=== PATIENT | male | born 1935 | race Caucasian/White ===

== ENCOUNTER 2017-09-11 09:39 | Inpatient (IN) ==
--- NOTE | 2017-09-11 10:01 | Emergency Department Note ---
Disposition Clinical Impression: Hyperglycemia Diabetic foot ulcer Qualifiers: Diabetic foot ulcer location: unspecified part of foot Diabetes mellitus type: due to underlying condition Laterality: left Non-pressure ulcer stage: with other severity Qualified Code(s): E08.621 - Diabetes mellitus due to underlying condition with foot ulcer Disposition: Admitted As Inpatient Condition: Fair Time of Disposition: 10:03 Wound/Laceration HPI - General Chief Complaint: ED Wound/Laceration Stated Complaint: General Time Seen by Provider: 09/11/17 09:44 Source: patient, family Limitations: other (Alzheimer's dementia) Nursing Notes Reviewed: Yes Vital Signs Reviewed: Yes - History of Present Illness HPI Narrative: Patient sent to the emergency department for admission at the recommendation of the thermal surfacing machine operator. The patient has both peripheral arterial disease and diabetes causing a left plantar surface foot ulceration which is secondarily infected. Patient requires admission for debridement. He denies pain. Onset (ago): month(s) Extremity Location: Left: foot Treatments prior to arrival: bandage, other (Topical gentamicin) - Related Data Home Medications Medication Instructions Recorded Confirmed Aspirin [Adult Aspirin Regimen] 81 mg PO DAILY 05/08/17 09/11/17 Simvastatin [Zocor] 40 mg PO HS 05/08/17 09/11/17 Allergies Allergy/AdvReac Type Severity Reaction Status Date / Time No Known Allergies Allergy Verified 05/08/17 12:17 All systems ED: reviewed and negative except as stated. Constitutional: Reports: as per HPI Eyes: Reports: as per HPI ENT ED: Reports: as per HPI Cardiovascular: Reports: as per HPI Respiratory: Reports: as per HPI Gastrointestinal: Reports: as per HPI Genitourinary: Reports: as per HPI Musculoskeletal: Reports: as per HPI Integumentary: Reports: other (Left foot ulcer. Right third toe lesion) Neurological: Reports: as per HPI Psychiatric: Reports: as per HPI Endocrine: Reports: as per HPI Hematological/Lymphatic: Reports: as per HPI Allergic/Immunologic: Reports: as per HPI Past Medical History - Past Medical History Source: old records reviewed Medical history: Reports: coronary artery disease, dementia, diabetes, hyperlipidemia, hypertension, myocardial infarction Surgical history: Reports: coronary bypass (CABG) Psychiatric history: Reports: no psych history - Social History Smoking Status: Former smoker Alcohol use: Reports: none Drug use: Reports: none Physical Exam - General Limitations: no limitations General appearance: alert - Head Head exam: atraumatic - Eye Eye exam: Present: normal appearance - ENT ENT exam: normal exam - Neck Neck exam: Present: normal inspection, full ROM - Chest Chest inspection: Present: normal inspection, symmetric chest wall rise - Respiratory Respiratory exam: Present: normal lung sounds bilaterally - Cardiovascular Cardiovascular exam: Present: regular rate, normal rhythm, normal heart sounds - Rectal Exam Rectal exam: Present: deferred - Extremities Exam Extremities exam: Present: other (Bandage over her right lower extremity third digit) - Expanded Lower Extremity Exam Lower leg exam: Present: normal inspection Ankle exam: Present: normal inspection Foot/toe exam: Present: other (Quarter-sized ulcerative lesion to the plantar surface of the left foot with necrotic tissue present around the edges. Exposed soft tissue and suspected exposure of flexor tendons.) - Neurological Exam Neurological exam: Present: alert - Psychiatric Psychiatric exam: Present: normal mood, flat affect - Skin Skin exam: Present: warm, dry Course Course Narrative: Patient presents at the recommendation of the thermal surfacing machine operator due to a diabetic foot ulcer. I will obtain basic labs and contact the hospitalist for admission Vital Signs Temperature 97.7 F 09/11/17 09:40 Pulse Rate 68 09/11/17 09:40 Respiratory Rate 18 09/11/17 09:40 Blood Pressure 132/69 09/11/17 09:40 O2 Sat by Pulse Oximetry 98 09/11/17 09:40 Temperature 97.7 F 09/11/17 10:21 Pulse Rate 68 09/11/17 10:21 Respiratory Rate 18 09/11/17 10:21 Blood Pressure 132/69 09/11/17 10:21 O2 Sat by Pulse Oximetry 98 09/11/17 10:21 Oxygen Delivery Oxygen Delivery Room Air Wound/Laceration - Lab Data Lab results reviewed: Yes I reviewed the patient's lab results. Result diagrams: 09/11/17 10:14 09/11/17 10:14 Lab Results 09/11/17 09/11/17 09/11/17 Range/Units 10:14 10:14 10:14 WBC 10.5 (4.3-11.1) K/mcL RBC 4.42 (4.19-5.50) M/mcL Hgb 13.9 (12.9-16.9) g/dL Hct 42.4 (37.5-50.1) % MCV 95.9 (83.0-100.0) fL MCH 31.4 (28.0-33.3) pg MCHC 32.8 (31.6-35.5) g/dL RDW 14.2 (11.5-14.5) % Plt Count 260 (140-400) K/mcL MPV 10.8 (9.4-12.4) fL Immature Gran % 0.5 (0-4) % Seg Neutrophils % 76.2 % Lymphocytes % 13.6 % Monocytes % 8.8 % Eosinophils % 0.6 % Basophils % 0.3 % Neutrophils # 8.0 (1.6-8.9) K/mcL Lymphocytes # 1.4 (0.6-4.6) K/mcL Monocytes # 0.9 (0.0-1.3) K/mcL Eosinophils # 0.1 (0.0-0.6) K/mcL Basophils # 0.0 (0.0-0.2) K/mcL PT 14.4 H (9.4-12.1) Seconds INR 1.3 Sodium 134 L (136-145) mEq/L Potassium 4.3 (3.5-5.1) mEq/L Chloride 102 (98-107) mEq/L Carbon Dioxide 23 (23-29) mEq/L BUN 18 (8-23) mg/dL Creatinine 1.11 (0.70-1.30) mg/dL Est GFR ( Amer) > 60 (> 60) Est GFR (Non-Af Amer) > 60 (> 60) BUN/Creatinine Ratio 16 (6-26) Glucose 295 H (70-105) mg/dL Calculated Osmolality 291 (280-300) Calcium 9.0 (8.6-10.3) mg/dL Total Bilirubin 0.7 (0.3-1.0) mg/dL AST 54 H (13-39) Units/L ALT 83 H (7-52) Units/L Alkaline Phosphatase 77 (34-104) Units/L Serum Total Protein 7.2 (6.4-8.9) g/dL Albumin 3.8 (3.5-5.7) g/dL Globulin 3.4 (2.4-3.5) g/dL Albumin/Globulin Ratio 1.1 (1.1-2.2) - Radiology Data Radiology results reviewed: Yes I reviewed the patient's radiology results.
[2017-09-11 10:38] LABS: Basophils % 0.3 %; Eosinophils # 0.1 K/mcL (0.0-0.6); Eosinophils % 0.6 %; Hematocrit 42.4 % (37.5-50.1); Hemoglobin 13.9 g/dL (12.9-16.9); Immature Granulocytes % 0.5 % (0-4); Lymphocytes # 1.4 K/mcL (0.6-4.6); Lymphocytes % 13.6 %; Mean Corpuscular HGB Conc 32.8 g/dL (31.6-35.5); Mean Corpuscular Hemoglobin 31.4 pg (28.0-33.3); Mean Corpuscular Volume 95.9 fL (83.0-100.0); Mean Platelet Volume 10.8 fL (9.4-12.4); Monocytes # 0.9 K/mcL (0.0-1.3); Monocytes % 8.8 %; Platelet Count 260 K/mcL (140-400); Red Blood Count 4.42 M/mcL (4.19-5.50); Red Cell Distribution Width 14.2 % (11.5-14.5); Segmented Neutrophils % 76.2 %
[2017-09-11 10:47] LABS: INR 1.3; Prothrombin Time 14.4 Seconds (9.4-12.1)
[2017-09-11] MEDS: Gentamicin Oint 15 GM TUBE TP ONE (11:25)
[2017-09-11 11:57] LABS: Alanine Aminotransferase 83 Units/L (7-52); Albumin 3.8 g/dL (3.5-5.7); Albumin/Globulin Ratio 1.1 (1.1-2.2); Alkaline Phosphatase 77 Units/L (34-104); Aspartate Amino Transferase 54 Units/L (13-39); BUN/Creatinine Ratio 16 (6-26); Bilirubin,Total 0.7 mg/dL (0.3-1.0); Blood Urea Nitrogen 18 mg/dL (8-23); Carbon Dioxide 23 mEq/L (23-29); Chloride 102 mEq/L (98-107); Globulin 3.4 g/dL (2.4-3.5); Glucose 295 mg/dL (70-105); Osmolality,Calculated 291 (280-300); Potassium 4.3 mEq/L (3.5-5.1); Sodium 134 mEq/L (136-145); Total Protein 7.2 g/dL (6.4-8.9); eGFR For African Americans > 60 (> 60); eGFR For Non-African Americans > 60 (> 60)
--- NOTE | 2017-09-11 13:28 | Podiatry Consult Note ---
Date of Encounter: 09/11/17 Time of Encounter: 17:30 Assessment and Plan (1) Type 2 diabetes mellitus with foot ulcer Current visit: Yes Status: Acute Qualifiers: Diabetes mellitus correction insulin use: without watermelon inspector use Qualified Code(s): E11.621 - Type 2 diabetes mellitus with foot ulcer; L97.509 - Non- pressure chronic ulcer of other part of unspecified foot with unspecified severity (2) Osteomyelitis of ankle and foot Current visit: Yes Status: Acute Reviewed with patient and family his condition, my findings, and there are treatment options. going to partial 1st ray amputation, right 3rd digit amputation after having the risks vs benefits potential complications and consequences of surgery and condition discussed. no guarantees made as to the outcome. patient is high risk for limb loss. will require nursing facility after surgery. get ID consult to follow for abx recs. will be non-weight bearing the left foot following surgery and on bed rest. patient unable to remain non-weight bearing at home due to condition and memory loss. POA signed consent. NPO after breakfast. History of Present Illness HPI: Mr. Cano is a 81 year old male with a history of Alzheimer's and diabetes. His diabetes is under good control. He also has vascular disease. He has a chronic wound submetatarsal one on the left foot with exposed bone and a right third digit ulceration which also has exposed bone. Patient has failed all conservative treatment and admitted to the hospital for surgical intervention and senior living placement. Family reports the area became red and swollen with increased drainage on the left foot. Past Med Surg Social Fam HX - Past Medical History Medical history: coronary artery disease, dementia, diabetes, hyperlipidemia, hypertension, myocardial infarction Psychiatric history: no psych history - Past Surgical History Surgical History: coronary bypass (CABG) - Social History Smoking Status: Former smoker Alcohol use: none Drug use: none - Family History Father Living Status: Hx Family Cardiac Disorders: Yes Hx Family Respiratory Disorders: No Hx Family Cancer: No Hx Family GI Disorders: No Hx Family Endocrine Disorder: No Hx Family Neuromuscular Disorders: No Hx Family Neurologic Disorders: No Hx Family HEENT Disorders: No Hx Family Autoimmune Disorders: No Mother Living Status: Hx Family Cardiac Disorders: Yes Hx Family Respiratory Disorders: No Hx Family Cancer: No Hx Family GI Disorders: No Hx Family Endocrine Disorder: No Hx Family Neuromuscular Disorders: No Hx Family Neurologic Disorders: No Hx Family HEENT Disorders: No Hx Family Autoimmune Disorders: No Brother History Unknown: Yes Living Status: Age at : 80 Cause of : Unknown Medications and Allergies Aspirin [Adult Aspirin Regimen] 81 mg PO DAILY 05/08/17 [History] Simvastatin [Zocor] 40 mg PO HS 05/08/17 [History] 3 Allergy/AdvReac Type Severity Reaction Status Date / Time metoprolol AdvReac Rash Verified 09/11/17 13:24 All Systems Reviewed: The remainder of the systems were reviewed and are negative - Constitutional Constitutional: no fever(s) - Cardiovascular Cardiovascular: no chest pain, no dyspnea - Respiratory Respiratory: no cough, no dyspnea - Musculoskeletal Musculoskeletal: joint swelling, numbness Physical Exam - Constitutional Vitals: Temp Pulse Resp BP Pulse Ox 97.7 F 68 18 132/69 98 09/11/17 10:21 09/11/17 10:21 09/11/17 10:21 09/11/17 10:21 09/11/17 10:21 Exam: well developed and nourished male left plantar submet 1 bone exposed, tendon exposed, circular wound [id number]. periowound erythema. increased serous drainage. no fluctuance. pain with palpation of ulceration site. pain with palpation right 3rd toe. right 3rd toe erythema. diminished protective sensation. Results - Labs Result Diagrams: 09/11/17 10:14 09/11/17 10:14 Labs: Abnormal lab results PT 14.4 Seconds (9.4-12.1) H 09/11/17 10:14 Sodium 134 mEq/L (136-145) L 09/11/17 10:14 Glucose 295 mg/dL (70-105) H 09/11/17 10:14 AST 54 Units/L (13-39) H 09/11/17 10:14 ALT 83 Units/L (7-52) H 09/11/17 10:14 All other labs normal. Consult Discharge Plan - Plan Referrals: Brock Ridley DO [Primary Care Provider] -
[2017-09-11] MEDS ORDERED: *HR* Dextrose 50 % in Water (Syg) 50 ML SYRINGE IVP PRN (13:40)
[2017-09-11] MEDS ORDERED: D5% in Water 1,000 ML IVC PRN (13:40)
[2017-09-11] MEDS ORDERED: Dextrose Gel 15 GM/37.5 ML TUBE PO PRN ×2 (13:40)
[2017-09-11] MEDS ORDERED: Naloxone 0.4 MG/ML INJ IVP PRN (13:49)
--- NOTE | 2017-09-11 14:43 | Internal Med History&Physical ---
<AshcristinaangieRiaz castañeda - Last Filed: 09/11/17 15:22> Date of Encounter: 09/11/17 Time of Encounter: 13:00 Internal Medicine - H&P: HPI Chief complaint: Pain/Wound to left foot Admitted From: Emergency Dept Plans for Post Hospital Care: Transfer Longterm Facility History of present illness: Mr. Cano is a 81 year old male w/PMH of CAD, dementia, diabetes that was previously controlled with metformin and now is not well-controlled, HLD, HTN, and previous VA greater than 10 years ago requiring coronary bypass presents from the ED with chief complaint of pain, swelling, and discharge from a diabetic ulcer of the left foot on the plantar surface. Patient states family state they were unaware of foot ulcer until recently. Patient has history of underlying dementia. Patient's states patient had fever and sweats 2 nights ago and appeared altered in mentation more so than usual. Patient denies pain currently in foot. Pt. denies recent illness, nausea, vomiting, changes in vision, unusual bleeding, headache, cough, chest congestion, shortness of breath, chest pain, palpitations, abdominal pain, diarrhea, constipation, dizziness, lightheadedness, numbness, tingling, pre-syncope, or syncope. Past Med Surg Social Fam HX - Past Medical History Source: patient, old records reviewed, obtained from family Medical history: coronary artery disease, dementia, diabetes, hyperlipidemia, hypertension, myocardial infarction (>15 years ago resulting in CABG) Psychiatric history: no psych history - Past Surgical History Surgical History: coronary bypass (CABG) - Social History Smoking Status: Former smoker Packs per day: 1 PPD - Reports quittin in 1979 Alcohol use: none Drug use: none Current living situation: Home, With Family Activity Level: Independent ambulation Recent Out of Country Travel Within the Last 8 Weeks: No Exposure or Possible Exposure to Illness During Travel: No - Family History Father Race: Family Member Ethnicity: Non- Living Status: Age at : 85 Cause of : CHF Hx Family Cardiac Disorders: Yes (CHF, PAD) Mother Race: Family Member Ethnicity: Non- Living Status: Age at : 93 Cause of : CHF Hx Family Cardiac Disorders: Yes (CHF, CAD, CABG) Brother History Unknown: Yes Living Status: Age at : 80 Cause of : Unknown Internal Medicine - H&P: Meds Aspirin [Adult Aspirin Regimen] 81 mg PO DAILY 05/08/17 [History] Simvastatin [Zocor] 40 mg PO HS 05/08/17 [History] 3 Allergy/AdvReac Type Severity Reaction Status Date / Time metoprolol AdvReac Rash Verified 09/11/17 13:24 All Systems PM: A 10-system review of systems was performed and is negative for pertinent findings except as documented above in the HPI. - Constitutional Constitutional: as per HPI, chills, excessive sweating, fever(s), no night sweats - EENT Eyes: no change in vision, no discharge, no pain, no photophobia Ears: no ear discharge, no ear pain, no tinnitus Nose, mouth and throat: no dysphagia, no nasal discharge, no neck pain, no sore throat - Breasts Breasts: as per HPI - Cardiovascular Cardiovascular ROS IM: no chest pain, no diaphoresis, no dyspnea, no lightheadedness, no palpitations, no syncope - Respiratory Respiratory: no cough, no dyspnea, no wheezing, no excessive phlegm production - Gastrointestinal Gastrointestinal: no abdominal pain, no diarrhea, no hematemesis, no hematochezia, no melena, no nausea, no vomiting - Genitourinary Genitourinary ROS male: as per HPI - Musculoskeletal Musculoskeletal ROS IM: no numbness, no tingling - Integumentary Integumentary IM: as per HPI, erythema (Left foot plantar region), skin ulcer ( Left foot) - Neurological Neurological ROS: no confusion, no convulsions, no focal weakness, no numbness, no tingling, no tremor(s) - Psychiatric Psychiatric: as per HPI - Endocrine Endocrine IM: as per HPI - Hematologic/Lymphatic Hematologic/Lymphatic: no easy bruising - Allergic/Immunologic Allergic/Immunologic: as per HPI - Constitutional Vitals: Temp Pulse Resp BP Pulse Ox 97.7 F 68 18 132/69 98 09/11/17 10:21 09/11/17 10:21 09/11/17 10:21 09/11/17 10:21 09/11/17 10:21 General appearance: Present: cooperative, A&O X 2, pleasant, no acute distress, answers questions appropriately - Head Head exam: Present: atraumatic, normocephalic - Eye Eye exam: Present: PERRL, conjuntiva pink, sclera anicteric Pupils: Present: PERRL - ENT ENT exam: Present: normal exam - Neck Neck exam general surgery: Present: normal inspection, supple, trachea midline. Absent: lymphadenopathy - Respiratory Respiratory exam: Present: CTAB. Absent: accessory muscle use, rales, rhonchi, wheezes - Cardiovascular Cardiovascular exam: Present: RRR, +S1, +S2. Absent: diastolic murmur, gallop, rubs, systolic murmur - GI/Abdominal GI/Abdominal exam: Present: normal bowel sounds, soft, no peritoneal signs. Absent: distended, tenderness - Rectal Rectal exam: Present: deferred - Additional comments: exam deferred. - Extremities Exam Extremities exam: Present: warm, radial pulses palpable and symmetrical. Absent : calf tenderness, cyanotic, pedal edema - Back Exam Back exam: Present: normal inspection - Neurological Exam Neurological exam: Present: CN II-XII intact, oriented X3, no focal deficits. Absent: pronater drift, facial droop, speech deficit - Psychiatric Psychiatric exam: Present: normal affect, normal mood - Skin Skin exam: Present: dry, intact Internal Med - H&P Results - Labs CBC & Chem 7: 09/11/17 10:14 09/11/17 10:14 - Diagnostic Studies Other Images Additional comments: Impressions Foot X-Ray 09/11/17 09:55 IMPRESSION: 1. Ulceration in the plantar left forefoot at the level of the 1st metatarsophalangeal joint with no definite findings of underlying osteomyelitis. Consider further evaluation with MRI if this is a clinical concern. Minimal adjacent soft tissue gas is likely related to the open wound, and the appearance is not suggestive of necrotizing fasciitis. 2. Bony demineralization. D/ / Bong Astorga MD / Bong Astorga MD Interpreting Provider: Bong Astorga MD - Assessment and plan (1) Diabetic foot ulcer Current Visit: Yes Status: Acute Assessment and plan: Acute diabetic foot ulcer of the left foot on the plantar region. 3V XR shows ulceration in the plantar left forefoot at the level of the first metatarsophalangeal joint with no definite findings of underlying osteomyelitis. Consider further evaluation with MRI if this is a clinical concern. Minimal adjacent soft tissue gas is likely related to the open wound and the appearance is not suggestive necrotizing fasciitis. Bony demineralization. Pt. has hx of diabetes that is not well-controlled and dementia. Family states they were unaware of the pts. foot ulcer. MRI ordered. Podiatry consult ordered in ED and I appreciate the consult. Wound care and wound culture ordered. Blood cultures x2 ordered. IVPB vancomycin with pharmacy dosing and Zosyn 3.375 gm every 8 hour ordered for infection coverage. Stair- step pain medication for pain mgmt. Falls/safety precautions and up with assist only. Pt. discussed w/Dr. Edouard who agrees w/plan of care. Pt. is high risk for further morbidity and infection d/t advanced stage of wound requiring debridement and IV abx, uncontrolled diabetes, hx, and risk factors. Inpatient. Qualifiers: Diabetic foot ulcer location: unspecified part of foot Diabetes mellitus type: due to underlying condition Laterality: left Non-pressure ulcer stage : with other severity Qualified Code(s): E08.621 - Diabetes mellitus due to underlying condition with foot ulcer; L97.528 - Non-pressure chronic ulcer of other part of left foot with other specified severity (2) Hyperglycemia Current Visit: Yes Status: Acute Assessment and plan: Hx of diabetes that was previously controlled by metformin was discontinued due to patient becoming hypoglycemic. Patient's BG on admission 295. BG checks before meals at bedtime. A1c in a.m. labs. Add low-dose correction insulin sliding scale hypoglycemic protocol. Senior Medical Director consult and Nutrition consult focusing on diabetic diet ordered. (3) CAD (coronary artery disease) Current Visit: Yes Status: Chronic Assessment and plan: Hx of CAD w/previous hx of VA and CABG >10 years ago. Continuous cardiac telemetry. Continue pts. aspirin and Simvastatin. Qualifiers: Coronary Disease-Associated Artery/Lesion type: unspecified vessel or lesion type [place] vs. transplanted heart: [place] heart Associated angina: angina presence unspecified Qualified Code(s): I25.10 - Atherosclerotic heart disease of [place] coronary artery without angina pectoris (4) Dementia Current Visit: Yes Status: Chronic Assessment and plan: Hx of chronic dementia. Pts. family states that pt. was supposed to be started on 10 mg of Aricept HS but the prescription was lost. 10 mg Aricept ordered and should be added to pts. home medication list. Will add sitter if pt. becomes confused and/or agitated. Pts. reports fever/chills and AMS 2 days ago w/ mentation changes worse than baseline. U/A reflex micro and culture ordered to r /o UTI. Qualifiers: Dementia type: unspecified type Dementia behavioral disturbance: without behavioral disturbance Qualified Code(s): F03.90 - Unspecified dementia without behavioral disturbance (5) HLD (hyperlipidemia) Current Visit: Yes Status: Chronic Assessment and plan: Hx of chronic HLD. Lipid panel in a.m. labs. Continue pts. Simvastatin. Qualifiers: Hyperlipidemia type: pure hypercholesterolemia Qualified Code(s): E78.00 - Pure hypercholesterolemia, unspecified; E78.0 - Pure hypercholesterolemia (6) HTN (hypertension) Current Visit: Yes Status: Chronic Assessment and plan: Hx of chronic HTN. Monitor pt. and VS. Pts. family reports his PCP stopped his BP meds. Hydralazine 10 mg Q6HR PRN w/parameters ordered. Qualifiers: Hypertension type: essential hypertension Qualified Code(s): I10 - Essential (primary) hypertension (7) DVT prophylaxis Current Visit: Yes Status: Acute Assessment and plan: Heparin 5,000 units SQ Q12HR for DVT prophylaxis. Monitor pt. for signs of bleeding. - Time Spent With Patient Total time spent is greater than 50% in coordination of care (as documented) at patient's floor/unit and/or counseling patient: Greater than 35 minutes <Nancie Edouard - Last Filed: 09/12/17 10:07> Date of Encounter: 09/12/17 Internal Medicine - H&P: HPI History of present illness: Mr. Cano is a 81 year old male All Systems PM: A 10-system review of systems was performed and is negative for pertinent findings except as documented above in the HPI. - Constitutional Vitals: Temp Pulse Resp BP Pulse Ox 98.8 F 62 14 129/67 96 09/12/17 06:37 09/12/17 06:37 09/12/17 06:37 09/12/17 06:37 09/12/17 06:37 Internal Med - H&P Results - Labs CBC & Chem 7: 09/12/17 00:55 09/12/17 00:55 Labs: Short CBC 09/12/17 Range/Units 00:55 WBC 11.0 (4.3-11.1) K/mcL Hgb 11.9 L D (12.9-16.9) g/dL Hct 36.2 L (37.5-50.1) % Plt Count 247 (140-400) K/mcL Neutrophils # 7.4 (1.6-8.9) K/mcL BMP 09/12/17 00:55 Sodium 136 Potassium 4.0 Chloride 105 Carbon Dioxide 26 BUN 19 Creatinine 1.25 Glucose 215 H Calcium 8.5 L Liver Function 09/12/17 Range/Units 00:55 Total Bilirubin 0.4 (0.3-1.0) mg/dL AST 62 H (13-39) Units/L ALT 85 H (7-52) Units/L Alkaline Phosphatase 85 (34-104) Units/L Albumin 3.4 L (3.5-5.7) g/dL Urine 09/11/17 Range/Units 16:33 Urine Color Yellow (Yellow) Urine Clarity Clear (Clear) Urine pH 5.5 (5.0-8.0) pH Units Ur Specific [place] > 1.030 H (1.010-1.025) Urine Protein 30 H (Neg-Trace) mg/dL Urine Glucose (UA) 250 H (Normal) mg/dL - Attending Attestation Seen and assessed. Continue antibiotics for foot ulcer and follow up podiatry recs. Agree with plan per TIMBER SURVEYOR - Assessment and plan (1) Diabetic foot ulcer Current Visit: Yes Status: Acute Qualifiers: Diabetic foot ulcer location: unspecified part of foot Diabetes mellitus type: due to underlying condition Laterality: left Non-pressure ulcer stage : with other severity Qualified Code(s): E08.621 - Diabetes mellitus due to underlying condition with foot ulcer; L97.528 - Non-pressure chronic ulcer of other part of left foot with other specified severity (2) Hyperglycemia Current Visit: Yes Status: Acute (3) CAD (coronary artery disease) Current Visit: Yes Status: Chronic Qualifiers: Coronary Disease-Associated Artery/Lesion type: unspecified vessel or lesion type [place] vs. transplanted heart: [place] heart Associated angina: angina presence unspecified Qualified Code(s): I25.10 - Atherosclerotic heart disease of [place] coronary artery without angina pectoris (4) Dementia Current Visit: Yes Status: Chronic Qualifiers: Dementia type: unspecified type Dementia behavioral disturbance: without behavioral disturbance Qualified Code(s): F03.90 - Unspecified dementia without behavioral disturbance (5) HLD (hyperlipidemia) Current Visit: Yes Status: Chronic Qualifiers: Hyperlipidemia type: pure hypercholesterolemia Qualified Code(s): E78.00 - Pure hypercholesterolemia, unspecified; E78.0 - Pure hypercholesterolemia (6) HTN (hypertension) Current Visit: Yes Status: Chronic Qualifiers: Hypertension type: essential hypertension Qualified Code(s): I10 - Essential (primary) hypertension (7) DVT prophylaxis Current Visit: Yes Status: Acute - Time Spent With Patient Total time spent is greater than 50% in coordination of care (as documented) at patient's floor/unit and/or counseling patient:
[2017-09-11 16:58] LABS: Bilirubin,Urine Negative (Negative); Blood,Urine Negative (Negative); Clarity,Urine Clear (Clear); Color,Urine Yellow (Yellow); Glucose,Urine (UA) 250 mg/dL (Normal); Ketones,Urine Negative (Negative); Leukocyte Esterase,Urine Negative (Negative); Nitrite,Urine Negative (Negative); PH,Urine 5.5 pH Units (5.0-8.0); Protein,Urine 30 mg/dL (Neg-Trace); Specific Gravity,Urine > 1.030 (1.010-1.025); Urobilinogen,Urine Normal (Normal)
[2017-09-11 17:00] LABS: Bacteria,Urine None Seen per hpf (None-Few); Hyaline Casts,Urine None Seen per lpf (None-Few); RBC,Urine 0-3 per hpf (0-3); Squamous Epithelial Cell,Urine Many per lpf (None-Few); WBC,Urine 0-3 per hpf (0-3)
[2017-09-11] MEDS: *HR* Heparin 5,000 UNIT/ML VIAL SQ SCH (18:15)
[2017-09-11] MEDS: Piperacillin/Tazobactam 3.375 GM in 0.9 % Sodium Chloride Mini Bag 100 ML IVPB SCH ×2 (18:16→23:45)
[2017-09-11] MEDS: Insulin LISPRO 300 UNITS/3 ML VIAL SQ SCH (18:33)
[2017-09-11] MEDS: Acetaminophen 325 MG TABLET PO PRN (20:40)
--- NOTE | 2017-09-11 20:57 | Anesthesia Evaluation PreOp ---
Date of Encounter: 09/11/17 Time of Encounter: 21:00 - Past History Planned Operation: Partial L 1st Ray Amp w/Flap closure, R-3rd toe Amp Cardiac History: [place] (>10yrs ago s/p CABG), HTN, Hyperlipidemia, Cardiac Surgery (CABG approx 2001), Other (CAD) Pulmonary History: Former smoker, Smoker (1ppd x 30yrs, qut 1979) SECRETARY History: Other (Dementia) Other Medical History: Diabetes Type II Anesthesia History: No Prior Anesthetic Complications, Past Anesthesia (CABG) Alcohol Use: none Drug use: none Medications and Allergies Aspirin [Adult Aspirin Regimen] 81 mg PO DAILY 05/08/17 [History] Simvastatin [Zocor] 40 mg PO HS 05/08/17 [History] 3 Allergy/AdvReac Type Severity Reaction Status Date / Time metoprolol AdvReac Rash Verified 09/11/17 13:24 - Meds/Allergy Pre-op Review Medications Reviewed: Yes Allergies Reviewed: Yes Beta Blockers on Current Med List: No (Not on inpatient list) Anesthesia Results - Labs 09/11/17 10:14 09/11/17 10:14 Laboratory Results WBC 10.5 K/mcL (4.3-11.1) 09/11/17 10:14 RBC 4.42 M/mcL (4.19-5.50) 09/11/17 10:14 Hgb 13.9 g/dL (12.9-16.9) 09/11/17 10:14 Hct 42.4 % (37.5-50.1) 09/11/17 10:14 MCV 95.9 fL (83.0-100.0) 09/11/17 10:14 MCH 31.4 pg (28.0-33.3) 09/11/17 10:14 MCHC 32.8 g/dL (31.6-35.5) 09/11/17 10:14 RDW 14.2 % (11.5-14.5) 09/11/17 10:14 Plt Count 260 K/mcL (140-400) 09/11/17 10:14 MPV 10.8 fL (9.4-12.4) 09/11/17 10:14 Immature Gran % 0.5 % (0-4) 09/11/17 10:14 Seg Neutrophils % 76.2 % 09/11/17 10:14 Lymphocytes % 13.6 % 09/11/17 10:14 Monocytes % 8.8 % 09/11/17 10:14 Eosinophils % 0.6 % 09/11/17 10:14 Basophils % 0.3 % 09/11/17 10:14 Neutrophils # 8.0 K/mcL (1.6-8.9) 09/11/17 10:14 Lymphocytes # 1.4 K/mcL (0.6-4.6) 09/11/17 10:14 Monocytes # 0.9 K/mcL (0.0-1.3) 09/11/17 10:14 Eosinophils # 0.1 K/mcL (0.0-0.6) 09/11/17 10:14 Basophils # 0.0 K/mcL (0.0-0.2) 09/11/17 10:14 PT 14.4 Seconds (9.4-12.1) H 09/11/17 10:14 INR 1.3 09/11/17 10:14 Sodium 134 mEq/L (136-145) L 09/11/17 10:14 Potassium 4.3 mEq/L (3.5-5.1) 09/11/17 10:14 Chloride 102 mEq/L (98-107) 09/11/17 10:14 Carbon Dioxide 23 mEq/L (23-29) 09/11/17 10:14 BUN 18 mg/dL (8-23) 09/11/17 10:14 Creatinine 1.11 mg/dL (0.70-1.30) 09/11/17 10:14 Est GFR ( Amer) > 60 (> 60) 09/11/17 10:14 Est GFR (Non-Af Amer) > 60 (> 60) 09/11/17 10:14 BUN/Creatinine Ratio 16 (6-26) 09/11/17 10:14 Glucose 295 mg/dL (70-105) H 09/11/17 10:14 Calculated Osmolality 291 (280-300) 09/11/17 10:14 Calcium 9.0 mg/dL (8.6-10.3) 09/11/17 10:14 Total Bilirubin 0.7 mg/dL (0.3-1.0) 09/11/17 10:14 AST 54 Units/L (13-39) H 09/11/17 10:14 ALT 83 Units/L (7-52) H 09/11/17 10:14 Alkaline Phosphatase 77 Units/L (34-104) 09/11/17 10:14 Serum Total Protein 7.2 g/dL (6.4-8.9) 09/11/17 10:14 Albumin 3.8 g/dL (3.5-5.7) 09/11/17 10:14 Globulin 3.4 g/dL (2.4-3.5) 09/11/17 10:14 Albumin/Globulin Ratio 1.1 (1.1-2.2) 09/11/17 10:14 Urine Color Yellow (Yellow) 09/11/17 16:33 Urine Clarity Clear (Clear) 09/11/17 16:33 Urine pH 5.5 pH Units (5.0-8.0) 09/11/17 16:33 Ur Specific [place] > 1.030 (1.010-1.025) H 09/11/17 16:33 Urine Protein 30 mg/dL (Neg-Trace) H 09/11/17 16:33 Urine Glucose (UA) 250 mg/dL (Normal) H 09/11/17 16:33 Urine Ketones Negative mg/dL (Negative) 09/11/17 16:33 Urine Blood Negative (Negative) 09/11/17 16:33 Urine Nitrite Negative (Negative) 09/11/17 16:33 Urine Bilirubin Negative (Negative) 09/11/17 16:33 Urine Urobilinogen Normal mg/dL (Normal) 09/11/17 16:33 Ur Leukocyte Esterase Negative (Negative) 09/11/17 16:33 Urine Microscopic RBC 0-3 per hpf (0-3) 09/11/17 16:33 Urine Microscopic WBC 0-3 per hpf (0-3) 09/11/17 16:33 Ur Squamous Epith Cells Many per lpf (None-Few) H 09/11/17 16:33 Urine Bacteria None Seen per hpf (None-Few) 09/11/17 16:33 Hyaline Casts None Seen per lpf (None-Few) 09/11/17 16:33 Ur Culture Indicated? NO (NO) 09/11/17 16:33 Impressions Foot X-Ray 09/11/17 09:55 IMPRESSION: 1. Ulceration in the plantar left forefoot at the level of the 1st metatarsophalangeal joint with no definite findings of underlying osteomyelitis. Consider further evaluation with MRI if this is a clinical concern. Minimal adjacent soft tissue gas is likely related to the open wound, and the appearance is not suggestive of necrotizing fasciitis. 2. Bony demineralization. D/ / Bong Astorga MD / Bong Astorga MD Interpreting Provider: Bong Astorga MD Foot MRI 09/11/17 12:36 IMPRESSION: 1. MRI signal characteristics compatible with osteomyelitis in the 1st metatarsal head and shaft, the 1st proximal phalangeal base and shaft, and the hallux sesamoids. 2. Mild bone marrow edema with normal T1 signal in the 2nd metatarsal head compatible with noninfectious reactive osteitis versus early osteomyelitis. 3. Deep soft tissue ulceration plantar to the 1st metatarsal head with soft tissue gas between the 1st and 2nd metatarsal heads. No sinus tract or drainable fluid collection. 4. The ulceration likely communicates with the flexor hallucis longus tendon sheath with mild tenosynovitis and a suspected high-grade or complete tear of the tendon. D/ / Sandeep Alejo MD / Sandeep Alejo MD Interpreting Provider: Sandeep Alejo MD - Imaging EKG: image reviewed (64bpm SR) Anesthesia Exam Vital Signs Temp Pulse Resp BP Pulse Ox 09/11/17 20:30 101.1 F H 86 15 145/72 98 09/11/17 14:38 97.9 F 66 15 148/74 99 09/11/17 10:21 97.7 F 68 18 132/69 98 09/11/17 09:40 97.7 F 68 18 132/69 98 Intake and Output 09/11/17 09/11/17 09/11/17 07:59 15:59 23:59 Intake Total 120 / 120 490 / 490 Output Total 0 / 0 0 / 0 Balance 120 / 120 490 / 490 Intake: IV Fluids 250 / 250 Vancocin 1,250 MG In 0.9 % 250 / 250 Sodium Chloride 250 ML @ 166.67 mls/hr IVPB Q12H [facility] Rx#: [id number] Oral 120 / 120 240 / 240 Output: Urine 0 / 0 0 / 0 Other: Meal Lunch Dinner Percent of Meal Consumed 100% 95% Weight 75.189 kg Blood Glucose* 250 Patient Weight 09/11/17 23:59 Weight 75.189 kg Height: 5'7" Weight: 165# BMI = 26 NPO (# of Hours): MNoc Pain Scale Used: Numeric (1 - 10) - HEENT Pupil (Motor): Pupils equal, EOMI Mallampati: III Teeth: Normal (Fair dentition with irregular, cracked surfaces) Oral Opening: Greater than 3 - SECRETARY LOC: Oriented SECRETARY Motor: Normal RUE, Normal LUE, Normal RLE, Normal LLE, Normal Face SECRETARY Sensory: Normal: RUE, LUE, RLE, LLE, Face - Cardiac Rhythm: Regular Murmur: None - Pulmonary Breath Sounds: bilateral Clear Respiratory Effort: Symmetrical Anesthesia Assess/Plan ASA Score: 3 Modified [place] Scale for Level of Consciousness: Cooperative, oriented, and tranquil Anesthetic Plan: General, MAC Monitoring Plan: Standard Monitors Recovery Plan: PACU Anes Supervising Prov Stmt: Pt seen/evaluted, R&B Discussed,questions answered and consent obtained. Alonso Lanier MD
[2017-09-11] MEDS ORDERED: Insulin LISPRO 300 UNITS/3 ML VIAL SQ SCH (21:00)
[2017-09-12 01:45] LABS: Basophils % 0.4 %; Eosinophils # 0.1 K/mcL (0.0-0.6); Eosinophils % 0.8 %; Hematocrit 36.2 % (37.5-50.1); Immature Granulocytes % 0.4 % (0-4); Lymphocytes # 2.2 K/mcL (0.6-4.6); Lymphocytes % 20.1 %; Mean Corpuscular HGB Conc 32.9 g/dL (31.6-35.5); Mean Corpuscular Volume 94.3 fL (83.0-100.0); Mean Platelet Volume 10.9 fL (9.4-12.4); Monocytes # 1.2 K/mcL (0.0-1.3); Monocytes % 11.1 %; Neutrophils # 7.4 K/mcL (1.6-8.9); Platelet Count 247 K/mcL (140-400); Red Blood Count 3.84 M/mcL (4.19-5.50); Red Cell Distribution Width 14.4 % (11.5-14.5); Segmented Neutrophils % 67.2 %
[2017-09-12 01:48] LABS: Hemoglobin 11.9 g/dL (12.9-16.9)
[2017-09-12 02:05] LABS: Alanine Aminotransferase 85 Units/L (7-52); Albumin 3.4 g/dL (3.5-5.7); Albumin/Globulin Ratio 1.1 (1.1-2.2); Alkaline Phosphatase 85 Units/L (34-104); Aspartate Amino Transferase 62 Units/L (13-39); BUN/Creatinine Ratio 15 (6-26); Bilirubin,Total 0.4 mg/dL (0.3-1.0); Blood Urea Nitrogen 19 mg/dL (8-23); Calcium 8.5 mg/dL (8.6-10.3); Carbon Dioxide 26 mEq/L (23-29); Chloride 105 mEq/L (98-107); Chol/HDL Ratio 3.6 (0-4.9); Cholesterol 79 mg/dL (< 200); Globulin 3.2 g/dL (2.4-3.5); Glucose 215 mg/dL (70-105); HDL Cholesterol 22 mg/dL (40-59); LDL Cholesterol,Calculated 39 mg/dL (0-99); Magnesium 2.2 mg/dL (1.6-2.6); Osmolality,Calculated 291 (280-300); Sodium 136 mEq/L (136-145); Total Protein 6.6 g/dL (6.4-8.9); Triglycerides 88 mg/dL (< 150); eGFR For African Americans > 60 (> 60); eGFR For Non-African Americans 55 (> 60)
[2017-09-12] MEDS: Acetaminophen 325 MG TABLET PO PRN ×2 (05:06→14:23)
[2017-09-12] MEDS: *HR* Heparin 5,000 UNIT/ML VIAL SQ SCH (05:06)
[2017-09-12] MEDS: Piperacillin/Tazobactam 3.375 GM in 0.9 % Sodium Chloride Mini Bag 100 ML IVPB SCH ×2 (08:36→23:06)
[2017-09-12] MEDS ORDERED: Aspirin Enteric Coated 81 MG Tablet PO SCH (09:00)
[2017-09-12] MEDS: Insulin LISPRO 300 UNITS/3 ML VIAL SQ SCH ×2 (12:22→23:07)
[2017-09-12] MEDS: Gentamicin Oint 15 GM TUBE TP ONE (12:31)
[2017-09-12 14:15] LABS: Estimated Average Glucose 143 mg/dl; Hemoglobin A1C 6.6 %
[2017-09-12] MEDS ORDERED: *HR* FentaNYL (PF) 100 MCG/2 ML VIAL ONE (15:15)
[2017-09-12] MEDS ORDERED: Bupivacaine/EPI 1:200k 0.25%PF 30 ML VIAL ONE (15:15)
[2017-09-12] MEDS ORDERED: Lidocaine 1% 20 ML MDV ONE (15:15)
[2017-09-12] MEDS ORDERED: *HR* Propofol 200 MG/20 ML VIAL IVP ONE (15:15)
[2017-09-12] MEDS ORDERED: Propofol 500 MG/50 ML INFUS..BTL ONE (15:31)
[2017-09-12] MEDS ORDERED: Lidocaine -MPF 2% 2 ML VIAL ONE (16:57)
--- NOTE | 2017-09-12 18:10 | Operative Note ---
Date of procedure: 09/12/17 Pre-op diagnosis: left foot osteomyelitis, right 3rd toe osteomyelitis, chronic ulcer Post-op diagnosis: same Procedure: left partial 1st ray amputation left soft tissue rearrangement right 3rd digit amputation at the level of the interphalangeal joint Anesthesia: MAC Local Anesthetics: 1% Lidocaine HCL SubQ (cc) Surgeon: Navdeep Ríos Was there an clinic assistant present: No Estimated blood loss (cc): 50 Specimen: path-left foot bone, right 3rd toe micro-bone left foot, ulcer Condition: stable Disposition: PACU Procedure in Detail: Indications: A 81-year-old diabetic male with dementia and unable to follow instructions due to his mental status has a worsening left foot ulceration with underlying osteomyelitis and they will so infection of the right third toe distal phalanx. He was admitted to the hospital. Nature of the above procedures, risks versus benefits potential complications and consequences of surgery and his condition discussed at length with the patient and his power of environmental attorney. No guarantees were made as to the outcome of any procedure and they understood that the tissue condyle with his inadequate blood flow which is unable to be restored. He has been evaluated by vascular surgery. No intervention was able to be done. Patient was taken from preoperative holding area and operating room placed on the operating room table in the supine position 1% lidocaine plain was injected into both the right and left foot. The right and left foot were scrubbed prepped and draped in the usual sterile fashion and the following procedures began. No tourniquet was used during the entire procedure. Right third digit amputation. Attention was directed to the right third digit where a [place] type incision was made full-thickness down to the level of the bone over the right third digit. The distal aspect of the toe was grasped and purulent drainage was noted to be expressed from the soft tissue. The toe was disarticulated at the proximal interphalangeal joint. The tissue left behind was inspected and no devitalized tissue was present. There was no erythema of the remaining skin and it was deemed adequate for closure. The right third digit was sent to pathology. Tendons were cut back as far proximal as possible. The site was flushed with normal sterile saline mixed with vancomycin and 3-0 Prolene was used to close the site. Attention was then directed to the left foot. Soft tissue rearrangement left foot and partial first ray amputation left foot. Attention was directed to the plantar aspect of the patient's left foot where a 2.5 cm x 2.5 cm x 0.5cm ulceration was present with exposed bone and tendon. An incision was made on the plantar aspect of the foot full-thickness starting at the distal aspect of the hallux extending to the ulceration. The ulceration was excised. Culture swab of the ulcer site was taken. Significant devitalized tissue was present deep to the ulceration and surrounding adjacent tissue. The incision was extended proximally along the plantar aspect of the first metatarsal. The proximal and distal phalanx were freed from their soft tissue attachments as was the metatarsal plantarly. The sagittal saw was then used to cut the first metatarsal bone. The bone of the proximal phalanx distal phalanx and first metatarsal were then removed. The bone that was directly beneath the ulceration and the bone of the first metatarsophalangeal joint was noted to be dark in appearance and devitalized. Bone was sent to both microbiology and path collagen. The sesamoids were also excised. The site was flushed with 3 L of saline with 3 grams of vancomycin. Devitalized tissue present in the plantar aspect of the foot was excised using a #15 blade. The rasp was used to smooth the end of the first metatarsal remaining. Flexor and extensor tendons cut back as far proximal as possible. With the partial first ray amputation performed and nonviable tissue adequately excised and no purulence able to be expressed from any site, the decision was made to perform a soft tissue rearrangement flap an effort to close the plantar left foot wound. Adequate hemostasis was felt to be present and no active bleeding. There was evidence of blood at the amputation site in the soft tissue. The distal toe soft tissue was then used as a flap and rotated to the plantar aspect of the foot and 2-0 nylon was used to close over the soft tissue defect. The flap of skin was also cut with a #15 blade and rotated medially and utilized to cover the remaining soft tissue wound/defect. The skin flap was sutured into place using 2-0 nylon. Closure of the wound had been achieved. The flap site on the left site was warm to touch as was the amputation site of the right third digit. Postoperative bandaging included Adaptic, 4 x 4 gauze, ABD pad, Kerlix and Darrius and a loosely applied Corey wrap. The patient tolerated the anesthesia and the procedure well and was escorted the recovery room with vital signs stable. He will return to the floor where he will remain on bedrest at this time.
[2017-09-12] MEDS ORDERED: *HR* OxyCODONE/APAP 5/325 TABLET PO PRN (18:13)
[2017-09-12] MEDS ORDERED: Acetaminophen 325 MG TABLET PO PRN (18:25)
[2017-09-12] MEDS ORDERED: Naloxone 0.4 MG/ML INJ IVP PRN (18:25)
[2017-09-12] MEDS ORDERED: D5% in Water 1,000 ML IVC PRN (18:25)
[2017-09-12] MEDS ORDERED: *HR* Dextrose 50 % in Water (Syg) 50 ML SYRINGE IVP PRN (18:25)
[2017-09-12] MEDS ORDERED: Dextrose Gel 15 GM/37.5 ML TUBE PO PRN ×2 (18:25)
[2017-09-12] MEDS: *HR* OxyCODONE/APAP 5/325 TABLET PO PRN (18:40)
[2017-09-13 04:12] LABS: Basophils % 0.3 %; Eosinophils % 0.2 %; Hematocrit 35.5 % (37.5-50.1); Hemoglobin 11.9 g/dL (12.9-16.9); Immature Granulocytes % 0.4 % (0-4); Lymphocytes # 1.3 K/mcL (0.6-4.6); Lymphocytes % 10.9 %; Mean Corpuscular HGB Conc 33.5 g/dL (31.6-35.5); Mean Corpuscular Hemoglobin 30.7 pg (28.0-33.3); Mean Corpuscular Volume 91.7 fL (83.0-100.0); Mean Platelet Volume 10.7 fL (9.4-12.4); Monocytes # 1.1 K/mcL (0.0-1.3); Monocytes % 8.7 %; Neutrophils # 9.7 K/mcL (1.6-8.9); Platelet Count 246 K/mcL (140-400); Red Blood Count 3.87 M/mcL (4.19-5.50); Red Cell Distribution Width 14.2 % (11.5-14.5); Segmented Neutrophils % 79.5 %
[2017-09-13 04:37] LABS: Alanine Aminotransferase 74 Units/L (7-52); Albumin 3.2 g/dL (3.5-5.7); Alkaline Phosphatase 73 Units/L (34-104); Aspartate Amino Transferase 53 Units/L (13-39); BUN/Creatinine Ratio 16 (6-26); Bilirubin,Total 0.7 mg/dL (0.3-1.0); Blood Urea Nitrogen 16 mg/dL (8-23); Calcium 8.4 mg/dL (8.6-10.3); Carbon Dioxide 22 mEq/L (23-29); Chloride 104 mEq/L (98-107); Globulin 3.2 g/dL (2.4-3.5); Glucose 182 mg/dL (70-105); Osmolality,Calculated 288 (280-300); Potassium 3.8 mEq/L (3.5-5.1); Sodium 136 mEq/L (136-145); Total Protein 6.4 g/dL (6.4-8.9); eGFR For African Americans > 60 (> 60); eGFR For Non-African Americans > 60 (> 60)
[2017-09-13] MEDS: *HR* Heparin 5,000 UNIT/ML VIAL SQ SCH ×2 (06:06→17:44)
[2017-09-13] MEDS: Insulin LISPRO 300 UNITS/3 ML VIAL SQ SCH ×4 (10:03→21:11)
[2017-09-13] MEDS: Aspirin Enteric Coated 81 MG Tablet PO SCH (10:04)
[2017-09-13] MEDS: Piperacillin/Tazobactam 3.375 GM in 0.9 % Sodium Chloride Mini Bag 100 ML IVPB SCH ×2 (10:11→16:32)
[2017-09-13] MEDS: *HR* OxyCODONE/APAP 5/325 TABLET PO PRN (14:53)
[2017-09-14] MEDS: Piperacillin/Tazobactam 3.375 GM in 0.9 % Sodium Chloride Mini Bag 100 ML IVPB SCH ×3 (00:15→16:51)
--- NOTE | 2017-09-14 00:29 | Internal Med Progress Note ---
Date of Encounter: 09/12/17 Time of Encounter: 19:00 - Assessment and plan (1) Type 2 diabetes mellitus with foot ulcer Current Visit: Yes Status: Acute Qualifiers: Diabetes mellitus middle or intermediate school principal insulin use: without middle or intermediate school principal use Qualified Code(s): E11.621 - Type 2 diabetes mellitus with foot ulcer; L97.509 - Non- pressure chronic ulcer of other part of unspecified foot with unspecified severity (2) Osteomyelitis of ankle and foot Current Visit: Yes Status: Acute (3) CAD (coronary artery disease) Current Visit: Yes Status: Chronic Qualifiers: Coronary Disease-Associated Artery/Lesion type: unspecified vessel or lesion type [place] vs. transplanted heart: [place] heart Associated angina: angina presence unspecified Qualified Code(s): I25.10 - Atherosclerotic heart disease of [place] coronary artery without angina pectoris (4) HTN (hypertension) Current Visit: Yes Status: Chronic Qualifiers: Hypertension type: essential hypertension Qualified Code(s): I10 - Essential (primary) hypertension (5) Dementia Current Visit: Yes Status: Chronic Qualifiers: Dementia type: unspecified type Dementia behavioral disturbance: without behavioral disturbance Qualified Code(s): F03.90 - Unspecified dementia without behavioral disturbance - Time Spent With Patient Total time spent is greater than 50% in coordination of care (as documented) at patient's floor/unit and/or counseling patient: 25 - 35 minutes - Subjective Interval history: .. The patient is very demented. He knows his first name. Otherwise, he is disoriented. He cannot tell me what has happened to him recently. No distress is seen. OBJECTIVE: .. Skin: Free of rash and discoloration. There is a dressing applied to his left foot. ENMT: Oral/pharyngeal mucosa is normal in appearance. Eyes: Sclera is white. There is no discharge from eyes. Respiratory: Normal breath sounds; no crackles or wheezes. CV: Heart is regular; no gallop or murmur. GI: Abdomen is soft and not tender. There is no palpable mass or visceromegaly. Neuro: There is no focal deficits. ASSESSMENT AND PLAN: .. Type 2 diabetes mellitus with diabetic foot ulcer, left foot. Has developed osteomyelitis. He is on IV vancomycin and IV Zosyn. We will continue with when necessary Humalog. He is scheduled for surgery on his left foot today evening. Coronary artery disease. Stable. Will provide him supportive treatment after the surgery. Hypertension. Under control. We will continue when necessary IV hydralazine. Dementia. We will continue supportive treatment. - Constitutional Vitals: Temp Pulse Resp BP Pulse Ox 99.3 F 75 17 132/60 97 09/13/17 23:14 09/13/17 23:14 09/13/17 23:14 09/13/17 23:14 09/13/17 23:14 General appearance: Present: cooperative, A&O X 2, pleasant, no acute distress, answers questions appropriately Internal Medicine: Result - Labs CBC & Chem 7: 09/14/17 08:30 09/14/17 08:30 Labs: Short CBC 09/13/17 Range/Units 03:42 WBC 12.2 H (4.3-11.1) K/mcL Hgb 11.9 L (12.9-16.9) g/dL Hct 35.5 L (37.5-50.1) % Plt Count 246 (140-400) K/mcL Neutrophils # 9.7 H (1.6-8.9) K/mcL BMP 09/13/17 03:42 Sodium 136 Potassium 3.8 Chloride 104 Carbon Dioxide 22 L BUN 16 Creatinine 1.02 Glucose 182 H Calcium 8.4 L Liver Function 09/13/17 Range/Units 03:42 Total Bilirubin 0.7 (0.3-1.0) mg/dL AST 53 H (13-39) Units/L ALT 74 H (7-52) Units/L Alkaline Phosphatase 73 (34-104) Units/L Albumin 3.2 L (3.5-5.7) g/dL - ABG Interpretation ABG results: PT/INR, D-dimer PT 14.4 Seconds (9.4-12.1) H 09/11/17 10:14 Consult Discharge Plan - Plan Referrals: Brock Ridley DO [Primary Care Provider] -
--- NOTE | 2017-09-14 00:31 | Internal Med Progress Note ---
Date of Encounter: 09/13/17 Time of Encounter: 19:00 - Assessment and plan (1) Type 2 diabetes mellitus with foot ulcer Current Visit: Yes Status: Acute Qualifiers: Diabetes mellitus catering convention services manager insulin use: without catering convention services manager use Qualified Code(s): E11.621 - Type 2 diabetes mellitus with foot ulcer; L97.509 - Non- pressure chronic ulcer of other part of unspecified foot with unspecified severity (2) Osteomyelitis of ankle and foot Current Visit: Yes Status: Acute (3) CAD (coronary artery disease) Current Visit: Yes Status: Chronic Qualifiers: Coronary Disease-Associated Artery/Lesion type: unspecified vessel or lesion type [place] vs. transplanted heart: [place] heart Associated angina: angina presence unspecified Qualified Code(s): I25.10 - Atherosclerotic heart disease of [place] coronary artery without angina pectoris (4) HTN (hypertension) Current Visit: Yes Status: Chronic Qualifiers: Hypertension type: essential hypertension Qualified Code(s): I10 - Essential (primary) hypertension - Time Spent With Patient Total time spent is greater than 50% in coordination of care (as documented) at patient's floor/unit and/or counseling patient: 25 - 35 minutes - Subjective Interval history: .. The patient is very demented. He knows his first name. Otherwise, he is disoriented. He had surgery on his left foot and right third digit amputation yesterday. No distress is seen. OBJECTIVE: .. Skin: Free of rash and discoloration. There is a surgical dressing applied to his left foot. ENMT: Oral/pharyngeal mucosa is normal in appearance. Eyes: Sclera is white. There is no discharge from eyes. Respiratory: Normal breath sounds; no crackles or wheezes. CV: Heart is regular; no gallop or murmur. GI: Abdomen is soft and not tender. There is no palpable mass or visceromegaly. Neuro: There is no focal deficits. ASSESSMENT AND PLAN: .. Type 2 diabetes mellitus with diabetic foot ulcer, left foot. Has developed osteomyelitis. He is on IV vancomycin and IV Zosyn. We will continue with when necessary Humalog. He underwent a left partial first ray amputation, left soft tissue rearrangement and right third digit amputation at the level of the interphalangeal joint. See notes from podiatry. Coronary artery disease. Stable. Will provide him supportive treatment after the surgery. Hypertension. Under control. We will continue when necessary IV hydralazine. Dementia. We will continue supportive treatment. - Constitutional Vitals: Temp Pulse Resp BP Pulse Ox 99.3 F 75 17 132/60 97 09/13/17 23:14 09/13/17 23:14 09/13/17 23:14 09/13/17 23:14 09/13/17 23:14 General appearance: Present: cooperative, A&O X 2, pleasant, no acute distress, answers questions appropriately Internal Medicine: Result - Labs CBC & Chem 7: 09/14/17 08:30 09/14/17 08:30 Labs: Short CBC 09/13/17 Range/Units 03:42 WBC 12.2 H (4.3-11.1) K/mcL Hgb 11.9 L (12.9-16.9) g/dL Hct 35.5 L (37.5-50.1) % Plt Count 246 (140-400) K/mcL Neutrophils # 9.7 H (1.6-8.9) K/mcL BMP 09/13/17 03:42 Sodium 136 Potassium 3.8 Chloride 104 Carbon Dioxide 22 L BUN 16 Creatinine 1.02 Glucose 182 H Calcium 8.4 L Liver Function 09/13/17 Range/Units 03:42 Total Bilirubin 0.7 (0.3-1.0) mg/dL AST 53 H (13-39) Units/L ALT 74 H (7-52) Units/L Alkaline Phosphatase 73 (34-104) Units/L Albumin 3.2 L (3.5-5.7) g/dL - ABG Interpretation ABG results: PT/INR, D-dimer PT 14.4 Seconds (9.4-12.1) H 09/11/17 10:14 Consult Discharge Plan - Plan Referrals: Brock Ridley DO [Primary Care Provider] -
[2017-09-14] MEDS: *HR* Heparin 5,000 UNIT/ML VIAL SQ SCH ×2 (05:00→16:52)
[2017-09-14 08:51] LABS: Basophils # 0.1 K/mcL (0.0-0.2); Basophils % 0.4 %; Eosinophils # 0.1 K/mcL (0.0-0.6); Eosinophils % 0.5 %; Hematocrit 36.3 % (37.5-50.1); Hemoglobin 11.6 g/dL (12.9-16.9); Immature Granulocytes % 0.5 % (0-4); Lymphocytes # 1.6 K/mcL (0.6-4.6); Lymphocytes % 11.9 %; Mean Corpuscular Hemoglobin 30.1 pg (28.0-33.3); Mean Corpuscular Volume 94.3 fL (83.0-100.0); Mean Platelet Volume 10.3 fL (9.4-12.4); Monocytes # 1.4 K/mcL (0.0-1.3); Monocytes % 10.5 %; Platelet Count 234 K/mcL (140-400); Red Blood Count 3.85 M/mcL (4.19-5.50); Segmented Neutrophils % 76.2 %
[2017-09-14] MEDS: Insulin LISPRO 300 UNITS/3 ML VIAL SQ SCH ×4 (08:59→20:47)
[2017-09-14] MEDS: Aspirin Enteric Coated 81 MG Tablet PO SCH (08:59)
[2017-09-14 09:01] LABS: Alanine Aminotransferase 66 Units/L (7-52); Albumin 3.2 g/dL (3.5-5.7); Alkaline Phosphatase 67 Units/L (34-104); Aspartate Amino Transferase 50 Units/L (13-39); BUN/Creatinine Ratio 15 (6-26); Bilirubin,Total 0.8 mg/dL (0.3-1.0); Blood Urea Nitrogen 16 mg/dL (8-23); Calcium 8.3 mg/dL (8.6-10.3); Carbon Dioxide 27 mEq/L (23-29); Chloride 105 mEq/L (98-107); Globulin 3.3 g/dL (2.4-3.5); Glucose 150 mg/dL (70-105); Osmolality,Calculated 284 (280-300); Potassium 4.1 mEq/L (3.5-5.1); Sodium 135 mEq/L (136-145); Total Protein 6.5 g/dL (6.4-8.9); eGFR For African Americans > 60 (> 60); eGFR For Non-African Americans > 60 (> 60)
[2017-09-14] MEDS: *HR* OxyCODONE/APAP 5/325 TABLET PO PRN (16:53)
--- NOTE | 2017-09-14 23:10 | Internal Med Progress Note ---
Date of Encounter: 09/14/17 Time of Encounter: 19:00 - Assessment and plan (1) Type 2 diabetes mellitus with foot ulcer Current Visit: Yes Status: Acute Qualifiers: Diabetes mellitus longterm insulin use: without keno terminal operator use Qualified Code(s): E11.621 - Type 2 diabetes mellitus with foot ulcer; L97.509 - Non- pressure chronic ulcer of other part of unspecified foot with unspecified severity (2) Osteomyelitis of ankle and foot Current Visit: Yes Status: Acute (3) CAD (coronary artery disease) Current Visit: Yes Status: Chronic Qualifiers: Coronary Disease-Associated Artery/Lesion type: unspecified vessel or lesion type [place] vs. transplanted heart: [place] heart Associated angina: angina presence unspecified Qualified Code(s): I25.10 - Atherosclerotic heart disease of [place] coronary artery without angina pectoris (4) HTN (hypertension) Current Visit: Yes Status: Chronic Qualifiers: Hypertension type: essential hypertension Qualified Code(s): I10 - Essential (primary) hypertension - Time Spent With Patient Total time spent is greater than 50% in coordination of care (as documented) at patient's floor/unit and/or counseling patient: 25 - 35 minutes - Subjective Interval history: .. The patient is very demented. He knows his first name. Otherwise, he is disoriented. He had surgery on his left foot and right third digit amputation the day before yesterday. No distress is seen. OBJECTIVE: .. Skin: Free of rash and discoloration. There is a surgical dressing applied to his left foot. He has amputated right third digit. ENMT: Oral/pharyngeal mucosa is normal in appearance. Eyes: Sclera is white. There is no discharge from eyes. Respiratory: Normal breath sounds; no crackles or wheezes. CV: Heart is regular; no gallop or murmur. GI: Abdomen is soft and not tender. There is no palpable mass or visceromegaly. Neuro: There is no focal deficits. ASSESSMENT AND PLAN: .. Type 2 diabetes mellitus with diabetic foot ulcer, left foot. Amputated right third digit. Has developed osteomyelitis. He is on IV vancomycin and IV Zosyn. We will continue with when necessary Humalog. He underwent a left partial first ray amputation, left soft tissue rearrangement and right third digit amputation at the level of the interphalangeal joint. See notes from podiatry. Coronary artery disease. Stable. Will provide him supportive treatment after the surgery. Hypertension. Under control. We will continue when necessary IV hydralazine. Dementia. We will continue supportive treatment. Disposition. The patient needs ECF to continue antibiotics and wound care. - Constitutional Vitals: Temp Pulse Resp BP Pulse Ox 100.5 F H 72 16 128/60 96 09/14/17 20:51 09/14/17 20:51 09/14/17 20:51 09/14/17 20:51 09/14/17 20:51 General appearance: Present: cooperative, A&O X 2, pleasant, no acute distress, answers questions appropriately Internal Medicine: Result - Labs CBC & Chem 7: 09/14/17 08:30 09/14/17 08:30 Labs: Short CBC 09/14/17 Range/Units 08:30 WBC 13.2 H (4.3-11.1) K/mcL Hgb 11.6 L (12.9-16.9) g/dL Hct 36.3 L (37.5-50.1) % Plt Count 234 (140-400) K/mcL Neutrophils # 10.0 H (1.6-8.9) K/mcL BMP 09/14/17 08:30 Sodium 135 L Potassium 4.1 Chloride 105 Carbon Dioxide 27 BUN 16 Creatinine 1.08 Glucose 150 H Calcium 8.3 L Liver Function 09/14/17 Range/Units 08:30 Total Bilirubin 0.8 (0.3-1.0) mg/dL AST 50 H (13-39) Units/L ALT 66 H (7-52) Units/L Alkaline Phosphatase 67 (34-104) Units/L Albumin 3.2 L (3.5-5.7) g/dL - ABG Interpretation ABG results: PT/INR, D-dimer PT 14.4 Seconds (9.4-12.1) H 09/11/17 10:14 - Impressions Impressions Foot X-Ray 09/13/17 15:42 IMPRESSION: Status post amputation of the phalanges and most of the metatarsal of the great toe. D/ / Victorino Butts MD / Victorino Butts MD Interpreting Provider: Victorino Butts MD Foot X-Ray 09/13/17 15:42 IMPRESSION: Unremarkable right foot following 3rd toe amputation. D/ / Matt Snowden MD / Matt Snowden MD Interpreting Provider: Matt Snowden MD Consult Discharge Plan - Plan Referrals: Brock Ridley DO [Primary Care Provider] -
[2017-09-15] MEDS: Piperacillin/Tazobactam 3.375 GM in 0.9 % Sodium Chloride Mini Bag 100 ML IVPB SCH ×3 (02:40→16:09)
[2017-09-15 05:07] LABS: Basophils % 0.3 %; Eosinophils # 0.2 K/mcL (0.0-0.6); Eosinophils % 1.5 %; Hematocrit 33.5 % (37.5-50.1); Hemoglobin 10.9 g/dL (12.9-16.9); Immature Granulocytes % 0.6 % (0-4); Lymphocytes # 1.8 K/mcL (0.6-4.6); Lymphocytes % 15.6 %; Mean Corpuscular HGB Conc 32.5 g/dL (31.6-35.5); Mean Corpuscular Hemoglobin 30.5 pg (28.0-33.3); Mean Corpuscular Volume 93.8 fL (83.0-100.0); Mean Platelet Volume 10.2 fL (9.4-12.4); Monocytes % 8.4 %; Neutrophils # 8.5 K/mcL (1.6-8.9); Platelet Count 225 K/mcL (140-400); Red Blood Count 3.57 M/mcL (4.19-5.50); Red Cell Distribution Width 13.9 % (11.5-14.5); Segmented Neutrophils % 73.6 %
[2017-09-15 05:34] LABS: Alanine Aminotransferase 148 Units/L (7-52); Alkaline Phosphatase 69 Units/L (34-104); Aspartate Amino Transferase 153 Units/L (13-39); BUN/Creatinine Ratio 15 (6-26); Bilirubin,Total 0.8 mg/dL (0.3-1.0); Blood Urea Nitrogen 16 mg/dL (8-23); Calcium 8.2 mg/dL (8.6-10.3); Carbon Dioxide 25 mEq/L (23-29); Chloride 105 mEq/L (98-107); Globulin 3.1 g/dL (2.4-3.5); Glucose 126 mg/dL (70-105); Osmolality,Calculated 285 (280-300); Potassium 3.8 mEq/L (3.5-5.1); Sodium 136 mEq/L (136-145); Total Protein 6.1 g/dL (6.4-8.9); eGFR For African Americans > 60 (> 60); eGFR For Non-African Americans > 60 (> 60)
[2017-09-15] MEDS: *HR* Heparin 5,000 UNIT/ML VIAL SQ SCH ×2 (05:44→17:16)
[2017-09-15] MEDS: Insulin LISPRO 300 UNITS/3 ML VIAL SQ SCH ×4 (07:30→21:28)
[2017-09-15] MEDS: Aspirin Enteric Coated 81 MG Tablet PO SCH (07:32)
--- NOTE | 2017-09-15 14:16 | Podiatry Progress Note ---
Date of Encounter: 09/15/17 Time of Encounter: 12:40 - Assessment and Plan (1) Chronic ulcer of left foot with fat layer exposed Current Visit: No Status: Acute (2) Diabetic foot ulcer Current Visit: Yes Status: Acute Qualifiers: Diabetic foot ulcer location: unspecified part of foot Diabetes mellitus type: due to underlying condition Laterality: left Non-pressure ulcer stage : with other severity Qualified Code(s): E08.621 - Diabetes mellitus due to underlying condition with foot ulcer; L97.528 - Non-pressure chronic ulcer of other part of left foot with other specified severity (3) Osteomyelitis of ankle and foot Current Visit: Yes Status: Acute S/p left partial 1st ray amputation, left soft tissue rearrangement, right 3rd digit amputation at the level of the interphalangeal joint for left foot osteomyelitis, right 3rd toe osteomyelitis, chronic ulcer Dressing changed at bedside, incision line healing uneventfully to the right foot 3rd digit. Incision line to the left foot is black, skin flap is purple. WBC: 11.5 Microbiology 09/12/17 17:45 Left Foot Wound Culture - Final Citrobacter youngae 09/11/17 15:27 Left Foot Wound Culture - Final Citrobacter freundii Intraop culture: prelim- GNR Plan: Right foot is healing uneventfully. Left foot flap is dusky with black wound edges to the incision lines. Dr. Ríos made aware and at this time we will continue to watch the area on the left foot. Keep dressings intact. Remain non weight bearing to the left foot, protective weight bearing to the right foot. Recommend Infectious Disease consult for antibiotic therapy. Subjective Interval history: Patient is s/p left partial 1st ray amputation, left soft tissue rearrangement, right 3rd digit amputation at the level of the interphalangeal joint for left foot osteomyelitis, right 3rd toe osteomyelitis, chronic ulcer on 09/12/[address] Ríos. Patient is lying in bed with family at bedside. Patient denies pain to the right foot, stats left foot has a little bit of pain. No c/o fever, chills , cp, sob or flu like symptoms. Objective - Vital Signs Vital Signs: Vital Signs Temp Pulse Resp BP Pulse Ox 09/15/17 14:10 99.2 F 75 16 132/72 99 09/15/17 08:34 98.8 F 71 16 147/72 97 09/15/17 00:51 98.9 F 60 16 129/72 96 09/14/17 20:51 100.5 F H 72 16 128/60 96 09/14/17 15:29 99.8 F H 80 16 118/57 98 Intake and Output 09/14/17 09/15/17 09/15/17 23:59 07:59 15:59 Intake Total 450 / 450 580 / 580 Balance 450 / 450 580 / 580 Intake: IV Fluids 450 / 450 100 / 100 Zosyn 3.375 GM In 0.9 % Sodium 200 / 200 100 / 100 Chloride (Mini-Bag +) 100 ML @ 25 mls/hr IVPB Q8HR [facility] Rx#: [id number] Vancocin 1,250 MG In 0.9 % 250 / 250 Sodium Chloride 250 ML @ 166.67 mls/hr IVPB Q24H [facility] Rx#: [id number] Oral 480 / 480 Other: Meal Lunch Percent of Meal Consumed 100% # Voids 1 1 Weight 71.9 kg 71.6 kg Blood Glucose* 128 201 Patient Weight 09/15/17 23:59 Weight 71.6 kg - Exam Exam: Podiatry General Exam: General appearance: alert awake oriented X 3. Calm and pleasant, no acute distress.. Vascular: Edema graded at 1+/4, Skin Temperature warm, No calf pain with manual compression. capillary refill time is immediate to digits of toes of right foot. Neurologic: Sensation intact with light touch to foot. . Postop Exam: S/P Right foot: Sutures intact to incision line, no signs of dehiscence, light periwound erythema. No streaking, no open area, no drainage, no odor. Minimal edema. Left foot: Sutures intact to incision line, skin flap is is purple wound edges are black, with periwound erythema, no pus, no odor, no active drainage. no streaking, no lymphangitis. - Lab Result Diagrams: 09/15/17 04:53 09/15/17 04:53 Labs: Abnormal lab results WBC 11.5 K/mcL (4.3-11.1) H 09/15/17 04:53 RBC 3.57 M/mcL (4.19-5.50) L 09/15/17 04:53 Hgb 10.9 g/dL (12.9-16.9) L 09/15/17 04:53 Hct 33.5 % (37.5-50.1) L 09/15/17 04:53 PT 14.4 Seconds (9.4-12.1) H 09/11/17 10:14 Glucose 126 mg/dL (70-105) H 09/15/17 04:53 POC Glucose 130 mg/dL (70-99) H 09/15/17 08:01 Hemoglobin A1c 6.6 % (-5.6) H 09/12/17 00:55 Calcium 8.2 mg/dL (8.6-10.3) L 09/15/17 04:53 AST 153 Units/L (13-39) H 09/15/17 04:53 ALT 148 Units/L (7-52) H 09/15/17 04:53 Serum Total Protein 6.1 g/dL (6.4-8.9) L 09/15/17 04:53 Albumin 3.0 g/dL (3.5-5.7) L 09/15/17 04:53 Albumin/Globulin Ratio 1.0 (1.1-2.2) L 09/15/17 04:53 HDL Cholesterol 22 mg/dL (40-59) L 09/12/17 00:55 Ur Specific [place] > 1.030 (1.010-1.025) H 09/11/17 16:33 Urine Protein 30 mg/dL (Neg-Trace) H 09/11/17 16:33 Urine Glucose (UA) 250 mg/dL (Normal) H 09/11/17 16:33 Ur Squamous Epith Cells Many per lpf (None-Few) H 09/11/17 16:33 Microbiology, Last 48 Hours 09/12/17 17:45 Anaerobic Culture - Preliminary Left Foot At this time, no anaerobic growth is present. The culture will be finalized after 5 days of incubation. 09/12/17 17:45 Surgical Biopsy Culture - Preliminary Left Foot Gram Negative Terrance 09/12/17 17:45 Wound Culture - Final Left Foot Citrobacter youngae Consult Discharge Plan - Plan Referrals: Brock Ridley DO [Primary Care Provider] -
[2017-09-15] MEDS: *HR* OxyCODONE/APAP 5/325 TABLET PO PRN (14:43)
--- NOTE | 2017-09-15 14:54 | Electrocardiograph Report ---
[address] [address] Test Date: 2017-09-13 Pat Name: Saad Cano Department: 115 Room: 3A Gender: M Student Support Counselor: : 1935 Requested By: Robny Manning Order Number: [id number] Reading MD: Fran Gutierrez Measurements Intervals [place] Rate: 94 P: 103 TN: 271 QRS: 41 QRSD: 94 T: -11 QT: 353 QTc: 404 Interpretive Statements SINUS RHYTHM WITH FIRST DEGREE AV BLOCK Electronically Signed On 09-15-2017 14:52:09 EDT by Fran Gutierrez
[2017-09-16] MEDS: Piperacillin/Tazobactam 3.375 GM in 0.9 % Sodium Chloride Mini Bag 100 ML IVPB SCH ×2 (01:46→07:44)
--- NOTE | 2017-09-16 04:30 | Internal Med Progress Note ---
Date of Encounter: 09/15/17 Time of Encounter: 19:00 - Assessment and plan (1) Type 2 diabetes mellitus with foot ulcer Current Visit: Yes Status: Acute Qualifiers: Diabetes mellitus record label internship insulin use: without record label internship use Qualified Code(s): E11.621 - Type 2 diabetes mellitus with foot ulcer; L97.509 - Non- pressure chronic ulcer of other part of unspecified foot with unspecified severity (2) Osteomyelitis of ankle and foot Current Visit: Yes Status: Acute (3) CAD (coronary artery disease) Current Visit: Yes Status: Chronic Qualifiers: Coronary Disease-Associated Artery/Lesion type: unspecified vessel or lesion type [place] vs. transplanted heart: [place] heart Associated angina: angina presence unspecified Qualified Code(s): I25.10 - Atherosclerotic heart disease of [place] coronary artery without angina pectoris (4) HTN (hypertension) Current Visit: Yes Status: Chronic Qualifiers: Hypertension type: essential hypertension Qualified Code(s): I10 - Essential (primary) hypertension - Time Spent With Patient Total time spent is greater than 50% in coordination of care (as documented) at patient's floor/unit and/or counseling patient: 25 - 35 minutes - Subjective Interval history: .. The patient is very demented. He knows his first name. Otherwise, he is disoriented. He had surgery on his left foot and right third digit amputation on September 12. No distress is seen. OBJECTIVE: .. Skin: Free of rash and discoloration. There is a surgical dressing applied to his left foot and the distal portion of her right foot. ENMT: Oral/pharyngeal mucosa is normal in appearance. Eyes: Sclera is white. There is no discharge from eyes. Respiratory: Normal breath sounds; no crackles or wheezes. CV: Heart is regular; no gallop or murmur. GI: Abdomen is soft and not tender. There is no palpable mass or visceromegaly. Neuro: There is no focal deficits. ASSESSMENT AND PLAN: .. Type 2 diabetes mellitus with diabetic foot ulcer, left foot. Amputated right third digit. Has developed osteomyelitis. He is on IV vancomycin and IV Zosyn. We will continue with when necessary Humalog. He underwent a left partial first ray amputation, left soft tissue rearrangement and right third digit amputation at the level of the interphalangeal joint. See notes from podiatry. Coronary artery disease. Stable. Will provide him supportive treatment after the surgery. Hypertension. Under control. We will continue when necessary IV hydralazine. Dementia. We will continue supportive treatment. Disposition. The patient needs ECF to continue antibiotics and wound care. - Constitutional Vitals: Temp Pulse Resp BP Pulse Ox 99.6 F 61 18 109/50 97 09/16/17 02:00 09/16/17 02:00 09/16/17 02:00 09/16/17 02:00 09/16/17 02:00 General appearance: Present: cooperative, A&O X 2, pleasant, no acute distress, answers questions appropriately Internal Medicine: Result - Labs CBC & Chem 7: 09/15/17 04:53 09/15/17 04:53 Labs: Short CBC 09/15/17 Range/Units 04:53 WBC 11.5 H (4.3-11.1) K/mcL Hgb 10.9 L (12.9-16.9) g/dL Hct 33.5 L (37.5-50.1) % Plt Count 225 (140-400) K/mcL Neutrophils # 8.5 (1.6-8.9) K/mcL BMP 09/15/17 04:53 Sodium 136 Potassium 3.8 Chloride 105 Carbon Dioxide 25 BUN 16 Creatinine 1.05 Glucose 126 H Calcium 8.2 L Liver Function 09/15/17 Range/Units 04:53 Total Bilirubin 0.8 (0.3-1.0) mg/dL AST 153 H (13-39) Units/L ALT 148 H (7-52) Units/L Alkaline Phosphatase 69 (34-104) Units/L Albumin 3.0 L (3.5-5.7) g/dL - ABG Interpretation ABG results: PT/INR, D-dimer PT 14.4 Seconds (9.4-12.1) H 09/11/17 10:14 Consult Discharge Plan - Plan Referrals: Brock Ridley DO [Primary Care Provider] -
[2017-09-16] MEDS: *HR* Heparin 5,000 UNIT/ML VIAL SQ SCH ×2 (05:35→17:45)
[2017-09-16 07:18] LABS: Basophils # 0.1 K/mcL (0.0-0.2); Basophils % 0.5 %; Eosinophils # 0.3 K/mcL (0.0-0.6); Eosinophils % 3.3 %; Hematocrit 34.2 % (37.5-50.1); Immature Granulocytes % 0.5 % (0-4); Lymphocytes # 1.7 K/mcL (0.6-4.6); Mean Corpuscular HGB Conc 32.2 g/dL (31.6-35.5); Mean Corpuscular Hemoglobin 30.8 pg (28.0-33.3); Mean Corpuscular Volume 95.8 fL (83.0-100.0); Mean Platelet Volume 10.5 fL (9.4-12.4); Monocytes # 0.7 K/mcL (0.0-1.3); Monocytes % 7.7 %; Neutrophils # 6.3 K/mcL (1.6-8.9); Platelet Count 247 K/mcL (140-400); Red Blood Count 3.57 M/mcL (4.19-5.50); Red Cell Distribution Width 13.9 % (11.5-14.5)
--- NOTE | 2017-09-16 07:28 | Electrocardiograph Report ---
[place] [address] Test Date: 2017-09-13 Pat Name: Saad Cano Department: 115 Room: 3A63 Gender: M Transportation Planning Engineer: : 1935 Requested By: Jose M Nava Order Number: [id number] Reading MD: Fran Gutierrez Measurements Intervals [place] Rate: 94 P: 93 [place]: 270 QRS: 39 QRSD: 94 T: 11 QT: 351 QTc: 403 Interpretive Statements SINUS RHYTHM WITH FIRST DEGREE AV BLOCK Electronically Signed On 09-16-2017 7:26:16 EDT by Fran Gutierrez
[2017-09-16 07:43] LABS: Alanine Aminotransferase 309 Units/L (7-52); Albumin 2.9 g/dL (3.5-5.7); Alkaline Phosphatase 82 Units/L (34-104); Aspartate Amino Transferase 285 Units/L (13-39); BUN/Creatinine Ratio 15 (6-26); Bilirubin,Total 0.7 mg/dL (0.3-1.0); Blood Urea Nitrogen 16 mg/dL (8-23); Calcium 8.1 mg/dL (8.6-10.3); Carbon Dioxide 26 mEq/L (23-29); Chloride 105 mEq/L (98-107); Glucose 139 mg/dL (70-105); Osmolality,Calculated 285 (280-300); Potassium 3.9 mEq/L (3.5-5.1); Sodium 136 mEq/L (136-145); Total Protein 5.9 g/dL (6.4-8.9); eGFR For African Americans > 60 (> 60); eGFR For Non-African Americans > 60 (> 60)
[2017-09-16] MEDS: Aspirin Enteric Coated 81 MG Tablet PO SCH (07:45)
[2017-09-16] MEDS: Insulin LISPRO 300 UNITS/3 ML VIAL SQ SCH ×5 (07:49→22:12)
--- NOTE | 2017-09-16 12:35 | Podiatry Progress Note ---
Date of Encounter: 09/16/17 Time of Encounter: 12:10 - Assessment and Plan (1) Type 2 diabetes mellitus with foot ulcer Current Visit: Yes Status: Acute Qualifiers: Diabetes mellitus terminal make up operator insulin use: without terminal make up operator use Qualified Code(s): E11.621 - Type 2 diabetes mellitus with foot ulcer; L97.509 - Non- pressure chronic ulcer of other part of unspecified foot with unspecified severity (2) Osteomyelitis of ankle and foot Current Visit: Yes Status: Acute discussed patient with Dr. Schumacher, condition not amenable to vascular intervention. would ultimately require a leg amputation on the left. discussed with family bedside when I returned later in the afternoon to check on the patient. discussed condition of left and right foot. right foot toe amputation site is viable. all questions answered. antibiotics per infectious disease. dressing change and nursing facility will be with adaptic, 4x4 gauze, abd pad, kerlix daily. patient to remain non-wb to the left LE and basically bed bound. will need ECF placement due to his mental condition. Subjective Interval history: went to see patient bedside. family had told SPLITTER OPERATOR they would be there between 12- 1pm today. no family members are bedside at the time of the encounter. patient is s/p right 3rd digit amputation and left partial 1st ray amputation with skin flap. Objective - Vital Signs Vital Signs: Vital Signs Temp Pulse Resp BP Pulse Ox 09/16/17 11:50 98.7 F 68 15 110/60 96 09/16/17 09:35 98.7 F 70 19 117/67 97 09/16/17 05:25 98.0 F 60 18 124/66 97 09/16/17 02:00 99.6 F 61 18 109/50 97 09/15/17 22:00 99.0 F 67 18 133/66 96 09/15/17 18:48 98.2 F 68 18 135/65 99 09/15/17 14:10 99.2 F 75 16 132/72 99 Intake and Output 09/15/17 09/16/17 09/16/17 23:59 07:59 15:59 Intake Total 590 / 590 100 / 100 100 / 100 Output Total 700 / 700 275 / 275 0 / 0 Balance -110 / -110 -175 / -175 100 / 100 Intake: IV Fluids 350 / 350 100 / 100 100 / 100 Zosyn 3.375 GM In 0.9 % Sodium 100 / 100 100 / 100 100 / 100 Chloride (Mini-Bag +) 100 ML @ 25 mls/hr IVPB Q8HR [facility] Rx#: [id number] Vancocin 1,250 MG In 0.9 % 250 / 250 Sodium Chloride 250 ML @ 166.67 mls/hr IVPB Q24H [facility] Rx#: [id number] Oral 240 / 240 0 / 0 Output: Urine 700 / 700 275 / 275 0 / 0 Other: Meal Dinner Breakfast Percent of Meal Consumed 60% 50% Stool Size Moderate Stool Consistency loose Stool Color Brown # Voids 1 Blood Glucose* 218 145 156 - Exam Exam: well developed and nourished male in no acute distress right 3rd digit amputation site has no necrosis. warm to touch. skin edges coapting. sutures intact. left foot shows necrosis of skin flap. no ascending erythema. skin adjacent to skin flap is warm to touch, skin flap area is cooler to touch. - Lab Result Diagrams: 09/16/17 06:26 09/16/17 06:26 Labs: Abnormal lab results RBC 3.57 M/mcL (4.19-5.50) L 09/16/17 06:26 Hgb 11.0 g/dL (12.9-16.9) L 09/16/17 06:26 Hct 34.2 % (37.5-50.1) L 09/16/17 06:26 PT 14.4 Seconds (9.4-12.1) H 09/11/17 10:14 Glucose 139 mg/dL (70-105) H 09/16/17 06:26 POC Glucose 218 mg/dL (70-99) H 09/15/17 17:20 Hemoglobin A1c 6.6 % (-5.6) H 09/12/17 00:55 Calcium 8.1 mg/dL (8.6-10.3) L 09/16/17 06:26 AST 285 Units/L (13-39) H 09/16/17 06:26 ALT 309 Units/L (7-52) H 09/16/17 06:26 Serum Total Protein 5.9 g/dL (6.4-8.9) L 09/16/17 06:26 Albumin 2.9 g/dL (3.5-5.7) L 09/16/17 06:26 Albumin/Globulin Ratio 1.0 (1.1-2.2) L 09/16/17 06:26 HDL Cholesterol 22 mg/dL (40-59) L 09/12/17 00:55 Ur Specific [place] > 1.030 (1.010-1.025) H 09/11/17 16:33 Urine Protein 30 mg/dL (Neg-Trace) H 09/11/17 16:33 Urine Glucose (UA) 250 mg/dL (Normal) H 09/11/17 16:33 Ur Squamous Epith Cells Many per lpf (None-Few) H 09/11/17 16:33 Microbiology, Last 48 Hours 09/12/17 17:45 Surgical Biopsy Culture - Final Left Foot Citrobacter freundii 09/12/17 17:45 Anaerobic Culture - Preliminary Left Foot At this time, no anaerobic growth is present. The culture will be finalized after 5 days of incubation. 09/12/17 17:45 Wound Culture - Final Left Foot Citrobacter youngae Consult Discharge Plan - Plan Referrals: Brock Ridley DO [Primary Care Provider] -
[2017-09-16] MEDS ORDERED: *HR* OxyCODONE Immed Rel 5 MG TABLET PO PRN (14:11)
--- NOTE | 2017-09-16 14:37 | Infectious Disease Consult ---
Date of Encounter: 09/16/17 Time of Encounter: 14:26 Assessment and Plan (1) Sepsis Status: Acute Assessment and plan: The patient had two SIRS criteria. Likely secondary to osteomyelitis. Improved. WBC has normalized. He has been afebrile. Blood cultures drawn 09/11/17 are negative x 2 sets. Qualifiers: Sepsis type: sepsis due to unspecified organism Qualified Code(s): A41.9 - Sepsis, unspecified organism (2) Foot osteomyelitis, left Status: Acute Assessment and plan: Location: Left foot, 1st phalange and metatarsal #1. Causative organism: Citrobacter freundii and Citrobacter youngae. Likely secondary to infected DFU. Left foot Xray showed no definite osteomyelitis and minimal soft tissue gas. MRI of the left foot showed osteomyelitis of the 1st metatarsal head and shaft, 1st proximal phalange base and shaft, and hallux sesamoids as well as 2nd metatarsal head early osteomyelitis vs. reactive osteitis. It also showed soft tissue gas overlying the 1st and 2nd metatarsal head. Podiatry consulted and following. Status post left partial 1st ray amputation and soft tissue rearrangement and right foot 3rd toe amputation at the interphalangeal joint. Operative note reviewed. Pus noted in the right foot third toe and bone sent for pathology. Left foot sesamoid bones were sent for culture and are positive for Citrobacter. The bone that was directly beneath the ulceration and the bone of the first MTP joint was noted to be dark in appearance and devitalized. Wound culture was positive for Citrobacter as well. Wound care and activity restrictions per the podiatry team. Check ESR and CRP. Discontinue Vancomycin and Zosyn. Start Cefepime 2 grams IV Q12H. Duration of treatment depends on the clinical picture. We will tentatively plan on 2 weeks of IV antibiotics and follow the patient's labs and how he does clinically. The patient has known PVD and is diabetic, which puts him at risk for delayed wound healing and re-infection. I had a long discussion with the patient and his family regarding the risks, benefits, and alternatives to IV antibiotics and they agree to proceed. Monitor renal function and dose-adjust antibiotics. Consult VAT for IV line placement. Will need weekly CBC, BUN/Cr, ESR, CRP. Will need weekly IV care. Follow up with ID 2 weeks post-discharge. Qualifiers: Osteomyelitis type: acute hematogenous Qualified Code(s): M86.072 - Acute hematogenous osteomyelitis, left ankle and foot (3) Diabetic foot ulcer Status: Acute Assessment and plan: Location: Right foot third toe. Likely secondary to poor-fitting shoes. Podiatry consulted. Status post amputation of the right foot third toe at the IP joint. Pus noted intra-op. No cultures obtained. Pathology pending. Wound care and activity restrictions per the podiatry team. Continue antibiotics as above. Qualifiers: Diabetic foot ulcer location: unspecified part of foot Diabetes mellitus type: due to underlying condition Laterality: left Non-pressure ulcer stage : with other severity Qualified Code(s): E08.621 - Diabetes mellitus due to underlying condition with foot ulcer; L97.528 - Non-pressure chronic ulcer of other part of left foot with other specified severity (4) Elevated transaminase level Status: Acute Assessment and plan: AST and ALT trending up. Etiology unclear, but possibly medication-related. The family states he has been taking a lot of Tylenol recently. He also takes Zocor daily. Abdominal exam benign. Further workup and management per the primary team. (5) Type 2 diabetes mellitus with foot ulcer Status: Chronic Assessment and plan: Controlled. HgbA1C 6.6%. Recommend aggressive glucose monitoring and control to promote wound healing and prevent re-infection. Qualifiers: Diabetes mellitus nursing home insulin use: without buttermaker helper use Qualified Code(s): E11.621 - Type 2 diabetes mellitus with foot ulcer; L97.509 - Non- pressure chronic ulcer of other part of unspecified foot with unspecified severity (6) CAD (coronary artery disease) Status: Chronic Qualifiers: Coronary Disease-Associated Artery/Lesion type: unspecified vessel or lesion type [place] vs. transplanted heart: [place] heart Associated angina: angina presence unspecified Qualified Code(s): I25.10 - Atherosclerotic heart disease of [place] coronary artery without angina pectoris (7) Dementia Status: Chronic Qualifiers: Dementia type: unspecified type Dementia behavioral disturbance: without behavioral disturbance Qualified Code(s): F03.90 - Unspecified dementia without behavioral disturbance (8) HLD (hyperlipidemia) Status: Chronic Qualifiers: Hyperlipidemia type: pure hypercholesterolemia Qualified Code(s): E78.00 - Pure hypercholesterolemia, unspecified; E78.0 - Pure hypercholesterolemia (9) HTN (hypertension) Status: Chronic Qualifiers: Hypertension type: essential hypertension Qualified Code(s): I10 - Essential (primary) hypertension (10) Peripheral vascular disease Status: Acute Assessment and plan: Status post aortography with runoff bilaterally that showed right common femoral severe flow-limiting calcific and preocclusive disease as well as occlusion of the left posterior tibial, left anterior tibial, and left dorsalis pedis. Per Dr. Schumacher's note, no surgical option for revascularization of the LLE and open revascularization recommended on an elective basis for preocclusive right common femoral artery stenosis. Infectious Disease HPI - Data of Consult Patient: new to practice Consult date: 09/16/17 Requesting Physician: TONY TORRES MD Primary Care Provider: Brock Ridley, Family Provider: Brock Ridley, - Consult Narrative Reason for consult: Osteomyelitis History of present illness: Mr. Cano is a 81 year old male with a past medical history of CAD status post CABG, Alzheimer's dementia, diabetes mellitus, hyperlipidemia, hypertension, and NV. The patient was admitted to the hospital September 11 for osteomyelitis. We are consulted September 16 for antibiotic recommendations for osteomyelitis. Briefly, the patient's A1-year-old male with past mental history as stated above. The patient's dementia somewhat precludes his ability to provide me with much information leading up to the events of his hospitalization, therefore , most of the information is obtained from medical record and his family who are at the bedside. Apparently, the patient has had a chronic nonhealing ulcer to the left side metatarsal #1 and right third toe since May. Family states they think poor fitting shoes are the cause. He had been seen in the wound care clinic multiple times and had recently had hard cast placed on both of his feet. He was seen on September 11 and had regression of the left foot wound and was advised to go to the ER for evaluation. Upon arrival, the patient was afebrile and hemodynamically stable. White blood cell count was normal. LFTs were mildly elevated with an AST of 54 nail T of 83. Urinalysis was negative. Superficial swab culture of the left foot wound was positive for Citrobacter freundii. Blood cultures are negative 2 sets. He had a left foot x-ray that was negative for definitive osteomyelitis and minimal soft tissue gas thought to likely be secondary to the left foot ulceration. He had a left foot MRI that showed osteomyelitis of the first metatarsal head and shaft, first proximal phalangeal base and shaft, and hallux sesamoid bones as well as second metatarsal head early osteal myelitis versus reactive osteitis and soft tissue gas between the first and second metatarsal heads. Patient was started on empiric IV antibiotics and admitted to the hospital for further evaluation. After admission, the patient spike a fever with Tmax 102.3. He had some mild leukocytosis which has resolved. He was evaluated by podiatry. He was noted to have a chronic nonhealing ulcer to the right foot third toe as well as the left foot submetatarsal #1 ulceration. He was taken to the OR on September 12 and underwent left partial first ray amputation, left soft tissue rearrangement, and right third digit amputation at the interphalangeal joint. Intraoperatively , pus was noted. Left sesamoind bone culture is positive for C. freundii and culture of the left foot ulcer is positive for C. youngae. His AST and ALT continue to trend up, but bilirubin and alk phos are normal. WBC has normalized today. He has been afebrile since 09/14/17. We've been asked to evaluate and make further recommendations. During my exam today, the patient and his family endorse the history as stated above. Per the patient, he was in his usual state of health when he was seen in wound care on the day of admission. Denies fevers, chills, or rigors. Denies headache, neck pain, weakness, or dizziness. Denies chest pain, shortness of breath, or cough. Denies nausea, vomiting, or diarrhea. Denies abdominal pain, urinary complaints or appetite changes. Reports minimal pain at the surgical site prior to surgery, none since surgery. Per family, no surrounding erythema, but the skin was "" when they took the dressing off in wound care. Denies any oral thrush or additional skin lesions. The patient lives at home with his . He is retired. Denies tobacco, alcohol , or illicit drug use. He denies recent travel. Denies animal exposure. CC: TONY TORRES MD Past Med Surg Social Fam HX - Past Medical History Attestation: Yes The following information was validated with the patient. Source: patient, old records reviewed, nursing notes reviewed Medical history: coronary artery disease, dementia, diabetes, hyperlipidemia, hypertension, myocardial infarction Psychiatric history: no psych history - Past Surgical History Surgical History: coronary bypass (CABG) - Social History Smoking Status: Former smoker Packs per day: 1 PPD - Reports quittin in 1979 Alcohol use: none Drug use: none - Family History Father Race: Family Member Ethnicity: Non- Living Status: Age at : 85 Cause of : CHF Hx Family Cardiac Disorders: Yes Hx Family Respiratory Disorders: No Hx Family Cancer: No Hx Family GI Disorders: No Hx Family Endocrine Disorder: No Hx Family Neuromuscular Disorders: No Hx Family Neurologic Disorders: No Hx Family HEENT Disorders: No Hx Family Autoimmune Disorders: No Mother Race: Family Member Ethnicity: Non- Living Status: Age at : 93 Cause of : CHF Hx Family Cardiac Disorders: Yes Hx Family Respiratory Disorders: No Hx Family Cancer: No Hx Family GI Disorders: No Hx Family Endocrine Disorder: No Hx Family Neuromuscular Disorders: No Hx Family Neurologic Disorders: No Hx Family HEENT Disorders: No Hx Family Autoimmune Disorders: No Brother History Unknown: Yes Living Status: Age at : 80 Cause of : Unknown Infectious Disease-CN:Meds Aspirin [Adult Aspirin Regimen] 81 mg PO DAILY 05/08/17 [History] Simvastatin [Zocor] 40 mg PO HS 05/08/17 [History] 3 Allergy/AdvReac Type Severity Reaction Status Date / Time metoprolol AdvReac Rash Verified 09/11/17 13:24 All systems: reviewed and no additional remarkable complaints except as stated Exam - Constitutional Vitals: Temp Pulse Resp BP Pulse Ox 98.7 F 68 15 110/60 96 09/16/17 11:50 09/16/17 11:50 09/16/17 11:50 09/16/17 11:50 09/16/17 11:50 General appearance: average body habitus, cooperative, no acute distress - Head Head exam: Present: atraumatic, normal inspection, normocephalic - Eye Eye exam: Present: EOMI, normal appearance, PERRL Pupils: Present: normal accommodation - ENT ENT exam: Present: mucous membranes moist - Neck Neck exam: Present: normal inspection - Respiratory Respiratory exam: Present: CTAB. Absent: rales, respiratory distress, rhonchi, wheezes - Cardiovascular Cardiovascular exam: Present: RRR, +S1, +S2 - GI/Abdominal GI/Abdominal exam: Present: normal bowel sounds, soft. Absent: distended, tenderness - Extremities Exam Extremities exam: Absent: joint swelling, pedal edema, tenderness - Expanded Lower Extremity Exam 1 - Amputation site without erythema, warmth, tenderness, or drainage. Sutures intact with wound edges well-approximated. 2 - Left foot post-op site necrotic and dusky with small amount of sanguinous drainage. Sutures intact. Wound edges well-approximated. - Neurological Exam Neurological exam: Present: alert, oriented X3, no focal deficits - Psychiatric Psychiatric exam: Present: normal affect, normal mood - Skin Skin exam: Present: dry, intact, normal color, warm Infectious Disease CN: Results - Labs CBC & Chem 7: 09/17/17 06:50 09/17/17 06:50 Cultures: Cultures 09/12/17 17:45 Surgical Biopsy Culture - Final Left Foot Citrobacter freundii 09/12/17 17:45 Anaerobic Culture - Preliminary Left Foot At this time, no anaerobic growth is present. The culture will be finalized after 5 days of incubation. 09/12/17 17:45 Wound Culture - Final Left Foot Citrobacter youngae 09/11/17 15:27 Wound Culture - Final Left Foot Citrobacter freundii 09/11/17 16:41 Blood Culture - Preliminary Peripheral Venipuncture Culture is incubating and being continuously monitored for growth. Final report to follow. 09/11/17 16:41 Blood Culture - Preliminary Peripheral Venipuncture Culture is incubating and being continuously monitored for growth. Final report to follow. Serology: Serology 09/11/17 Range/Units 16:33 Urine Color Yellow (Yellow) Urine Clarity Clear (Clear) Urine pH 5.5 (5.0-8.0) pH Units Ur Specific [place] > 1.030 H (1.010-1.025) Urine Protein 30 H (Neg-Trace) mg/dL Urine Glucose (UA) 250 H (Normal) mg/dL Urine Ketones Negative (Negative) mg/dL Urine Blood Negative (Negative) Urine Nitrite Negative (Negative) Urine Bilirubin Negative (Negative) Urine Urobilinogen Normal (Normal) mg/dL Ur Leukocyte Esterase Negative (Negative) Urine Microscopic RBC 0-3 (0-3) per hpf Urine Microscopic WBC 0-3 (0-3) per hpf Ur Squamous Epith Cells Many H (None-Few) per lpf Urine Bacteria None Seen (None-Few) per hpf Hyaline Casts None Seen (None-Few) per lpf Ur Culture Indicated? NO (NO) Consult Discharge Plan - Plan Referrals: Brock Ridley, DO [Primary Care Provider] - - Attending Attestation I examined this patient and my medical decision-making was reviewed with the Resident Physician. I agree with the documented findings, disposition and treatment plan as described except to the extent set forth below. This is an addendum to original report dictated by Jen Casey CNP. Please refer to Jen's note for full detail. Patient is a 81-year-old gentleman with past medical history mentioned below who also has severe peripheral artery disease per family. And has been seen by Dr. Schumacher. Apparently patient is not a candidate for any Surgical intervention. Patient is also diabetic and poorly controlled. And has coronary artery disease with history of CABG who is has a nonhealing ulcer on bilateral feet for 4 months. Patient has been followed by wound care. Patient was not doing any better clinically. Patient underwent MRI of the feet which showed osteomyelitis of the first metatarsal head and shaft first proximal phalangeal base and shaft anthelix sesamoid bones as well as second metatarsal head early osteomyelitis versus reactive osteitis. Patient was also febrile at sepsis. Patient was taken to surgery by Dr. Ríos where he underwent partial first ray amputation and right third digit amputation and the inter-phalangeal joint. Intra-Op cultures were sent and they grew Citrobacter freundii and Citrobacter youngae both with the same susceptibility pattern that are pansensitive with exception of Augmentin and cefazolin. Patient was started on vancomycin and Zosyn as evaluated the patient and make further recommendation. Assessment and plan: Sepsis Left foot osteomyelitis: First phalangeal and metatarsal causative organism Citrobacter status post left partial first ray amputation and soft tissue rearrangement and right foot third toe amputation and interphalangeal joint Patient's feet still have a lot of black discoloration. Any to speak with Dr. Ríos to see if there is necrotic tissue or doing feel that his can be enough blood supply for the wound even heel. Check baseline labs including ESR and CRP DC vancomycin and Zosyn *Cefepime with goal to treat with IV antibiotics for at least 2 weeks if not longer based on clinical improvement and inflammatory markers levels. Discussed at length with family was at bedside Monitor labs and for drug toxicity
--- NOTE | 2017-09-16 16:10 | Internal Med Progress Note ---
Date of Encounter: 09/16/17 Time of Encounter: 14:50 - Assessment and plan (1) Diabetic foot ulcer Current Visit: Yes Status: Acute Assessment and plan: s/p R 3rd toe ampputation, L 1st toe partial ray amputation c/s growing citrobacter species, resistant to augmentin and cefazolin on IV vanc/zosyn, can probably switch to another cephalosporin but will consult ID to determine which is the best agent with optimal bone penetration follow with podiatry follow up on path report LDSS for glycemic control for now Qualifiers: Diabetic foot ulcer location: unspecified part of foot Diabetes mellitus type: due to underlying condition Laterality: left Non-pressure ulcer stage : with other severity Qualified Code(s): E08.621 - Diabetes mellitus due to underlying condition with foot ulcer; L97.528 - Non-pressure chronic ulcer of other part of left foot with other specified severity (2) Elevated transaminase level Current Visit: Yes Status: Acute Assessment and plan: trending up, ?med related (zocor, tylenol, zosyn) d/c the above meds, switch percocet to oxycodone monitor (3) CAD (coronary artery disease) Current Visit: Yes Status: Chronic Assessment and plan: stable, continue home meds Qualifiers: Coronary Disease-Associated Artery/Lesion type: unspecified vessel or lesion type [place] vs. transplanted heart: [place] heart Associated angina: angina presence unspecified Qualified Code(s): I25.10 - Atherosclerotic heart disease of [place] coronary artery without angina pectoris (4) HLD (hyperlipidemia) Current Visit: Yes Status: Chronic Assessment and plan: zocor discontinued in view of transaminitis Qualifiers: Hyperlipidemia type: pure hypercholesterolemia Qualified Code(s): E78.00 - Pure hypercholesterolemia, unspecified; E78.0 - Pure hypercholesterolemia (5) HTN (hypertension) Current Visit: Yes Status: Chronic Assessment and plan: monitor off meds Qualifiers: Hypertension type: essential hypertension Qualified Code(s): I10 - Essential (primary) hypertension (6) Dementia Current Visit: Yes Status: Chronic Assessment and plan: stable Qualifiers: Dementia type: unspecified type Dementia behavioral disturbance: without behavioral disturbance Qualified Code(s): F03.90 - Unspecified dementia without behavioral disturbance (7) DVT prophylaxis Current Visit: Yes Status: Acute Assessment and plan: sq heparin - Time Spent With Patient Total time spent is greater than 50% in coordination of care (as documented) at patient's floor/unit and/or counseling patient: - Subjective Interval history: Denies any significant pain or discharges from the op site. No abdominal pain, jaundice, fever/chills. - Constitutional Vitals: Temp Pulse Resp BP Pulse Ox 98.5 F 67 18 138/71 95 09/16/17 15:55 09/16/17 15:55 09/16/17 15:55 09/16/17 15:55 09/16/17 15:55 General appearance: Present: cooperative, A&O X 2, pleasant, no acute distress, answers questions appropriately Exam: General: Alert and oriented HEENT:EOM, pupils equal, round, and reactive. No jaundice Cardiovascular:Normal S1 & S2, no murmurs or gallops. No JVD. Pulse regular. Lungs:Normal breath sounds, no wheezes or crackles. Abdomen:Soft, non-tender, no rigidity. Extremities: Toe dressing dry and clean bilaterally Neurological:Normal cognition and motor skills. Skin:Normal color, no rash, no lesions. Pulses:Carotid and radial pulses normal +2. Rest of the physical exam is non-contributory Internal Medicine: Result - Labs CBC & Chem 7: 09/16/17 06:26 09/16/17 06:26 Labs: Short CBC 09/16/17 Range/Units 06:26 WBC 9.1 (4.3-11.1) K/mcL Hgb 11.0 L (12.9-16.9) g/dL Hct 34.2 L (37.5-50.1) % Plt Count 247 (140-400) K/mcL Neutrophils # 6.3 (1.6-8.9) K/mcL BMP 09/16/17 06:26 Sodium 136 Potassium 3.9 Chloride 105 Carbon Dioxide 26 BUN 16 Creatinine 1.08 Glucose 139 H Calcium 8.1 L Liver Function 09/16/17 Range/Units 06:26 Total Bilirubin 0.7 (0.3-1.0) mg/dL AST 285 H (13-39) Units/L ALT 309 H (7-52) Units/L Alkaline Phosphatase 82 (34-104) Units/L Albumin 2.9 L (3.5-5.7) g/dL - ABG Interpretation ABG results: PT/INR, D-dimer PT 14.4 Seconds (9.4-12.1) H 09/11/17 10:14 Consult Discharge Plan - Plan Referrals: Brock Ridley DO [Primary Care Provider] -
[2017-09-16] MEDS: Cefepime HCl 2,000 MG in 0.9 % Sodium Chloride Mini Bag 100 ML IVPB SCH (16:29)
[2017-09-16] MEDS ORDERED: Aminoglycoside Consult 1 EACH MC ONE (16:33)
[2017-09-17] MEDS: *HR* Heparin 5,000 UNIT/ML VIAL SQ SCH ×2 (06:41→17:27)
[2017-09-17] MEDS: Cefepime HCl 2,000 MG in 0.9 % Sodium Chloride Mini Bag 100 ML IVPB SCH ×2 (06:42→17:27)
[2017-09-17 07:11] LABS: Basophils # 0.1 K/mcL (0.0-0.2); Basophils % 0.9 %; Eosinophils # 0.3 K/mcL (0.0-0.6); Eosinophils % 3.2 %; Hematocrit 36.6 % (37.5-50.1); Hemoglobin 11.9 g/dL (12.9-16.9); Immature Granulocytes % 1.2 % (0-4); Lymphocytes # 1.9 K/mcL (0.6-4.6); Mean Corpuscular HGB Conc 32.5 g/dL (31.6-35.5); Mean Corpuscular Hemoglobin 31.2 pg (28.0-33.3); Mean Corpuscular Volume 95.8 fL (83.0-100.0); Mean Platelet Volume 10.2 fL (9.4-12.4); Monocytes # 0.7 K/mcL (0.0-1.3); Monocytes % 8.1 %; Neutrophils # 5.6 K/mcL (1.6-8.9); Platelet Count 255 K/mcL (140-400); Red Blood Count 3.82 M/mcL (4.19-5.50); Red Cell Distribution Width 13.9 % (11.5-14.5); Segmented Neutrophils % 64.6 %
[2017-09-17 07:22] LABS: Alanine Aminotransferase 253 Units/L (7-52); Albumin 2.9 g/dL (3.5-5.7); Albumin/Globulin Ratio 0.8 (1.1-2.2); Alkaline Phosphatase 81 Units/L (34-104); Aspartate Amino Transferase 159 Units/L (13-39); BUN/Creatinine Ratio 13 (6-26); Bilirubin,Total 0.5 mg/dL (0.3-1.0); Blood Urea Nitrogen 13 mg/dL (8-23); Calcium 8.1 mg/dL (8.6-10.3); Carbon Dioxide 25 mEq/L (23-29); Chloride 106 mEq/L (98-107); Globulin 3.5 g/dL (2.4-3.5); Glucose 136 mg/dL (70-105); Osmolality,Calculated 284 (280-300); Potassium 3.7 mEq/L (3.5-5.1); Sodium 136 mEq/L (136-145); Total Protein 6.4 g/dL (6.4-8.9); eGFR For African Americans > 60 (> 60); eGFR For Non-African Americans > 60 (> 60)
[2017-09-17] MEDS: Insulin LISPRO 300 UNITS/3 ML VIAL SQ SCH ×3 (08:43→17:33)
[2017-09-17] MEDS: Aspirin Enteric Coated 81 MG Tablet PO SCH (08:43)
--- NOTE | 2017-09-17 14:30 | Infectious Disease Progress No ---
Date of Encounter: 09/17/17 Time of Encounter: 10:45 - Subjective Interval history: Patient seen and examined. No acute events noted overnight. Patient resting quietly in bed. States overall feels well. Denies fevers, chills, or rigors. Denies chest pain, shortness of breath, or cough. Denies nausea, vomiting, or diarrhea. Denies abdominal pain, urinary complaints, or appetite changes. Denies pain at the surgical sites. Denies oral thrush or skin lesions. Infect Dis PN-Objective Data - Labs CBC & Chem 7: 09/18/17 05:16 09/18/17 05:16 Labs: Laboratory Results - last 24 hr 09/15/17 09/16/17 09/16/17 22:21 07:47 11:30 WBC RBC Hgb Hct MCV MCH MCHC RDW Plt Count MPV Immature Gran % Seg Neutrophils % Lymphocytes % Monocytes % Eosinophils % Basophils % Neutrophils # Lymphocytes # Monocytes # Eosinophils # Basophils # ESR Sodium Potassium Chloride Carbon Dioxide BUN Creatinine Est GFR ( Amer) Est GFR (Non-Af Amer) BUN/Creatinine Ratio Glucose POC Glucose 149 H 145 H 156 H Calculated Osmolality Calcium Total Bilirubin AST ALT Alkaline Phosphatase C-Reactive Protein Serum Total Protein Albumin Globulin Albumin/Globulin Ratio 09/16/17 09/16/17 09/17/17 16:26 20:12 06:50 WBC RBC Hgb Hct MCV MCH MCHC RDW Plt Count MPV Immature Gran % Seg Neutrophils % Lymphocytes % Monocytes % Eosinophils % Basophils % Neutrophils # Lymphocytes # Monocytes # Eosinophils # Basophils # ESR 104 H Sodium Potassium Chloride Carbon Dioxide BUN Creatinine Est GFR ( Amer) Est GFR (Non-Af Amer) BUN/Creatinine Ratio Glucose POC Glucose 198 H 165 H Calculated Osmolality Calcium Total Bilirubin AST ALT Alkaline Phosphatase C-Reactive Protein Serum Total Protein Albumin Globulin Albumin/Globulin Ratio 09/17/17 09/17/17 09/17/17 06:50 06:50 06:50 WBC 8.7 RBC 3.82 L Hgb 11.9 L Hct 36.6 L MCV 95.8 MCH 31.2 MCHC 32.5 RDW 13.9 Plt Count 255 MPV 10.2 Immature Gran % 1.2 Seg Neutrophils % 64.6 Lymphocytes % 22.0 Monocytes % 8.1 Eosinophils % 3.2 Basophils % 0.9 Neutrophils # 5.6 Lymphocytes # 1.9 Monocytes # 0.7 Eosinophils # 0.3 Basophils # 0.1 ESR Sodium 136 Potassium 3.7 Chloride 106 Carbon Dioxide 25 BUN 13 Creatinine 1.02 Est GFR ( Amer) > 60 Est GFR (Non-Af Amer) > 60 BUN/Creatinine Ratio 13 Glucose 136 H POC Glucose Calculated Osmolality 284 Calcium 8.1 L Total Bilirubin 0.5 AST 159 H ALT 253 H Alkaline Phosphatase 81 C-Reactive Protein 88 H Serum Total Protein 6.4 Albumin 2.9 L Globulin 3.5 Albumin/Globulin Ratio 0.8 L 09/17/17 09/17/17 08:37 11:20 WBC RBC Hgb Hct MCV MCH MCHC RDW Plt Count MPV Immature Gran % Seg Neutrophils % Lymphocytes % Monocytes % Eosinophils % Basophils % Neutrophils # Lymphocytes # Monocytes # Eosinophils # Basophils # ESR Sodium Potassium Chloride Carbon Dioxide BUN Creatinine Est GFR ( Amer) Est GFR (Non-Af Amer) BUN/Creatinine Ratio Glucose POC Glucose 156 H 171 H Calculated Osmolality Calcium Total Bilirubin AST ALT Alkaline Phosphatase C-Reactive Protein Serum Total Protein Albumin Globulin Albumin/Globulin Ratio Cultures: Cultures 09/11/17 16:41 Blood Culture - Final Peripheral Venipuncture No growth. Final report. 09/11/17 16:41 Blood Culture - Final Peripheral Venipuncture No growth. Final report. 09/12/17 17:45 Surgical Biopsy Culture - Final Left Foot Citrobacter freundii 09/12/17 17:45 Anaerobic Culture - Preliminary Left Foot At this time, no anaerobic growth is present. The culture will be finalized after 5 days of incubation. 09/12/17 17:45 Wound Culture - Final Left Foot Citrobacter youngae 09/11/17 15:27 Wound Culture - Final Left Foot Citrobacter freundii Serology 09/11/17 Range/Units 16:33 Urine Color Yellow (Yellow) Urine Clarity Clear (Clear) Urine pH 5.5 (5.0-8.0) pH Units Ur Specific [place] > 1.030 H (1.010-1.025) Urine Protein 30 H (Neg-Trace) mg/dL Urine Glucose (UA) 250 H (Normal) mg/dL Urine Ketones Negative (Negative) mg/dL Urine Blood Negative (Negative) Urine Nitrite Negative (Negative) Urine Bilirubin Negative (Negative) Urine Urobilinogen Normal (Normal) mg/dL Ur Leukocyte Esterase Negative (Negative) Urine Microscopic RBC 0-3 (0-3) per hpf Urine Microscopic WBC 0-3 (0-3) per hpf Ur Squamous Epith Cells Many H (None-Few) per lpf Urine Bacteria None Seen (None-Few) per hpf Hyaline Casts None Seen (None-Few) per lpf Ur Culture Indicated? NO (NO) Exam - Constitutional Vitals: Temp Pulse Resp BP Pulse Ox 98.5 F 61 16 124/61 98 09/17/17 11:31 09/17/17 11:31 09/17/17 11:31 09/17/17 11:31 09/17/17 11:31 General appearance: average body habitus, cooperative, no acute distress - Head Head exam: Present: atraumatic, normal inspection, normocephalic - Eye Eye exam: Present: EOMI, normal appearance, PERRL Pupils: Present: normal accommodation - ENT ENT exam: Present: mucous membranes moist - Neck Neck exam: Present: normal inspection - Respiratory Respiratory exam: Present: CTAB. Absent: rales, respiratory distress, rhonchi, wheezes - Cardiovascular Cardiovascular exam: Present: RRR, +S1, +S2 - GI/Abdominal GI/Abdominal exam: Present: normal bowel sounds, soft. Absent: distended, tenderness - Extremities Exam Additional comments: Bilateral foot dressings C/D/I. - Neurological Exam Neurological exam: Present: alert, oriented X3, no focal deficits - Psychiatric Psychiatric exam: Present: normal affect, normal mood - Skin Skin exam: Present: dry, intact, normal color, warm Consult Discharge Plan - Plan Instructions: Diabetic Foot Care (DC) Referrals: Brock Ridley DO [Primary Care Provider] - Prescriptions: Cefepime HCl/Dextrose, Iso-Osm [Cefepime 2 gm Injection] 2 gm IV Q12HR 12 Days # 24 unit - Attending Attestation I examined this patient and my medical decision-making was reviewed with the Resident Physician. I agree with the documented findings, disposition and treatment plan as described except to the extent set forth below.
--- NOTE | 2017-09-17 15:04 | Internal Med Progress Note ---
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 Follow with ID with weekly CBC, BUNCr, ESR, CRP. follow with podiatry LDSS for glycemic control for now Qualifiers: Diabetic foot ulcer location: unspecified part of foot Diabetes mellitus type: due to underlying condition Laterality: left Non-pressure ulcer stage : with other severity Qualified Code(s): E08.621 - Diabetes mellitus due to underlying condition with foot ulcer; L97.528 - Non-pressure chronic ulcer of other part of left foot with other specified severity (2) Elevated transaminase level Current Visit: Yes Status: Acute Assessment and plan: ?med related (zocor, tylenol, zosyn) d/c the above meds, switch percocet to oxycodone improving, continue to monitor (3) CAD (coronary artery disease) Current Visit: Yes Status: Chronic Assessment and plan: stable, continue home meds Qualifiers: Coronary Disease-Associated Artery/Lesion type: unspecified vessel or lesion type [place] vs. transplanted heart: [place] heart Associated angina: angina presence unspecified Qualified Code(s): I25.10 - Atherosclerotic heart disease of [place] coronary artery without angina pectoris (4) HLD (hyperlipidemia) Current Visit: Yes Status: Chronic Assessment and plan: zocor discontinued in view of transaminitis Qualifiers: Hyperlipidemia type: pure hypercholesterolemia Qualified Code(s): E78.00 - Pure hypercholesterolemia, unspecified; E78.0 - Pure hypercholesterolemia (5) HTN (hypertension) Current Visit: Yes Status: Chronic Assessment and plan: monitor off meds Qualifiers: Hypertension type: essential hypertension Qualified Code(s): I10 - Essential (primary) hypertension (6) Dementia Current Visit: Yes Status: Chronic Assessment and plan: stable Qualifiers: Dementia type: unspecified type Dementia behavioral disturbance: without behavioral disturbance Qualified Code(s): F03.90 - Unspecified dementia without behavioral disturbance (7) DVT prophylaxis Current Visit: Yes Status: Acute Assessment and plan: sq heparin - Time Spent With Patient Total time spent is greater than 50% in coordination of care (as documented) at patient's floor/unit and/or counseling patient: - Subjective Interval history: No new complaints, denies significant pain, N/V, diarrhea. Good appetite. His family members at bedside states that his A1c normalized on diet control, last A1c on chart is 6.6 on 09/12/17 - Constitutional Vitals: Temp Pulse Resp BP Pulse Ox 98.5 F 61 16 124/61 98 09/17/17 11:31 09/17/17 11:31 09/17/17 11:31 09/17/17 11:31 09/17/17 11:31 General appearance: Present: cooperative, A&O X 2, pleasant, no acute distress, answers questions appropriately Exam: General: Alert and oriented HEENT:EOM, pupils equal, round, and reactive. No jaundice Cardiovascular:Normal S1 & S2, no murmurs or gallops. No JVD. Pulse regular. Lungs:Normal breath sounds, no wheezes or crackles. Abdomen:Soft, non-tender, no rigidity. Extremities: Toe dressing dry and clean bilaterally Neurological:Normal cognition and motor skills. Skin:Normal color, no rash, no lesions. Pulses:Carotid and radial pulses normal +2. Rest of the physical exam is non-contributory Internal Medicine: Result - Labs CBC & Chem 7: 09/17/17 06:50 09/17/17 06:50 Labs: Short CBC 09/17/17 Range/Units 06:50 WBC 8.7 (4.3-11.1) K/mcL Hgb 11.9 L (12.9-16.9) g/dL Hct 36.6 L (37.5-50.1) % Plt Count 255 (140-400) K/mcL Neutrophils # 5.6 (1.6-8.9) K/mcL BMP 09/17/17 06:50 Sodium 136 Potassium 3.7 Chloride 106 Carbon Dioxide 25 BUN 13 Creatinine 1.02 Glucose 136 H Calcium 8.1 L Liver Function 09/17/17 Range/Units 06:50 Total Bilirubin 0.5 (0.3-1.0) mg/dL AST 159 H (13-39) Units/L ALT 253 H (7-52) Units/L Alkaline Phosphatase 81 (34-104) Units/L Albumin 2.9 L (3.5-5.7) g/dL - ABG Interpretation ABG results: PT/INR, D-dimer PT 14.4 Seconds (9.4-12.1) H 09/11/17 10:14 Consult Discharge Plan - Plan Referrals: Brock Ridley DO [Primary Care Provider] -
[2017-09-18 05:34] LABS: Basophils # 0.1 K/mcL (0.0-0.2); Basophils % 0.6 %; Eosinophils # 0.3 K/mcL (0.0-0.6); Eosinophils % 3.4 %; Hematocrit 35.1 % (37.5-50.1); Hemoglobin 11.7 g/dL (12.9-16.9); Immature Granulocytes % 1.1 % (0-4); Lymphocytes % 21.3 %; Mean Corpuscular HGB Conc 33.3 g/dL (31.6-35.5); Mean Corpuscular Hemoglobin 31.5 pg (28.0-33.3); Mean Corpuscular Volume 94.4 fL (83.0-100.0); Mean Platelet Volume 10.3 fL (9.4-12.4); Monocytes # 0.8 K/mcL (0.0-1.3); Monocytes % 8.6 %; Neutrophils # 6.2 K/mcL (1.6-8.9); Platelet Count 269 K/mcL (140-400); Red Blood Count 3.72 M/mcL (4.19-5.50); Red Cell Distribution Width 13.7 % (11.5-14.5)
[2017-09-18 05:55] LABS: Alanine Aminotransferase 223 Units/L (7-52); Albumin/Globulin Ratio 0.9 (1.1-2.2); Alkaline Phosphatase 80 Units/L (34-104); Aspartate Amino Transferase 128 Units/L (13-39); BUN/Creatinine Ratio 14 (6-26); Bilirubin,Total 0.6 mg/dL (0.3-1.0); Blood Urea Nitrogen 13 mg/dL (8-23); Calcium 8.3 mg/dL (8.6-10.3); Carbon Dioxide 24 mEq/L (23-29); Chloride 105 mEq/L (98-107); Globulin 3.4 g/dL (2.4-3.5); Glucose 137 mg/dL (70-105); Osmolality,Calculated 286 (280-300); Potassium 3.8 mEq/L (3.5-5.1); Sodium 137 mEq/L (136-145); Total Protein 6.4 g/dL (6.4-8.9); eGFR For African Americans > 60 (> 60); eGFR For Non-African Americans > 60 (> 60)
[2017-09-18] MEDS: Cefepime HCl 2,000 MG in 0.9 % Sodium Chloride Mini Bag 100 ML IVPB SCH (06:29)
[2017-09-18] MEDS: *HR* Heparin 5,000 UNIT/ML VIAL SQ SCH (06:29)
[2017-09-18 07:59] VITALS: BP 157/74
[2017-09-18] MEDS: Insulin LISPRO 300 UNITS/3 ML VIAL SQ SCH ×2 (08:07→12:13)
[2017-09-18] MEDS: Aspirin Enteric Coated 81 MG Tablet PO SCH (08:51)
--- NOTE | 2017-09-18 09:24 | Discharge Summary ---
- NOTES TO OUTPATIENT PROVIDER Notes to Outpatient Provider: Admitted for bilateral feet ulcer, s/p R 3rd toe and L 1st toe amputation. Path +ve for OM. Transferred to SNF for IV abx and have briefly placed him on sliding scale for tight glycemic control. Further need for DM medications to be determined as outpatient. Zocor held due to deranged LFT Orders not resulted at time of discharge: Pending orders 09/12/17 16:50 XR toes LT [XR] Routine 09/12/17 17:45 Culture,Anaerobic [RM] Routine Date of Encounter: 09/18/17 Time of Encounter: 09:10 - Discharge Diagnosis (1) Diabetic foot ulcer Priority: Primary Status: Acute Qualifiers: Diabetic foot ulcer location: unspecified part of foot Diabetes mellitus type: due to underlying condition Laterality: left Non-pressure ulcer stage : with other severity Qualified Code(s): E08.621 - Diabetes mellitus due to underlying condition with foot ulcer; L97.528 - Non-pressure chronic ulcer of other part of left foot with other specified severity (2) Elevated transaminase level Priority: Secondary Status: Acute (3) CAD (coronary artery disease) Priority: Secondary Status: Chronic Qualifiers: Coronary Disease-Associated Artery/Lesion type: unspecified vessel or lesion type [place] vs. transplanted heart: [place] heart Associated angina: angina presence unspecified Qualified Code(s): I25.10 - Atherosclerotic heart disease of [place] coronary artery without angina pectoris (4) HLD (hyperlipidemia) Priority: Secondary Status: Chronic Qualifiers: Hyperlipidemia type: pure hypercholesterolemia Qualified Code(s): E78.00 - Pure hypercholesterolemia, unspecified; E78.0 - Pure hypercholesterolemia (5) HTN (hypertension) Priority: Secondary Status: Chronic Qualifiers: Hypertension type: essential hypertension Qualified Code(s): I10 - Essential (primary) hypertension (6) Dementia Priority: Secondary Status: Chronic Qualifiers: Dementia type: unspecified type Dementia behavioral disturbance: without behavioral disturbance Qualified Code(s): F03.90 - Unspecified dementia without behavioral disturbance (7) DVT prophylaxis Priority: Secondary Status: Acute Hospital course: Mr. Cano is a 81 year old male with PMHx of DM, HTN presented to the ED with feet ulcers. He was evaluated by podiatry and underwent partial L 1st toe Ray and R 3rd toe amputation. Culture grew Citrobacter species and path +ve for OM on L sesamoid bone. He was initially on vanc/zosyn which was eventually switched to IV cefepime. Of note, he had deranged LFT during the admission which may have been due to medication effect (zocor, zosyn, tylenol use). Therefore, zocor was stopped inpatient. Patient is discharged to [facility] for further abx care and PT. Weekly CBC, BUN/Cr, ESR, CRP to be done at [facility] and faxed to ID. Follow up with ID on 10/01 at 820am. Discharge discussed with: patient, case management - Time Spent with Patient Total time spent providing and/or coordinating discharge services: Greater than 30 minutes - Discharge Medications Prescriptions: Cefepime HCl/Dextrose, Iso-Osm [Cefepime 2 gm Injection] 2 gm IV Q12HR 12 Days # 24 unit Home Medications: Aspirin [Adult Aspirin Regimen] 81 mg PO DAILY 05/08/17 [History] Cefepime HCl/Dextrose, Iso-Osm [Cefepime 2 gm Injection] 2 gm IV Q12HR 12 Days # 24 unit 09/18/17 [Rx] Insulin LISPRO [HumaLOG] 0 units SQ HS vial 09/18/17 [Rx] Insulin LISPRO [HumaLOG] 0 units SQ TIDAC vial 09/18/17 [Rx] Allergies/Adverse Reactions: 3 Allergy/AdvReac Type Severity Reaction Status Date / Time metoprolol AdvReac Rash Verified 09/11/17 13:24 Date of admission: 09/11/17 13:49 Primary care physician: Brock Ridley DO Consults: 09/11/17 13:50 Consult to Diabetes Education [CONS] Routine Comment: Reason for Consult: Patient has diabetes that is currently not well- controlled. Pt. also has dementia which makes compliance more difficult. Pts. family needs education in order to promote compliance. 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 Currently on vanc/zosyn ?which abx has the best bone penetration Time Notified: 13:00 Call Completed: Yes - Constitutional Vitals: Temp Pulse Resp BP Pulse Ox 99.0 F 53 14 157/74 97 09/18/17 07:58 09/18/17 07:58 09/18/17 07:58 09/18/17 07:58 09/18/17 07:58 General appearance: Present: cooperative, A&O X 2, pleasant, no acute distress, answers questions appropriately Exam: General: Alert and oriented HEENT:EOM, pupils equal, round, and reactive. No jaundice Cardiovascular:Normal S1 & S2, no murmurs or gallops. No JVD. Pulse regular. Lungs:Normal breath sounds, no wheezes or crackles. Abdomen:Soft, non-tender, no rigidity. Extremities: Toe dressing dry and clean bilaterally Neurological:Normal cognition and motor skills. Skin:Normal color, no rash, no lesions. Pulses:Carotid and radial pulses normal +2. Rest of the physical exam is non-contributory - Patient Status Disposition: Transfer SNF Condition: Good Overall status at discharge: patient is progressing back to baseline - Discharge Instructions Instructions: Diabetic Foot Care (DC) Follow Up With: Brock Ridley DO [Primary Care Provider] - - Diet and Activity Activity: as per physical therapy Diet: diabetic diet
--- NOTE | 2017-09-18 09:41 | Physician Discharge Referral ---
ExtendedCare Referral Info Transfer To: [facility] - Diagnosis (1) Diabetic foot ulcer Priority: Primary Status: Acute (2) Elevated transaminase level Priority: Secondary Status: Acute (3) CAD (coronary artery disease) Priority: Secondary Status: Chronic (4) HLD (hyperlipidemia) Priority: Secondary Status: Chronic (5) HTN (hypertension) Priority: Secondary Status: Chronic (6) Dementia Priority: Secondary Status: Chronic (7) DVT prophylaxis Priority: Secondary Status: Acute - Transfer Medications Prescriptions: Cefepime HCl/Dextrose, Iso-Osm [Cefepime 2 gm Injection] 2 gm IV Q12HR 12 Days # 24 unit Home Medications: Aspirin [Adult Aspirin Regimen] 81 mg PO DAILY 05/08/17 [History] Cefepime HCl/Dextrose, Iso-Osm [Cefepime 2 gm Injection] 2 gm IV Q12HR 12 Days # 24 unit 09/18/17 [Rx] Insulin LISPRO [HumaLOG] 0 units SQ HS vial 09/18/17 [Rx] Insulin LISPRO [HumaLOG] 0 units SQ TIDAC vial 09/18/17 [Rx] Allergies/Adverse Reactions: 3 Allergy/AdvReac Type Severity Reaction Status Date / Time metoprolol AdvReac Rash Verified 09/11/17 13:24 - Respiratory Orders Smoking Cessation: Smoking cessation has been advised. For more information, call the [place] Tobacco Quit Line at 6-598-YCPONOW. - Lab Orders Lab Orders: Other (include drug levels w/frequency) (CBC, BUN/Cr, ESR, CRP weekly and forward the results to infectious disease) - Rehabiliation Orders Rehab Orders: Evaluation for Physical Therapy - Treatments List/Other: IV cefepime Q12 for 2 weeks CERTIFICATION: I certify that the transfer of the above named patient to an Extended Care Facility is necessary for the continuing treatment of the diagnosis listed. The above information is true and accurate reflection of patient's current condition. Confidential - Redisclosure prohibited without a patient's written consent.
[2017-09-18] MEDS ORDERED: Lidocaine -MPF 1% 5 ML AMPUL INFILT ONE (10:41)
--- NOTE | 2017-09-18 11:16 | Infectious Disease Progress No ---
Date of Encounter: 09/18/17 Time of Encounter: 11:14 - Assessment and Plan (1) Sepsis Status: Acute The patient had two SIRS criteria. Likely secondary to osteomyelitis. Improved. WBC has normalized. He has been afebrile. Blood cultures drawn 09/11/17 are negative x 2 sets. Qualifiers: Sepsis type: sepsis due to unspecified organism Qualified Code(s): A41.9 - Sepsis, unspecified organism (2) Foot osteomyelitis, left Status: Acute Location: Left foot, 1st phalange and metatarsal #1. Causative organism: Citrobacter freundii and Citrobacter youngae. Likely secondary to infected DFU. Left foot Xray showed no definite osteomyelitis and minimal soft tissue gas. MRI of the left foot showed osteomyelitis of the 1st metatarsal head and shaft, 1st proximal phalange base and shaft, and hallux sesamoids as well as 2nd metatarsal head early osteomyelitis vs. reactive osteitis. It also showed soft tissue gas overlying the 1st and 2nd metatarsal head. Podiatry consulted and following. Status post left partial 1st ray amputation and soft tissue rearrangement and right foot 3rd toe amputation at the interphalangeal joint. Operative note reviewed. Pus noted in the right foot third toe and bone sent for pathology. Left foot sesamoid bones were sent for culture and are positive for Citrobacter. The bone that was directly beneath the ulceration and the bone of the first MTP joint was noted to be dark in appearance and devitalized. Wound culture was positive for Citrobacter as well. Pathology of the left sesamoid bone positive for OM. Right third toe negative for OM. Wound care and activity restrictions per the podiatry team. ESR 104 and CRP 88. Continue Cefepime 2 grams IV Q12H. Duration of treatment depends on the clinical picture. We will tentatively plan on 2 weeks of IV antibiotics and follow the patient's labs and how he does clinically. The patient has known PVD and is diabetic, which puts him at risk for delayed wound healing and re-infection. I had a long discussion with the patient and his family regarding the risks, benefits, and alternatives to IV antibiotics and they agree to proceed. Monitor renal function and dose-adjust antibiotics. Will need weekly CBC, BUN/Cr, ESR, CRP. Will need weekly IV care. Follow up with ID 10/01/17 at 0820. Qualifiers: Osteomyelitis type: acute hematogenous Qualified Code(s): M86.072 - Acute hematogenous osteomyelitis, left ankle and foot (3) Diabetic foot ulcer Status: Acute Location: Right foot third toe. Likely secondary to poor-fitting shoes. Podiatry consulted. Status post amputation of the right foot third toe at the IP joint. Pus noted intra-op. No cultures obtained. Pathology of the left sesamoid bone positive for OM. Right third toe negative for OM. Wound care and activity restrictions per the podiatry team. Continue antibiotics as above. Qualifiers: Diabetic foot ulcer location: unspecified part of foot Diabetes mellitus type: due to underlying condition Laterality: left Non-pressure ulcer stage : with other severity Qualified Code(s): E08.621 - Diabetes mellitus due to underlying condition with foot ulcer; L97.528 - Non-pressure chronic ulcer of other part of left foot with other specified severity (4) Elevated transaminase level Status: Acute AST and ALT improved. Etiology unclear, but possibly medication-related. The family states he has been taking a lot of Tylenol recently. He also takes Zocor daily. Medications were adjusted by the primary team. Abdominal exam benign. Further workup and management per the primary team. (5) Type 2 diabetes mellitus with foot ulcer Status: Chronic Controlled. HgbA1C 6.6%. Recommend aggressive glucose monitoring and control to promote wound healing and prevent re-infection. Qualifiers: Diabetes mellitus bed bug exterminator insulin use: without half-way use Qualified Code(s): E11.621 - Type 2 diabetes mellitus with foot ulcer; L97.509 - Non- pressure chronic ulcer of other part of unspecified foot with unspecified severity (6) CAD (coronary artery disease) Status: Chronic Qualifiers: Coronary Disease-Associated Artery/Lesion type: unspecified vessel or lesion type [place] vs. transplanted heart: [place] heart Associated angina: angina presence unspecified Qualified Code(s): I25.10 - Atherosclerotic heart disease of [place] coronary artery without angina pectoris (7) Dementia Status: Chronic Qualifiers: Dementia type: unspecified type Dementia behavioral disturbance: without behavioral disturbance Qualified Code(s): F03.90 - Unspecified dementia without behavioral disturbance (8) HLD (hyperlipidemia) Status: Chronic Qualifiers: Hyperlipidemia type: pure hypercholesterolemia Qualified Code(s): E78.00 - Pure hypercholesterolemia, unspecified; E78.0 - Pure hypercholesterolemia (9) HTN (hypertension) Status: Chronic Qualifiers: Hypertension type: essential hypertension Qualified Code(s): I10 - Essential (primary) hypertension (10) Peripheral vascular disease Status: Acute Status post aortography with runoff bilaterally that showed right common femoral severe flow-limiting calcific and preocclusive disease as well as occlusion of the left posterior tibial, left anterior tibial, and left dorsalis pedis. Per Dr. Schumacher's note, no surgical option for revascularization of the LLE and open revascularization recommended on an elective basis for preocclusive right common femoral artery stenosis. - Subjective Interval history: Patient seen and examined. No acute events noted overnight. Patient resting quietly in bed. States overall feels well. Denies fevers, chills, or rigors. Denies chest pain, shortness of breath, or cough. Denies nausea, vomiting, or diarrhea. Denies abdominal pain, urinary complaints, or appetite changes. Denies pain at the surgical sites. Denies oral thrush or skin lesions. Pending transfer to [facility] later today. Infect Dis PN-Objective Data - Labs CBC & Chem 7: 09/18/17 05:16 09/18/17 05:16 Labs: Laboratory Results - last 24 hr 09/17/17 09/17/17 09/18/17 11:20 16:57 05:16 WBC 9.5 RBC 3.72 L Hgb 11.7 L Hct 35.1 L MCV 94.4 MCH 31.5 MCHC 33.3 RDW 13.7 Plt Count 269 MPV 10.3 Immature Gran % 1.1 Seg Neutrophils % 65.0 Lymphocytes % 21.3 Monocytes % 8.6 Eosinophils % 3.4 Basophils % 0.6 Neutrophils # 6.2 Lymphocytes # 2.0 Monocytes # 0.8 Eosinophils # 0.3 Basophils # 0.1 Sodium Potassium Chloride Carbon Dioxide BUN Creatinine Est GFR ( Amer) Est GFR (Non-Af Amer) BUN/Creatinine Ratio Glucose POC Glucose 171 H 176 H Calculated Osmolality Calcium Total Bilirubin AST ALT Alkaline Phosphatase Serum Total Protein Albumin Globulin Albumin/Globulin Ratio 09/18/17 05:16 WBC RBC Hgb Hct MCV MCH MCHC RDW Plt Count MPV Immature Gran % Seg Neutrophils % Lymphocytes % Monocytes % Eosinophils % Basophils % Neutrophils # Lymphocytes # Monocytes # Eosinophils # Basophils # Sodium 137 Potassium 3.8 Chloride 105 Carbon Dioxide 24 BUN 13 Creatinine 0.93 Est GFR ( Amer) > 60 Est GFR (Non-Af Amer) > 60 BUN/Creatinine Ratio 14 Glucose 137 H POC Glucose Calculated Osmolality 286 Calcium 8.3 L Total Bilirubin 0.6 AST 128 H ALT 223 H Alkaline Phosphatase 80 Serum Total Protein 6.4 Albumin 3.0 L Globulin 3.4 Albumin/Globulin Ratio 0.9 L Cultures: Cultures 09/11/17 16:41 Blood Culture - Final Peripheral Venipuncture No growth. Final report. 09/11/17 16:41 Blood Culture - Final Peripheral Venipuncture No growth. Final report. 09/12/17 17:45 Surgical Biopsy Culture - Final Left Foot Citrobacter freundii 09/12/17 17:45 Anaerobic Culture - Preliminary Left Foot At this time, no anaerobic growth is present. The culture will be finalized after 5 days of incubation. 09/12/17 17:45 Wound Culture - Final Left Foot Citrobacter youngae 09/11/17 15:27 Wound Culture - Final Left Foot Citrobacter freundii Serology 09/11/17 Range/Units 16:33 Urine Color Yellow (Yellow) Urine Clarity Clear (Clear) Urine pH 5.5 (5.0-8.0) pH Units Ur Specific [place] > 1.030 H (1.010-1.025) Urine Protein 30 H (Neg-Trace) mg/dL Urine Glucose (UA) 250 H (Normal) mg/dL Urine Ketones Negative (Negative) mg/dL Urine Blood Negative (Negative) Urine Nitrite Negative (Negative) Urine Bilirubin Negative (Negative) Urine Urobilinogen Normal (Normal) mg/dL Ur Leukocyte Esterase Negative (Negative) Urine Microscopic RBC 0-3 (0-3) per hpf Urine Microscopic WBC 0-3 (0-3) per hpf Ur Squamous Epith Cells Many H (None-Few) per lpf Urine Bacteria None Seen (None-Few) per hpf Hyaline Casts None Seen (None-Few) per lpf Ur Culture Indicated? NO (NO) Exam - Constitutional Vitals: Temp Pulse Resp BP Pulse Ox 99.0 F 53 14 157/74 97 09/18/17 07:58 09/18/17 07:58 09/18/17 07:58 09/18/17 07:58 09/18/17 07:58 General appearance: average body habitus, cooperative, no acute distress - Head Head exam: Present: atraumatic, normal inspection, normocephalic - Eye Eye exam: Present: EOMI, normal appearance, PERRL Pupils: Present: normal accommodation - ENT ENT exam: Present: mucous membranes moist - Neck Neck exam: Present: normal inspection - Respiratory Respiratory exam: Present: CTAB. Absent: rales, respiratory distress, rhonchi, wheezes - Cardiovascular Cardiovascular exam: Present: RRR, +S1, +S2 - GI/Abdominal GI/Abdominal exam: Present: normal bowel sounds, soft. Absent: distended, tenderness - Extremities Exam Additional comments: Bilateral foot dressings clean, dry, and intact. - Neurological Exam Neurological exam: Present: alert, oriented X3, no focal deficits - Psychiatric Psychiatric exam: Present: normal affect, normal mood - Skin Skin exam: Present: dry, intact, normal color, warm Consult Discharge Plan - Plan Instructions: Diabetic Foot Care (DC) Referrals: Navdeep Ríos DPM [Other] - 09/25/17 9:00 am (Office is located at the [facility]tr[facility] Between doors. ) Brock Ridley DO [Primary Care Provider] - Prescriptions: Cefepime HCl/Dextrose, Iso-Osm [Cefepime 2 gm Injection] 2 gm IV Q12HR 12 Days # 24 unit - Attending Attestation I examined this patient and my medical decision-making was reviewed with the Resident Physician. I agree with the documented findings, disposition and treatment plan as described except to the extent set forth below.
== END 2017-09-18 16:34 | DRG 503 ==
LOC: EMEROO 09:39 → 3ANU 09:39 → SUATTDRO 13:49
PROVIDERS: ADMIT Student in an Organized Health Care Education/Training Program; ATTEND Internal Medicine

== ENCOUNTER 2018-10-08 13:34 | Inpatient (IN) ==
--- NOTE | 2018-10-08 13:57 | Emergency Department Note ---
Disposition Clinical Impression: Foot infection Disposition: Admitted As Inpatient Condition: Fair Forms: ED Satisfaction Letter Time of Disposition: 18:17 General Adult HPI - General Chief complaint: ED Extremity Problem,Nontraumatic Stated complaint: foot wound Time Seen by Provider: 10/08/18 13:48 Source: family Mode of arrival: ambulatory Limitations: no limitations Nursing Notes Reviewed: Yes Vital Signs Reviewed: Yes - History of Present Illness HPI Narrative: Patient is a 82-year-old male with past medical history of peripheral arterial disease, diabetes as well as ulcerations of the feet with the left foot requiring first toe amputation presents to ED for admission for antibiotics for foot wound. Patient was sent in by his caddie supervisor after being seen at the wound clinic with concern for increasing erythema of the right foot as well as an ul cer to the bottom right base of the foot. Patient denying any other associated symptoms such as fever. States he does not have sensation in his lower 70s due to neuropathy. He also reports that when they have evaluated his vasculature in the past 8 does not receive hardly any flow to his feet up to his knees. Pain Scale: 0 - Related Data Home Medications Medication Instructions Recorded Confirmed Ascorbate Calcium [Vitamin C] 500 mg PO DAILY 10/08/18 10/08/18 Aspirin [Lo-Dose Aspirin EC] 81 mg PO DAILY 10/08/18 10/08/18 Cetyl Alc/Stearyl Alc/Pg/Sls 454 gm TP DAILY 10/08/18 10/08/18 [Cetaphil Cream] Glucagon,Human Recombinant 1 mg IJ PRN PRN 10/08/18 10/08/18 [Glucagon Emergency Kit] Insulin ASPART [NovoLOG] 0 unit SQ 10/08/18 Insulin DETEMIR [Levemir] 10 unit SQ HS 10/08/18 10/08/18 Memantine [Namenda] 10 mg PO BID 10/08/18 10/08/18 Methotrexate 25 mg IJ DAILY 10/08/18 10/08/18 Multivit-Min/Iron/Folic Acid/K 1 tab PO DAILY 10/08/18 10/08/18 [Adults Multivitamin Tablet] Polyethylene Glycol 3350 [MiraLAX] 17 gm PO DAILY 10/08/18 10/08/18 Trazodone HCl 25 mg PO HS 10/08/18 10/08/18 Allergies Allergy/AdvReac Type Severity Reaction Status Date / Time metoprolol AdvReac Rash Verified 09/11/17 13:24 All systems ED: reviewed and negative except as stated. Review of Systems: As Per HPI Constitutional: Denies: fever, chills Integumentary: Reports: rash Past Medical History - Past Medical History Attestation: Yes The following information was validated with the patient. Medical history: Reports: coronary artery disease, dementia, diabetes, hyperlipidemia, hypertension, myocardial infarction Surgical history: Reports: coronary bypass (CABG) Psychiatric history: Reports: no psych history - Social History Smoking Status: Former smoker Alcohol use: Reports: none Drug use: Reports: none Physical Exam - General Limitations: no limitations General appearance: alert - Head Head exam: atraumatic, normocephalic, normal inspection - Eye Eye exam: Present: normal appearance, PERRL, EOMI - ENT ENT exam: normal exam, normal oropharynx, mucous membranes moist - Neck Neck exam: Present: normal inspection, full ROM, trachea midline - Chest Chest inspection: Present: normal inspection, symmetric chest wall rise - Respiratory Respiratory exam: Present: normal lung sounds bilaterally - Cardiovascular Cardiovascular exam: Present: regular rate, normal rhythm, normal heart sounds, +S1, +S2 - Abdominal Exam Abdominal exam: Present: soft, Non-Tender, normal bowel sounds. Absent: tenderness, distention, guarding, rebound, rigidity - Expanded Lower Extremity Exam Foot/toe exam: Present: erythema, other (ulcer at the base of the 1st toe on the right with surrounding erythema. No induration or drainage. ) - Back Exam Back exam: Present: normal inspection, full ROM. Absent: tenderness - Neurological Exam Neurological exam: Present: alert, oriented X3 - Psychiatric Psychiatric exam: Present: normal affect, normal mood - Skin Skin exam: Present: warm, dry, normal color, erythema (right lower foot. ) Course Course Narrative: Patient went plain films she started on IV antibiotics and appropriate ABIs were ordered and he is noted to the hospitalist for further evaluation with a consult placed to podiatry. Vital Signs Temperature 98.1 F 10/08/18 13:36 Pulse Rate 68 10/08/18 13:36 Respiratory Rate 18 10/08/18 13:36 Blood Pressure 152/70 10/08/18 13:36 O2 Sat by Pulse Oximetry 99 10/08/18 13:36 Temperature 98.1 F 10/08/18 13:36 Pulse Rate 68 10/08/18 15:52 Respiratory Rate 18 10/08/18 15:52 Blood Pressure 155/67 10/08/18 15:52 O2 Sat by Pulse Oximetry 100 10/08/18 15:52 Oxygen Delivery Oxygen Delivery Room Air Medical Decision Making - Medical Records Medical records reviewed: Yes I reviewed the patient's medical records. - Lab Data Lab results reviewed: Yes I reviewed the patient's lab results. Result diagrams: 10/08/18 14:17 10/08/18 14:17 Lab Results 10/08/18 10/08/18 Range/Units 14:17 14:17 WBC 10.0 (4.3-11.1) K/mcL RBC 4.34 (4.19-5.50) M/mcL Hgb 13.8 (12.9-16.9) g/dL Hct 41.9 (37.5-50.1) % MCV 96.5 (83.0-100.0) fL MCH 31.8 (28.0-33.3) pg MCHC 32.9 (31.6-35.5) g/dL RDW 13.9 (11.5-14.5) % Plt Count 147 (140-400) K/mcL MPV 11.2 (9.4-12.4) fL Immature Gran % 0.3 (0-4) % Seg Neutrophils % 71.4 % Lymphocytes % 14.7 % Monocytes % 12.1 % Eosinophils % 1.3 % Basophils % 0.2 % Neutrophils # 7.1 (1.6-8.9) K/mcL Lymphocytes # 1.5 (0.6-4.6) K/mcL Monocytes # 1.2 (0.0-1.3) K/mcL Eosinophils # 0.1 (0.0-0.6) K/mcL Basophils # 0.0 (0.0-0.2) K/mcL Sodium 135 L (136-145) mEq/L Potassium 3.7 (3.5-5.1) mEq/L Chloride 101 (98-107) mEq/L Carbon Dioxide 28 (23-29) mEq/L BUN 20 (8-23) mg/dL Creatinine 1.28 (0.70-1.30) mg/dL Est GFR ( Amer) > 60 (> 60) Est GFR (Non-Af Amer) 54 L (> 60) BUN/Creatinine Ratio 16 (6-26) Glucose 240 H (70-105) mg/dL Calculated Osmolality 290 (280-300) Calcium 9.1 (8.6-10.3) mg/dL - Radiology Data Radiology results reviewed: Yes I reviewed the patient's radiology results. Foot X-Ray 10/08/18 14:17 IMPRESSION: 1. Soft tissue ulceration along the plantar surface underlying the great toe 2. No acute bony abnormality D/ / Bong Adhikari MD / Bong Adhikari MD Interpreting Provider: Bong Adhikari MD
[2018-10-08 14:43] LABS: Basophils % 0.2 %; Eosinophils # 0.1 K/mcL (0.0-0.6); Eosinophils % 1.3 %; Hematocrit 41.9 % (37.5-50.1); Hemoglobin 13.8 g/dL (12.9-16.9); Immature Granulocytes % 0.3 % (0-4); Lymphocytes # 1.5 K/mcL (0.6-4.6); Lymphocytes % 14.7 %; Mean Corpuscular HGB Conc 32.9 g/dL (31.6-35.5); Mean Corpuscular Hemoglobin 31.8 pg (28.0-33.3); Mean Corpuscular Volume 96.5 fL (83.0-100.0); Mean Platelet Volume 11.2 fL (9.4-12.4); Monocytes # 1.2 K/mcL (0.0-1.3); Monocytes % 12.1 %; Neutrophils # 7.1 K/mcL (1.6-8.9); Platelet Count 147 K/mcL (140-400); Red Blood Count 4.34 M/mcL (4.19-5.50); Red Cell Distribution Width 13.9 % (11.5-14.5); Segmented Neutrophils % 71.4 %
[2018-10-08 15:09] LABS: BUN/Creatinine Ratio 16 (6-26); Blood Urea Nitrogen 20 mg/dL (8-23); Calcium 9.1 mg/dL (8.6-10.3); Carbon Dioxide 28 mEq/L (23-29); Chloride 101 mEq/L (98-107); Glucose 240 mg/dL (70-105); Osmolality,Calculated 290 (280-300); Potassium 3.7 mEq/L (3.5-5.1); Sodium 135 mEq/L (136-145); eGFR For African Americans > 60 (> 60); eGFR For Non-African Americans 54 (> 60)
[2018-10-08] MEDS ORDERED: Cefepime HCl 2,000 MG in Water for inj. (sterile) 20 ML IVP STA (16:05)
[2018-10-08] MEDS ORDERED: Piperacillin/Tazobactam 3.375 GM in 0.9 % Sodium Chloride Mini Bag 100 ML IVPB ONE (16:08)
[2018-10-08] MEDS ORDERED: Vancomycin 1,000 MG in D5% in Water 250 ML IVPB ONE (16:08)
[2018-10-08] MEDS ORDERED: Ondansetron 4 MG/2 ML VIAL IVP PRN (16:19)
[2018-10-08] MEDS ORDERED: Naloxone 0.4 MG/ML INJ IVP PRN (16:19)
[2018-10-08] MEDS ORDERED: D5% in Water 1,000 ML IVC PRN (16:24)
[2018-10-08] MEDS ORDERED: Dextrose Gel 15 GM/37.5 ML TUBE PO PRN ×2 (16:24)
[2018-10-08] MEDS ORDERED: *HR* Dextrose 50 % in Water (Syg) 50 ML SYRINGE IVP PRN (16:24)
[2018-10-08] MEDS ORDERED: Ringers Solution, Lactated 1,000 ML IVC SCH (16:30)
[2018-10-08 16:46] LABS: C-Reactive Protein 89 mg/L (Less than 10)
--- NOTE | 2018-10-08 16:48 | Internal Med History&Physical ---
Date of Encounter: 10/08/18 Time of Encounter: 16:30 Internal Medicine - H&P: HPI Chief complaint: R 1st toe ulcer Admitted From: Home History of present illness: Mr. Cano is a 82 year old male with history of diabetes complicated by bilateral feet ulcers/osteomyelitis, s/p partial L 1st Ray and R 3rd toe amputation in 09/2017, CAD, dementia, [facility] resident, who presented from wound clinic due to the concern for R 1st toe wound infection. Pt is pleasantly confused due to his underlying dementia hence further information was obtained from pt's son at bedside. According to him, pt developed a small wound along the plantar aspect of R 1st toe about 3 weeks ago. Pt was then seen by Podiatry about a week ago when debridement was performed. He was placed on a short course of PO Abx which he completed a few days ago. Despite completing the antibiotics, his wound became progressively larger and developed redness/tenderness on his R 1st toe. There is no reported fever/chills at the [facility]. Otherwise, pt denies any chest pain, palpitation, nausea/vomiting, abdominal pain, change in bowel habits, dysuria, or new rash. In the ED, he was afebrile and hemodynamically stable. Labwork was unremarkable except for mildly elevated creatinine of 1.28 (Baseline 1). X-ray of the right foot show soft tissue ulceration along the plantar aspect of the right great toe without any acute bony abnormality. Patient was started on IV vancomycin/Zosyn and admitted for further management with podiatry consultation. Past Med Surg Social Fam HX - Past Medical History Medical history: coronary artery disease, dementia, diabetes, hyperlipidemia, hypertension, myocardial infarction Psychiatric history: no psych history - Past Surgical History Surgical History: coronary bypass (CABG) Additional surgical history: toe amputations - Social History Smoking Status: Former smoker Alcohol use: none Drug use: none - Family History Father Family Member Ethnicity: Non- Living Status: Hx Family Cardiac Disorders: Yes Hx Family Respiratory Disorders: No Hx Family Cancer: No Hx Family GI Disorders: No Hx Family Endocrine Disorder: No Hx Family Neuromuscular Disorders: No Hx Family Neurologic Disorders: No Hx Family HEENT Disorders: No Hx Family Autoimmune Disorders: No Mother Family Member Ethnicity: Non- Living Status: Hx Family Cardiac Disorders: Yes Hx Family Respiratory Disorders: No Hx Family Cancer: No Hx Family GI Disorders: No Hx Family Endocrine Disorder: No Hx Family Neuromuscular Disorders: No Hx Family Neurologic Disorders: No Hx Family HEENT Disorders: No Hx Family Autoimmune Disorders: No Brother Living Status: Internal Medicine - H&P: Meds Ascorbate Calcium [Vitamin C] 500 mg PO DAILY 10/08/18 [History] Aspirin [Lo-Dose Aspirin EC] 81 mg PO DAILY 10/08/18 [History] Cetyl Alc/Stearyl Alc/Pg/Sls [Cetaphil Cream] 454 gm TP DAILY 10/08/18 [History] Glucagon,Human Recombinant [Glucagon Emergency Kit] 1 mg IJ PRN PRN 10/08/18 [History] Insulin ASPART [NovoLOG] 0 unit SQ 10/08/18 [History] Insulin DETEMIR [Levemir] 10 unit SQ HS 10/08/18 [History] Memantine [Namenda] 10 mg PO BID 10/08/18 [History] Methotrexate 25 mg IJ DAILY 10/08/18 [History] Multivit-Min/Iron/Folic Acid/K [Adults Multivitamin Tablet] 1 tab PO DAILY 10/08/18 [History] Polyethylene Glycol 3350 [MiraLAX] 17 gm PO DAILY 10/08/18 [History] Trazodone HCl 25 mg PO HS 10/08/18 [History] Allergy/AdvReac Type Severity Reaction Status Date / Time metoprolol AdvReac Rash Verified 09/11/17 13:24 ROS unobtainable: due to mental status All Systems PM: A 10-system review of systems was performed and is negative for pertinent findings except as documented above in the HPI. - Constitutional Vitals: Temp Pulse Resp BP Pulse Ox 98.1 F 68 18 155/67 100 10/08/18 13:36 10/08/18 15:52 10/08/18 15:52 10/08/18 15:52 10/08/18 15:52 Exam: General: Alert but not oriented, not in acute distress. HEENT:EOMI, pupils equal, round and reactive. Cardiovascular:Normal S1 & S2, No JVD. Pulse regular. Lungs: clear to auscultation, no wheezes/rales Abdomen:Soft, non-tender, no rigidity. 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 1 x 1 cm wound along the plantar aspect of R 1st toe near MTPJ, tender on palpation but no drainage expressed. No fluctuance. Also has blanchable erythema involving the entire 1st toe on both dorsal and plantar region. Neurological: grossly non-focal Skin: Warm and dry Pulses: DP palpable on R foot Rest of the physical exam is non contributory Internal Med - H&P Results - Labs CBC & Chem 7: 10/08/18 14:17 10/08/18 14:17 Labs: Short CBC 10/08/18 Range/Units 14:17 WBC 10.0 (4.3-11.1) K/mcL Hgb 13.8 (12.9-16.9) g/dL Hct 41.9 (37.5-50.1) % Plt Count 147 (140-400) K/mcL Neutrophils # 7.1 (1.6-8.9) K/mcL BMP 10/08/18 14:17 Sodium 135 L Potassium 3.7 Chloride 101 Carbon Dioxide 28 BUN 20 Creatinine 1.28 Glucose 240 H Calcium 9.1 - Impressions ITS Impressions Foot X-Ray 10/08/18 14:17 IMPRESSION: 1. Soft tissue ulceration along the plantar surface underlying the great toe 2. No acute bony abnormality D/ / Bong Adhikari MD / Bong Adhikari MD Interpreting Provider: Bong Adhikari MD - Assessment and Plan (1) Diabetic foot ulcer Current Visit: Yes Status: Acute Assessment and plan: developed R 1st toe ulcer at the plantar aspect initially, now concerning for soft tissue infection progressed despite taking PO abx for the last week started on IV VAnc/zosyn, continue will obtain MRI R foot to rule out OM check ESR/CRP blood and wound cultures ordered in the ED, follow up discussed with podiatry Qualifiers: Diabetic foot ulcer location: toe Diabetes mellitus type: type 2 Laterality: right Non-pressure ulcer stage: limited to breakdown of skin Qualified Code(s): E11.621 - Type 2 diabetes mellitus with foot ulcer; L97.511 - Non-pressure chronic ulcer of other part of right foot limited to breakdown of skin (2) OLEG (acute kidney injury) Current Visit: Yes Status: Acute Assessment and plan: IVF and monitor Cr avoid nephrotoxins (3) Type 2 diabetes mellitus with foot ulcer Current Visit: No Status: Chronic Assessment and plan: low dose sliding scale coverage Qualifiers: Diabetes mellitus correction insulin use: without terminal press operator use Qualified Code(s): E11.621 - Type 2 diabetes mellitus with foot ulcer; L97.509 - Non- pressure chronic ulcer of other part of unspecified foot with unspecified severity (4) CAD (coronary artery disease) Current Visit: No Status: Chronic Assessment and plan: resume ASA, not on statin due to transaminitis Qualifiers: Coronary Disease-Associated Artery/Lesion type: unspecified vessel or lesion type [place] vs. transplanted heart: [place] heart Associated angina: angina presence unspecified Qualified Code(s): I25.10 - Atherosclerotic heart disease of [place] coronary artery without angina pectoris (5) Dementia Current Visit: No Status: Chronic Assessment and plan: continue Namenda Qualifiers: Dementia type: unspecified type Dementia behavioral disturbance: without behavioral disturbance Qualified Code(s): F03.90 - Unspecified dementia without behavioral disturbance (6) DVT prophylaxis Current Visit: Yes Status: Acute Assessment and plan: SQ heparin - Time Spent With Patient Total time spent is greater than 50% in coordination of care (as documented) at patient's floor/unit and/or counseling patient: 25 - 35 minutes
--- NOTE | 2018-10-08 17:37 | Emergency Department Note ---
Disposition Clinical Impression: Foot infection Disposition: Admitted As Inpatient Condition: Fair Time of Disposition: 14:13 Extremity Problem HPI - General Chief complaint: ED Extremity Problem,Nontraumatic Stated complaint: foot wound Time Seen by Provider: 10/08/18 13:48 Source: family Mode of arrival: ambulatory Limitations: no limitations Nursing Notes Reviewed: Yes Vital Signs Reviewed: Yes - History of Present Illness Pain Scale: 0 - Related Data Home Medications Medication Instructions Recorded Confirmed Ascorbate Calcium [Vitamin C] 500 mg PO DAILY 10/08/18 10/09/18 Aspirin [Lo-Dose Aspirin EC] 81 mg PO DAILY 10/08/18 10/09/18 Glucagon,Human Recombinant 1 mg IJ PRN PRN 10/08/18 10/09/18 [Glucagon Emergency Kit] Methotrexate 25 mg IM TH 10/08/18 10/09/18 Multivit-Min/Iron/Folic Acid/K 1 tab PO DAILY 10/08/18 10/09/18 [Adults Multivitamin Tablet] Polyethylene Glycol 3350 [MiraLAX] 17 gm PO DAILY 10/08/18 10/09/18 Trazodone HCl 25 mg PO HS 10/08/18 10/09/18 Emollient Combination No.40 1 appl TP AD 10/09/18 10/09/18 [Cetaphil] Insulin ASPART [Novolog Flexpen] 2 - 14 units SQ ACHS 10/09/18 10/09/18 Insulin DETEMIR [Levemir Flextouch] 10 units SQ HS 10/09/18 10/09/18 Ketoconazole Shampoo [Nizoral 1 appl TP Q48H 10/09/18 10/09/18 Shampoo] Memantine HCl 20 mg PO DAILY 10/09/18 10/09/18 Previous Rx's Medication Instructions Recorded Amoxicillin/Clavulanate [Augmentin] 875 mg PO BIDWM 8 Days #16 tablet 10/15/18 Doxycycline 100 mg PO BID 8 Days #16 capsule 10/15/18 Allergies Allergy/AdvReac Type Severity Reaction Status Date / Time metoprolol AdvReac Rash Verified 10/09/18 14:18 Past Medical History - Past Medical History Medical history: Reports: coronary artery disease, dementia, diabetes, hyperlipidemia, hypertension, myocardial infarction Surgical history: Reports: coronary bypass (CABG) Psychiatric history: Reports: no psych history - Social History Smoking Status: Former smoker Alcohol use: Reports: none Drug use: Reports: none Physical Exam - General Limitations: no limitations General appearance: alert Course Vital Signs Temperature 98.1 F 10/08/18 13:36 Pulse Rate 68 10/08/18 13:36 Respiratory Rate 18 10/08/18 13:36 Blood Pressure 152/70 10/08/18 13:36 O2 Sat by Pulse Oximetry 99 10/08/18 13:36 Temperature 98.7 F 10/15/18 16:00 Pulse Rate 61 10/15/18 16:00 Respiratory Rate 16 10/15/18 16:00 Blood Pressure 141/62 10/15/18 16:00 O2 Sat by Pulse Oximetry 98 10/15/18 16:00 Oxygen Delivery Oxygen Delivery Room Air Extremity Problem, Nontraumati - Lab Data Result diagrams: 10/14/18 07:48 10/15/18 11:56 Lab Results 10/08/18 10/08/18 10/08/18 Range/Units 14:17 14:17 14:17 WBC 10.0 (4.3-11.1) K/mcL RBC 4.34 (4.19-5.50) M/mcL Hgb 13.8 (12.9-16.9) g/dL Hct 41.9 (37.5-50.1) % MCV 96.5 (83.0-100.0) fL MCH 31.8 (28.0-33.3) pg MCHC 32.9 (31.6-35.5) g/dL RDW 13.9 (11.5-14.5) % Plt Count 147 (140-400) K/mcL MPV 11.2 (9.4-12.4) fL Immature Gran % 0.3 (0-4) % Seg Neutrophils % 71.4 % Lymphocytes % 14.7 % Monocytes % 12.1 % Eosinophils % 1.3 % Basophils % 0.2 % Neutrophils # 7.1 (1.6-8.9) K/mcL Lymphocytes # 1.5 (0.6-4.6) K/mcL Monocytes # 1.2 (0.0-1.3) K/mcL Eosinophils # 0.1 (0.0-0.6) K/mcL Basophils # 0.0 (0.0-0.2) K/mcL ESR 69 H (0-10) mm/hr PT (9.4-12.1) Seconds INR Sodium 135 L (136-145) mEq/L Potassium 3.7 (3.5-5.1) mEq/L Chloride 101 (98-107) mEq/L Carbon Dioxide 28 (23-29) mEq/L BUN 20 (8-23) mg/dL Creatinine 1.28 (0.70-1.30) mg/dL Est GFR ( Amer) > 60 (> 60) Est GFR (Non-Af Amer) 54 L (> 60) BUN/Creatinine Ratio 16 (6-26) Glucose 240 H (70-105) mg/dL POC Glucose (70-99) mg/dL Calculated Osmolality 290 (280-300) Calcium 9.1 (8.6-10.3) mg/dL C-Reactive Protein 89 H (Less than 10) mg/L Urine Creatinine mg/dL Urine Sodium mEq/L 10/08/18 10/08/18 10/09/18 Range/Units 17:30 20:29 05:26 WBC 11.2 H (4.3-11.1) K/mcL RBC 3.78 L (4.19-5.50) M/mcL Hgb 12.0 L D (12.9-16.9) g/dL Hct 36.2 L (37.5-50.1) % MCV 95.8 (83.0-100.0) fL MCH 31.7 (28.0-33.3) pg MCHC 33.1 (31.6-35.5) g/dL RDW 13.9 (11.5-14.5) % Plt Count 132 L (140-400) K/mcL MPV 11.2 (9.4-12.4) fL Immature Gran % 0.4 (0-4) % Seg Neutrophils % 73.4 % Lymphocytes % 11.7 % Monocytes % 11.2 % Eosinophils % 2.9 % Basophils % 0.4 % Neutrophils # 8.2 (1.6-8.9) K/mcL Lymphocytes # 1.3 (0.6-4.6) K/mcL Monocytes # 1.3 (0.0-1.3) K/mcL Eosinophils # 0.3 (0.0-0.6) K/mcL Basophils # 0.1 (0.0-0.2) K/mcL ESR (0-10) mm/hr PT (9.4-12.1) Seconds INR Sodium (136-145) mEq/L Potassium (3.5-5.1) mEq/L Chloride (98-107) mEq/L Carbon Dioxide (23-29) mEq/L BUN (8-23) mg/dL Creatinine (0.70-1.30) mg/dL Est GFR ( Amer) (> 60) Est GFR (Non-Af Amer) (> 60) BUN/Creatinine Ratio (6-26) Glucose (70-105) mg/dL POC Glucose 225 H 247 H (70-99) mg/dL Calculated Osmolality (280-300) Calcium (8.6-10.3) mg/dL C-Reactive Protein (Less than 10) mg/L Urine Creatinine mg/dL Urine Sodium mEq/L 10/09/18 10/09/18 10/09/18 Range/Units 05:26 05:26 08:25 WBC (4.3-11.1) K/mcL RBC (4.19-5.50) M/mcL Hgb (12.9-16.9) g/dL Hct (37.5-50.1) % MCV (83.0-100.0) fL MCH (28.0-33.3) pg MCHC (31.6-35.5) g/dL RDW (11.5-14.5) % Plt Count (140-400) K/mcL MPV (9.4-12.4) fL Immature Gran % (0-4) % Seg Neutrophils % % Lymphocytes % % Monocytes % % Eosinophils % % Basophils % % Neutrophils # (1.6-8.9) K/mcL Lymphocytes # (0.6-4.6) K/mcL Monocytes # (0.0-1.3) K/mcL Eosinophils # (0.0-0.6) K/mcL Basophils # (0.0-0.2) K/mcL ESR (0-10) mm/hr PT 13.6 H (9.4-12.1) Seconds INR 1.2 Sodium 133 L (136-145) mEq/L Potassium 3.9 (3.5-5.1) mEq/L Chloride 101 (98-107) mEq/L Carbon Dioxide 23 (23-29) mEq/L BUN 19 (8-23) mg/dL Creatinine 1.31 H (0.70-1.30) mg/dL Est GFR ( Amer) > 60 (> 60) Est GFR (Non-Af Amer) 52 L (> 60) BUN/Creatinine Ratio 15 (6-26) Glucose 167 H (70-105) mg/dL POC Glucose 174 H (70-99) mg/dL Calculated Osmolality 282 (280-300) Calcium 8.4 L (8.6-10.3) mg/dL C-Reactive Protein (Less than 10) mg/L Urine Creatinine mg/dL Urine Sodium mEq/L 10/09/18 10/09/18 Range/Units 11:00 11:40 WBC (4.3-11.1) K/mcL RBC (4.19-5.50) M/mcL Hgb (12.9-16.9) g/dL Hct (37.5-50.1) % MCV (83.0-100.0) fL MCH (28.0-33.3) pg MCHC (31.6-35.5) g/dL RDW (11.5-14.5) % Plt Count (140-400) K/mcL MPV (9.4-12.4) fL Immature Gran % (0-4) % Seg Neutrophils % % Lymphocytes % % Monocytes % % Eosinophils % % Basophils % % Neutrophils # (1.6-8.9) K/mcL Lymphocytes # (0.6-4.6) K/mcL Monocytes # (0.0-1.3) K/mcL Eosinophils # (0.0-0.6) K/mcL Basophils # (0.0-0.2) K/mcL ESR (0-10) mm/hr PT (9.4-12.1) Seconds INR Sodium (136-145) mEq/L Potassium (3.5-5.1) mEq/L Chloride (98-107) mEq/L Carbon Dioxide (23-29) mEq/L BUN (8-23) mg/dL Creatinine (0.70-1.30) mg/dL Est GFR ( Amer) (> 60) Est GFR (Non-Af Amer) (> 60) BUN/Creatinine Ratio (6-26) Glucose (70-105) mg/dL POC Glucose 228 H (70-99) mg/dL Calculated Osmolality (280-300) Calcium (8.6-10.3) mg/dL C-Reactive Protein (Less than 10) mg/L Urine Creatinine 47 mg/dL Urine Sodium 54.6 mEq/L Attestation Statement - Attestation Attestation: I, Cliff Carranza, examined this patient and my medical decision-making was reviewed with the WEIGHT YARDAGE CHECKER/PA/Advanced Practice Nurse/Resident Physician. I agree with the documented findings, disposition and treatment plan as described except to the extent set forth below. 82-year-old male presents emergency Department with concerns of infection to the right foot. Patient states he had left great toe amputation last year which has been healing appropriately. This is over the past week he has had ulcera tions to the plantar aspect of the right great toe. He has surrounding erythema. Patient was referred to the emergency department for further evaluation, x-ray, SHAQUILLE and admission to hospital with IV antibiotics. Patient started on antibiotics in the emergency department. Patient comfortable with the plan of action.
[2018-10-08] MEDS: Insulin LISPRO 300 UNITS/3 ML VIAL SQ SCH ×2 (18:26→20:30)
[2018-10-08] MEDS: traZODone 50 MG TABLET PO SCH (20:23)
[2018-10-08] MEDS ORDERED: Gadolinium Contrast Agent (WT Based) IV PRN (21:08)
[2018-10-08] MEDS: Piperacillin/Tazobactam 3.375 GM in 0.9 % Sodium Chloride Mini Bag 100 ML IVPB SCH (23:47)
[2018-10-09 05:45] LABS: Basophils # 0.1 K/mcL (0.0-0.2); Basophils % 0.4 %; Eosinophils # 0.3 K/mcL (0.0-0.6); Eosinophils % 2.9 %; Hematocrit 36.2 % (37.5-50.1); Immature Granulocytes % 0.4 % (0-4); Lymphocytes # 1.3 K/mcL (0.6-4.6); Lymphocytes % 11.7 %; Mean Corpuscular HGB Conc 33.1 g/dL (31.6-35.5); Mean Corpuscular Hemoglobin 31.7 pg (28.0-33.3); Mean Corpuscular Volume 95.8 fL (83.0-100.0); Mean Platelet Volume 11.2 fL (9.4-12.4); Monocytes # 1.3 K/mcL (0.0-1.3); Monocytes % 11.2 %; Neutrophils # 8.2 K/mcL (1.6-8.9); Platelet Count 132 K/mcL (140-400); Red Blood Count 3.78 M/mcL (4.19-5.50); Red Cell Distribution Width 13.9 % (11.5-14.5); Segmented Neutrophils % 73.4 %; White Blood Count 11.2 K/mcL (4.3-11.1)
[2018-10-09 05:51] LABS: INR 1.2; Prothrombin Time 13.6 Seconds (9.4-12.1)
[2018-10-09 06:07] LABS: BUN/Creatinine Ratio 15 (6-26); Blood Urea Nitrogen 19 mg/dL (8-23); Calcium 8.4 mg/dL (8.6-10.3); Carbon Dioxide 23 mEq/L (23-29); Chloride 101 mEq/L (98-107); Glucose 167 mg/dL (70-105); Osmolality,Calculated 282 (280-300); Potassium 3.9 mEq/L (3.5-5.1); Sodium 133 mEq/L (136-145); eGFR For African Americans > 60 (> 60); eGFR For Non-African Americans 52 (> 60)
[2018-10-09] MEDS: Piperacillin/Tazobactam 3.375 GM in 0.9 % Sodium Chloride Mini Bag 100 ML IVPB SCH ×2 (08:11→20:57)
[2018-10-09] MEDS: Insulin LISPRO 300 UNITS/3 ML VIAL SQ SCH ×4 (08:25→20:58)
[2018-10-09] MEDS: Aspirin Enteric Coated 81 MG Tablet PO SCH (08:25)
--- NOTE | 2018-10-09 11:28 | Internal Med Progress Note ---
Hospitalist Progress Note - Encounter Date of Encounter: 10/09/18 Time of Encounter: 10:00 - Subjective Interval History: No acute events overnight. Remains pleasantly confused but resting comfortably in bed. - Exam Vitals: Temp Pulse Resp BP Pulse Ox 98.0 F 65 14 134/58 98 10/09/18 07:58 10/09/18 07:58 10/09/18 07:58 10/09/18 07:58 10/09/18 07:58 Exam: General: Alert but not oriented, not in acute distress. Cardiovascular:Normal S1 & S2, No JVD. Pulse regular. Lungs: clear to auscultation, no wheezes/rales Abdomen:Soft, non-tender, no rigidity. 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 1 x 1 cm wound along the plantar aspect of R 1st toe near MTPJ, tender on palpation but no drainage expressed. No fluctuance. Also has blanchable erythema involving the entire 1st toe on both dorsal and plantar region. Neurological: grossly non-focal Pulses: DP palpable on R foot - Assessment and Plan (1) Diabetic foot ulcer Current Visit: Yes Status: Acute Assessment and Plan: developed R 1st toe ulcer at the plantar aspect initially, now concerning for soft tissue infection progressed despite taking PO abx for the last week Continue IV VAnc/zosyn D2 MRI R foot (although limited by movement) did not show any obvious findings compatible with OM. ESR/CRP 69/89 respectively Follow up on blood cultures a/w for podiatry evaluation Reviewed patient's aortography with runoff report from 06/[address] Schumacher. Open revascularization for pre-occlusive R [employer] stenosis was recommended at that time on an elective basis. Given the location of his foot ulcer, vascular surgery consulted for possible revascularization during this admission (2) OLEG (acute kidney injury) Current Visit: Yes Status: Acute Assessment and Plan: Cr unchanged, continue IVF today avoid nephrotoxins (3) PAD (peripheral artery disease) Current Visit: Yes Status: Acute Assessment and Plan: known R [employer] disease. TCPO2 26/22 R/L feet Vascular surgery consulted (4) Type 2 diabetes mellitus with foot ulcer Current Visit: No Status: Chronic Assessment and Plan: low dose sliding scale coverage (5) CAD (coronary artery disease) Current Visit: No Status: Chronic Assessment and Plan: resume ASA, not on statin due to transaminitis (6) Dementia Current Visit: No Status: Chronic Assessment and Plan: continue Namenda (7) DVT prophylaxis Current Visit: Yes Status: Acute Assessment and Plan: SQ heparin - Time Spent with Patient Total time spent is greater than 50% in coordination of care (as documented) at patient's floor/unit and/or counseling patient: 25 - 35 minutes Plan of Care Discussed with: workers compensation consultant (discussed with vascular surgery) Internal Medicine: Result - Labs CBC & Chem 7: 10/09/18 05:26 10/09/18 05:26 Labs: Short CBC 10/08/18 10/09/18 Range/Units 14:17 05:26 WBC 10.0 11.2 H (4.3-11.1) K/mcL Hgb 13.8 12.0 L D (12.9-16.9) g/dL Hct 41.9 36.2 L (37.5-50.1) % Plt Count 147 132 L (140-400) K/mcL Neutrophils # 7.1 8.2 (1.6-8.9) K/mcL BMP 10/08/18 10/09/18 14:17 05:26 Sodium 135 L 133 L Potassium 3.7 3.9 Chloride 101 101 Carbon Dioxide 28 23 BUN 20 19 Creatinine 1.28 1.31 H Glucose 240 H 167 H Calcium 9.1 8.4 L - ABG Interpretation ABG results: PT/INR, D-dimer PT 13.6 Seconds (9.4-12.1) H 10/09/18 05:26 - Impressions Impressions Foot X-Ray 10/08/18 14:17 IMPRESSION: 1. Soft tissue ulceration along the plantar surface underlying the great toe 2. No acute bony abnormality D/ / Bong Adhikari MD / Bong Adhikari MD Interpreting Provider: Bong Adhikari MD Foot MRI 10/09/18 17:01 IMPRESSION: Evaluation is limited by motion artifact on nearly all sequences. Within this limitation, there is no definite evidence of osteomyelitis. No evidence to suggest abscess formation. D/ / 10/09/2018 10:38:46 Johnnie Elaine / yovanny Interpreting Provider: Johnnie Elaine Consult Discharge Plan - Plan Referrals: NONE,PCP [Primary Care Provider] - (1) Diabetic foot ulcer Qualifiers: Diabetic foot ulcer location: toe Diabetes mellitus type: type 2 Laterality: right Non-pressure ulcer stage: limited to breakdown of skin Qualified Code(s): E11.621 - Type 2 diabetes mellitus with foot ulcer; L97.511 - Non- pressure chronic ulcer of other part of right foot limited to breakdown of skin (4) Type 2 diabetes mellitus with foot ulcer Qualifiers: Diabetes mellitus fpc insulin use: without fpc use Qualified Code(s): E11.621 - Type 2 diabetes mellitus with foot ulcer; L97.509 - Non- pressure chronic ulcer of other part of unspecified foot with unspecified severity (5) CAD (coronary artery disease) Qualifiers: Coronary Disease-Associated Artery/Lesion type: unspecified vessel or lesion type [place] vs. transplanted heart: [place] heart Associated angina: angina presence unspecified Qualified Code(s): I25.10 - Atherosclerotic heart disease of [place] coronary artery without angina pectoris (6) Dementia Qualifiers: Dementia type: unspecified type Dementia behavioral disturbance: without behavioral disturbance Qualified Code(s): F03.90 - Unspecified dementia without behavioral disturbance
[2018-10-09 11:34] LABS: Sodium, Urine 54.6 mEq/L
--- NOTE | 2018-10-09 13:34 | Podiatry Consult Note ---
Date of Encounter: 10/09/18 Time of Encounter: 12:00 Assessment and Plan (1) Diabetic foot ulcer Current visit: Yes Status: Acute VELASCO stage II ulceration with associated cellultis noted to the right foot sub mt head #1 PLAN: MRI reviewed, negative for abscess or osseous abnormality. Appears to be soft tissue infection only No drainage for wound cultures, blood cultures have been obtained. At this time, continue IV ATB therapy Would recommend continuing therapy for the weekend Patient needs to offload right foot, family reports patient takes off dressing and constantly walks Needs his diabetic boot brought to bedside. If patient has one at home, family to bring in, if not will have one brought to bedside. Needs secured in place so that patient cannot remove boot or dressing, patient has dementia. Will continue to monitor If worsening noted into the weekend will determine further plan At this time recommend local wound care and conservative management. Cleanse with saline, apply betadine, adaptic 4x4 and kerlix daily changes Will consult vascular to review arterial studies and optimize if possible TCPO2 appears to show right dp 26 pt 71 and left dp 22 pt 68. ABIs were not ordered, placed order at this time. Qualifiers: Diabetic foot ulcer location: toe Diabetes mellitus type: type 2 Laterality: right Non-pressure ulcer stage: limited to breakdown of skin Qualified Code(s): E11.621 - Type 2 diabetes mellitus with foot ulcer; L97.511 - Non-pressure chronic ulcer of other part of right foot limited to breakdown of skin (2) Chronic ulcer of left foot with fat layer exposed Current visit: No Status: Acute ASSESEMENT: velasco stage II chronic diabetic ulceration without infection PLAN: No acute infection, unchanged Local wound care Cleanse with saline, apply betadine, calcium alginate, 4x4 and kerlix bulk dressing Daily dressing changes Monitor and call with any changes. History of Present Illness HPI: Mr. 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 Patient is followed by Sanya in wound care center. Patient son at bedside and source of history. Reports patient half-way has been followed by sanya, reports that about week ago when debridement was performed to the wound of the right foot. He was placed on a short course of PO Abx which he completed a few days ago. Despite completing the antibiotics, son reports his wound became progressively larger and developed redness/tenderness on his R 1st toe. Patient son denies any known fevers, chills, n/v or fls. . Afebrile. WBC 10 ESR 69 CRP 89 X-ray of the right foot show soft tissue ulceration along the plantar aspect of the right great toe without any acute bony abnormality. Patient was started on IV vancomycin/Zosyn and admitted. Podiatry has been consulted for further management. Past Med Surg Social Fam HX - Past Medical History Medical history: coronary artery disease, dementia, diabetes, hyperlipidemia, hypertension, myocardial infarction Psychiatric history: no psych history - Past Surgical History Surgical History: coronary bypass (CABG) Additional surgical history: toe amputations - Social History Smoking Status: Former smoker Alcohol use: none Drug use: none - Family History Father Family Member Ethnicity: Non- Living Status: Hx Family Cardiac Disorders: Yes Hx Family Respiratory Disorders: No Hx Family Cancer: No Hx Family GI Disorders: No Hx Family Endocrine Disorder: No Hx Family Neuromuscular Disorders: No Hx Family Neurologic Disorders: No Hx Family HEENT Disorders: No Hx Family Autoimmune Disorders: No Mother Family Member Ethnicity: Non- Living Status: Hx Family Cardiac Disorders: Yes Hx Family Respiratory Disorders: No Hx Family Cancer: No Hx Family GI Disorders: No Hx Family Endocrine Disorder: No Hx Family Neuromuscular Disorders: No Hx Family Neurologic Disorders: No Hx Family HEENT Disorders: No Hx Family Autoimmune Disorders: No Brother Living Status: Medications and Allergies Ascorbate Calcium [Vitamin C] 500 mg PO DAILY 10/08/18 [History] Aspirin [Lo-Dose Aspirin EC] 81 mg PO DAILY 10/08/18 [History] Cetyl Alc/Stearyl Alc/Pg/Sls [Cetaphil Cream] 454 gm TP DAILY 10/08/18 [History] Glucagon,Human Recombinant [Glucagon Emergency Kit] 1 mg IJ PRN PRN 10/08/18 [History] Insulin ASPART [NovoLOG] 0 unit SQ 10/08/18 [History] Insulin DETEMIR [Levemir] 10 unit SQ HS 10/08/18 [History] Memantine [Namenda] 10 mg PO BID 10/08/18 [History] Multivit-Min/Iron/Folic Acid/K [Adults Multivitamin Tablet] 1 tab PO DAILY 10/08/18 [History] RX: Methotrexate 25 mg IJ DAILY 10/08/18 [History] RX: Polyethylene Glycol 3350 [MiraLAX] 17 gm PO DAILY 10/08/18 [History] RX: Trazodone HCl 25 mg PO HS 10/08/18 [History] Allergy/AdvReac Type Severity Reaction Status Date / Time metoprolol AdvReac Rash Verified 09/11/17 13:24 All Systems Reviewed: as per HPI Physical Exam - Constitutional Vitals: Temp Pulse Resp BP Pulse Ox 98.0 F 65 14 134/58 98 10/09/18 07:58 10/09/18 07:58 10/09/18 07:58 10/09/18 07:58 10/09/18 07:58 Exam: CONSTITUTIONAL: awake alert and oriented VASCULAR: pulses bilaterally palpable, dp/pt Warm toes to tibia Cap refill <3 seconds No calf pain with manual squeeze NEUROLOGICAL: intact sensation with light and moderate touch. Reports pain with palpation SKIN: Soft tissue ulceration noted sub mt head #1 right foot, velasco stage II , hyperkeratosis surrounding wound. 0.5cmx0.3cmx0.2cm and limited to breakdown of the skin. There is dry bleeding under hyperkeratosis and son reports this occured last week with debridement. There is a small subdermal hematoma noted distal to wound. small, non fluctuant. There is erythema surrounding wound. Most consolidated between toe and wound. There is also a mild amount of edema erythema and warmth to the dorsal aspect of the right great toe. No ascending cellulitis however son reports that yesterday it was streaking up his leg and is getting better today. No lymphangitis. Left foot, there is a chronic velasco stage II ulceration, medial aspect of MTP #2, there has been amputation of toe #1 and MTP. Wound 0.3x0.2x0.3 without probe to bone. Scant serous drainage noted. No surrounding edema, erythema or warmth. No appearance of infection to left foot. Results - Labs Result Diagrams: 10/09/18 05:26 10/09/18 05:26 Labs: Abnormal lab results WBC 11.2 K/mcL (4.3-11.1) H 10/09/18 05:26 RBC 3.78 M/mcL (4.19-5.50) L 10/09/18 05:26 Hgb 12.0 g/dL (12.9-16.9) L D 10/09/18 05:26 Hct 36.2 % (37.5-50.1) L 10/09/18 05:26 Plt Count 132 K/mcL (140-400) L 10/09/18 05:26 ESR 69 mm/hr (0-10) H 10/08/18 14:17 PT 13.6 Seconds (9.4-12.1) H 10/09/18 05:26 Sodium 133 mEq/L (136-145) L 10/09/18 05:26 Creatinine 1.31 mg/dL (0.70-1.30) H 10/09/18 05:26 Est GFR (Non-Af Amer) 52 (> 60) L 10/09/18 05:26 Glucose 167 mg/dL (70-105) H 10/09/18 05:26 POC Glucose 247 mg/dL (70-99) H 10/08/18 20:29 Calcium 8.4 mg/dL (8.6-10.3) L 10/09/18 05:26 C-Reactive Protein 89 mg/L (Less than 10) H 10/08/18 14:17 H & H 10/08/18 10/09/18 Range/Units 14:17 05:26 Hgb 13.8 12.0 L D (12.9-16.9) g/dL Hct 41.9 36.2 L (37.5-50.1) % All other labs normal. Consult Discharge Plan - Plan Referrals: NONE,PCP [Primary Care Provider] -
--- NOTE | 2018-10-09 15:24 | Vascular/Endovasc Consult Note ---
Date of Encounter: 10/09/18 Time of Encounter: 13:00 Assessment and Plan (1) PAD (peripheral artery disease) Current Visit: Yes Status: Chronic The patient has chronic bilateral lower extremity peripheral vascular occlusive disease. I had a long discussion with the family today to review with them the overall prognosis and progression of atherosclerotic disease. I reviewed with them as well that we have incomplete information about the anatomy of the right lower extremity. If any intervention were to proceed he would need further imaging. Due to his advancing dementia I suggested that a CT angiogram be performed rather than a catheter-based angiogram. However before this study is obtained IVS the family to think very carefully as to how aggressive they wish to be with his lower extremity disease. We discussed the lack of improvement over time for the wounds. We also admitted the progressive nature of his dementia and what this holes for the future. I've asked him to consider these issues before any further testing be performed and that if they desire no type of vascular reconstruction there would be no point in obtaining the CT angiogram. They're going to consider these issues. I told him that I would return on Friday and we could discuss this further or if they have any further questions. I do not view the right lower extremity issue is requiring emergent or urgent intervention. (2) Dementia Current Visit: No Status: Chronic Patient has progressive dementia. He is a resident at a long-term care facility. Qualifiers: Dementia type: unspecified type Dementia behavioral disturbance: without behavioral disturbance Qualified Code(s): F03.90 - Unspecified dementia without behavioral disturbance (3) Type 2 diabetes mellitus with foot ulcer Current Visit: Yes Status: Chronic Patient has chronic diabetes with tibial and pedal artery occlusive disease. Qualifiers: Diabetes mellitus termite treater insulin use: without alf use Qualified Code(s): E11.621 - Type 2 diabetes mellitus with foot ulcer; L97.509 - Non- pressure chronic ulcer of other part of unspecified foot with unspecified severity - History of Present Illness Consult date: 10/09/18 Consult reason: PAD/foot wounds History of present illness: Mr. Cano is a 82 year old male Who was admitted on referral from the wound clinic yesterday. This gentleman is an extended care unit resident. He has known bilateral lower extremity vascular disease. I performed an angiographic for the patient in June 2017. 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 At this time the patient has lack of progression of the wounds of the right foot. The patient cannot provide history as he has dementia but his family is present. They inform me that the patient likes to walk and that he had walked to the point that he formed a blister on his foot and then this has deteriorated to the open wound. He was admitted for inpatient treatment and intravenous antibiotics. The patient admits to no complaints at the time of my visit with him today. On discussing his overall status with his family the indicate that his dementia has been slowly progressive. The patient has multiple risk factors for vascular disease that include diabetes and hyperlipidemia and hypertension. The patient is status post open heart bypass grafting in 2008. The angiogram performed for the patient in June 2017 revealed significant left lower extremity tibial disease with only a single-vessel runoff via the peroneal artery. Due to technical reasons a full angiogram of the right lower extremity was not feasible at that time. It did reveal however severe right common femoral artery disease. More distal runoff is unknown. Noninvasive testing from June 2017 showed an ankle-brachial index of 0.93 on the right and 0.88 on the left. These values however do not correlate with his physical exam and pulse exam. At that time his TCP O2 of the right foot was measured at 44. A TCP O2 measured yesterday demonstrates a value of 26 on the right and 22 at the left foot. Past Med Surg Social Fam HX - Past Medical History Medical history: coronary artery disease, dementia, diabetes, hyperlipidemia, hypertension, myocardial infarction Psychiatric history: no psych history - Past Surgical History Surgical History: coronary bypass (CABG) Additional surgical history: toe amputations - Social History Smoking Status: Former smoker Alcohol use: none Drug use: none - Family History Father Family Member Ethnicity: Non- Living Status: Hx Family Cardiac Disorders: Yes Hx Family Respiratory Disorders: No Hx Family Cancer: No Hx Family GI Disorders: No Hx Family Endocrine Disorder: No Hx Family Neuromuscular Disorders: No Hx Family Neurologic Disorders: No Hx Family HEENT Disorders: No Hx Family Autoimmune Disorders: No Mother Family Member Ethnicity: Non- Living Status: Hx Family Cardiac Disorders: Yes Hx Family Respiratory Disorders: No Hx Family Cancer: No Hx Family GI Disorders: No Hx Family Endocrine Disorder: No Hx Family Neuromuscular Disorders: No Hx Family Neurologic Disorders: No Hx Family HEENT Disorders: No Hx Family Autoimmune Disorders: No Brother Living Status: Medications and Allergies Ascorbate Calcium [Vitamin C] 500 mg PO DAILY 10/08/18 [History] Aspirin [Lo-Dose Aspirin EC] 81 mg PO DAILY 10/08/18 [History] Cetyl Alc/Stearyl Alc/Pg/Sls [Cetaphil Cream] 454 gm TP DAILY 10/08/18 [History] Glucagon,Human Recombinant [Glucagon Emergency Kit] 1 mg IJ PRN PRN 10/08/18 [History] Insulin ASPART [NovoLOG] 0 unit SQ 10/08/18 [History] Insulin DETEMIR [Levemir] 10 unit SQ HS 10/08/18 [History] Memantine [Namenda] 10 mg PO BID 10/08/18 [History] Methotrexate 25 mg IJ DAILY 10/08/18 [History] Multivit-Min/Iron/Folic Acid/K [Adults Multivitamin Tablet] 1 tab PO DAILY 10/08/18 [History] Polyethylene Glycol 3350 [MiraLAX] 17 gm PO DAILY 10/08/18 [History] Trazodone HCl 25 mg PO HS 10/08/18 [History] Allergy/AdvReac Type Severity Reaction Status Date / Time metoprolol AdvReac Rash Verified 10/09/18 14:18 All Systems Review: The remainder of the systems were reviewed and are negative Exam Vital Signs, Last 4 Hours Temp Pulse Resp BP Pulse Ox 10/09/18 13:41 98.2 F 62 14 143/66 99 General: Present: Well developed, Well nourished HEENT: Present: Atraumatic, Normocephaly, Trachea midline Neck: Absent: JVD Cardiac: Present: Reg Rate and Rhythm, No Murmur Lungs: Present: Normal Breath Sounds, No Wheeze, Rales, Rhonchi Neuro: Present: Alert and responsive, Other (Minimal spontaneous speech) Abdomen: Present: Soft, Non-tender. Absent: Masses Vascular: Present: Pulse, absent (The patient has no palpable right popliteal pulse and he has no palpable pedal pulses bilaterally.), Pulse, normal (2+ palpable femoral pulses bilaterally and a palpable left popliteal pulse.), Other (Both feet are dressed with dry gauze. I cannot perform a full examination of the skin and wounds at this time.) Consult Discharge Plan - Plan Referrals: NONE,PCP [Primary Care Provider] -
[2018-10-09] MEDS: traZODone 50 MG TABLET PO SCH (20:57)
[2018-10-10] MEDS: Piperacillin/Tazobactam 3.375 GM in 0.9 % Sodium Chloride Mini Bag 100 ML IVPB SCH ×3 (04:07→20:29)
[2018-10-10] MEDS: Insulin LISPRO 300 UNITS/3 ML VIAL SQ SCH ×4 (07:46→20:28)
[2018-10-10] MEDS: Aspirin Enteric Coated 81 MG Tablet PO SCH (07:46)
--- NOTE | 2018-10-10 12:40 | Internal Med Progress Note ---
Hospitalist Progress Note - Encounter Date of Encounter: 10/10/18 Time of Encounter: 10:15 - Subjective Interval History: No acute events overnight. Remains pleasantly confused but denies any worsening right first toe pain. No fever overnight. - Exam Vitals: Temp Pulse Resp BP Pulse Ox 98.4 F 63 16 132/62 96 10/10/18 07:29 10/10/18 07:29 10/10/18 07:29 10/10/18 07:29 10/10/18 07:29 Exam: General: Alert but not oriented, not in acute distress. Cardiovascular:Normal S1 & S2, No JVD. Pulse regular. Lungs: clear to auscultation, no wheezes/rales Abdomen:Soft, non-tender, no rigidity. 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 1 x 1 cm wound along the plantar aspect of R 1st toe near MTPJ, tender on palpation but no drainage expressed. No fluctuance. Also has blanchable erythema involving the entire 1st toe on both dorsal and plantar region, largely unchanged Neurological: grossly non-focal - Assessment and Plan (1) Diabetic foot ulcer Current Visit: Yes Status: Acute Assessment and Plan: developed R 1st toe ulcer at the plantar aspect initially, now concerning for soft tissue infection progressed despite taking PO abx for the last week Continue IV VAnc/zosyn D3 MRI R foot (although limited by movement) did not show any obvious findings co mpatible with OM. ESR/CRP 69/89 respectively Follow up on blood cultures appreciate podiatry input, to continue IV antibiotics over the weekend. Diabetic foot fitted. appreciate vascular surgery input, suggestive CT angiogram but family undecided. 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 TCPO2 26/22 R/L feet Vascular surgery input appreciated, family considering CT angiogram but not decided yet (4) Type 2 diabetes mellitus with foot ulcer Current Visit: Yes Status: Chronic Assessment and Plan: increase to moderate dose sliding scale coverage (5) CAD (coronary artery disease) Current Visit: No Status: Chronic Assessment and Plan: resume ASA, not on statin due to transaminitis (6) Dementia Current Visit: No Status: Chronic Assessment and Plan: continue Namenda (7) DVT prophylaxis Current Visit: Yes Status: Acute Assessment and Plan: SQ heparin - Time Spent with Patient Total time spent is greater than 50% in coordination of care (as documented) at patient's floor/unit and/or counseling patient: 25 - 35 minutes Plan of Care Discussed with: nurse Internal Medicine: Result - Labs CBC & Chem 7: 10/09/18 05:26 10/09/18 05:26 - ABG Interpretation ABG results: PT/INR, D-dimer PT 13.6 Seconds (9.4-12.1) H 10/09/18 05:26 - Impressions Impressions Foot MRI 10/09/18 17:01 IMPRESSION: Evaluation is limited by motion artifact on nearly all sequences. Within this limitation, there is no definite evidence of osteomyelitis. No evidence to suggest abscess formation. D/ / 10/09/2018 10:38:46 Johnnie Elaine / yovanny Interpreting Provider: Johnnie Elaine Retroperitoneum Ultrasound 10/09/18 18:00 IMPRESSION: No hydronephrosis. Postvoid residual may be artifactually elevated due to reported inability to void D/ / Roger Iglesias / Roger Iglesias Interpreting Provider: Roger Iglesias Consult Discharge Plan - Plan Referrals: NONE,PCP [Primary Care Provider] - (1) Diabetic foot ulcer Qualifiers: Diabetic foot ulcer location: toe Diabetes mellitus type: type 2 Laterality: right Non-pressure ulcer stage: limited to breakdown of skin Qualified Code(s): E11.621 - Type 2 diabetes mellitus with foot ulcer; L97.511 - Non- pressure chronic ulcer of other part of right foot limited to breakdown of skin (4) Type 2 diabetes mellitus with foot ulcer Qualifiers: Diabetes mellitus mcfp insulin use: without intermediate school teacher use Qualified Code(s): E11.621 - Type 2 diabetes mellitus with foot ulcer; L97.509 - Non-pressure chronic ulcer of other part of unspecified foot with unspecified severity (5) CAD (coronary artery disease) Qualifiers: Coronary Disease-Associated Artery/Lesion type: unspecified vessel or lesion type [place] vs. transplanted heart: [place] heart Associated angina: angina presence unspecified Qualified Code(s): I25.10 - Atherosclerotic heart disease of [place] coronary artery without angina pectoris (6) Dementia Qualifiers: Dementia type: unspecified type Dementia behavioral disturbance: without behavioral disturbance Qualified Code(s): F03.90 - Unspecified dementia without behavioral disturbance
[2018-10-10 18:17] LABS: Vancomycin,Trough 7 mcg/mL (5-10)
[2018-10-10 18:37] LABS: BUN/Creatinine Ratio 19 (6-26); Blood Urea Nitrogen 27 mg/dL (8-23); eGFR For African Americans 59 (> 60); eGFR For Non-African Americans 49 (> 60)
[2018-10-10] MEDS: traZODone 50 MG TABLET PO SCH (20:28)
[2018-10-11] MEDS: Piperacillin/Tazobactam 3.375 GM in 0.9 % Sodium Chloride Mini Bag 100 ML IVPB SCH ×3 (04:37→21:11)
[2018-10-11] MEDS: Insulin LISPRO 300 UNITS/3 ML VIAL SQ SCH ×4 (07:18→21:18)
[2018-10-11] MEDS: Aspirin Enteric Coated 81 MG Tablet PO SCH (09:14)
--- NOTE | 2018-10-11 10:16 | Internal Med Progress Note ---
Hospitalist Progress Note - Encounter Date of Encounter: 10/11/18 Time of Encounter: 07:30 - Subjective Interval History: Had temp of 100 x 1 episode yesterday but otherwise no new complaints. Denies any worsening R toe pain, chills, or N/V. - Exam Vitals: Temp Pulse Resp BP Pulse Ox 97.4 F L 59 16 141/66 99 10/11/18 07:18 10/11/18 07:18 10/11/18 07:18 10/11/18 07:18 10/11/18 07:18 Exam: General: Alert but not oriented, not in acute distress. Cardiovascular:Normal S1 & S2, No JVD. Pulse regular. Lungs: clear to auscultation, no wheezes/rales Abdomen:Soft, non-tender, no rigidity. 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 1 x 1 cm wound along the plantar aspect of R 1st toe near MTPJ, tender on palpation but no drainage expressed. No fluctuance. Also has blanchable erythema involving the entire 1st toe on both dorsal and plantar region, largely unchanged Neurological: grossly non-focal - Assessment and Plan (1) Diabetic foot ulcer Current Visit: Yes Status: Acute Assessment and Plan: developed R 1st toe ulcer at the plantar aspect initially, now concerning for soft tissue infection progressed despite taking PO abx for 1 week preceding the admission Continue IV VAnc/zosyn D4 MRI R foot (although limited by movement) did not show any obvious findings compatible with OM. ESR/CRP 69/89 respectively Follow up on blood cultures appreciate podiatry input, to continue IV antibiotics over the weekend. pt wearing Diabetic boot appreciate vascular surgery input, suggestive CT angiogram but family undecided. No emergent intervention required at this point, will follow up on Friday again (2) OLEG (acute kidney injury) Current Visit: Yes Status: Acute Assessment and Plan: Cr unchanged, ?element of CKD continue IVF for now, repeat BMP today. US reassuring avoid nephrotoxins (3) PAD (peripheral artery disease) Current Visit: Yes Status: Chronic Assessment and Plan: known R ART MUSEUM DOCENT disease. TCPO2 26/22 R/L feet Vascular surgery input appreciated, family considering CT angiogram but not decided yet (4) Type 2 diabetes mellitus with foot ulcer Current Visit: Yes Status: Chronic Assessment and Plan: add 5U levemir HS, continue moderate dose sliding scale coverage (5) CAD (coronary artery disease) Current Visit: No Status: Chronic Assessment and Plan: resume ASA, not on statin due to transaminitis (6) Dementia Current Visit: No Status: Chronic Assessment and Plan: continue Namenda (7) DVT prophylaxis Current Visit: Yes Status: Acute Assessment and Plan: SQ heparin - Time Spent with Patient Total time spent is greater than 50% in coordination of care (as documented) at patient's floor/unit and/or counseling patient: 25 - 35 minutes Plan of Care Discussed with: nurse Internal Medicine: Result - Labs CBC & Chem 7: 10/09/18 05:26 10/10/18 17:49 Labs: BMP 10/10/18 17:49 BUN 27 H Creatinine 1.39 H - ABG Interpretation ABG results: PT/INR, D-dimer PT 13.6 Seconds (9.4-12.1) H 10/09/18 05:26 Consult Discharge Plan - Plan Referrals: NONE,PCP [Primary Care Provider] - (1) Diabetic foot ulcer Qualifiers: Diabetic foot ulcer location: toe Diabetes mellitus type: type 2 Laterality: right Non-pressure ulcer stage: limited to breakdown of skin Qualified Code(s): E11.621 - Type 2 diabetes mellitus with foot ulcer; L97.511 - Non- pressure chronic ulcer of other part of right foot limited to breakdown of skin (4) Type 2 diabetes mellitus with foot ulcer Qualifiers: Diabetes mellitus senior care insulin use: without manager terminal use Qualified Code(s): E11.621 - Type 2 diabetes mellitus with foot ulcer; L97.509 - Non- pressure chronic ulcer of other part of unspecified foot with unspecified severity (5) CAD (coronary artery disease) Qualifiers: Coronary Disease-Associated Artery/Lesion type: unspecified vessel or lesion type [place] vs. transplanted heart: [place] heart Associated angina: angina presence unspecified Qualified Code(s): I25.10 - Atherosclerotic heart disease of [place] coronary artery without angina pectoris (6) Dementia Qualifiers: Dementia type: unspecified type Dementia behavioral disturbance: without behavioral disturbance Qualified Code(s): F03.90 - Unspecified dementia without behavioral disturbance
[2018-10-11 12:24] LABS: Hematocrit 43.1 % (37.5-50.1); Lymphocytes # 1.2 K/mcL (0.6-4.6); Mean Corpuscular HGB Conc 31.8 g/dL (31.6-35.5); Mean Corpuscular Hemoglobin 31.7 pg (28.0-33.3); Mean Corpuscular Volume 99.8 fL (83.0-100.0); Mean Platelet Volume 11.4 fL (9.4-12.4); Monocytes # 0.1 K/mcL (0.0-1.3); Platelet Count 156 K/mcL (140-400); Red Blood Count 4.32 M/mcL (4.19-5.50); Red Cell Distribution Width 13.9 % (11.5-14.5)
[2018-10-11 12:26] LABS: Hemoglobin 13.7 g/dL (12.9-16.9); White Blood Count 5.3 K/mcL (4.3-11.1)
[2018-10-11 12:44] LABS: BUN/Creatinine Ratio 17 (6-26); Blood Urea Nitrogen 22 mg/dL (8-23); Calcium 8.5 mg/dL (8.6-10.3); Carbon Dioxide 22 mEq/L (23-29); Chloride 104 mEq/L (98-107); Glucose 220 mg/dL (70-105); Osmolality,Calculated 292 (280-300); Potassium 3.8 mEq/L (3.5-5.1); Sodium 136 mEq/L (136-145); eGFR For African Americans > 60 (> 60); eGFR For Non-African Americans 52 (> 60)
[2018-10-11 12:49] LABS: Basophils # 0.1 K/mcL (0.0-0.2); Eosinophils # 0.5 K/mcL (0.0-0.6); Neutrophils # 3.5 K/mcL (1.6-8.9); Platelet Estimate Normal (Normal)
[2018-10-11] MEDS: traZODone 50 MG TABLET PO SCH (21:11)
[2018-10-11] MEDS: Insulin DETEMIR 100 UNIT/ML X5UNITS SQ SCH (21:11)
[2018-10-12] MEDS: Piperacillin/Tazobactam 3.375 GM in 0.9 % Sodium Chloride Mini Bag 100 ML IVPB SCH ×3 (04:45→20:26)
[2018-10-12 07:30] LABS: BUN/Creatinine Ratio 15 (6-26); Blood Urea Nitrogen 19 mg/dL (8-23); Calcium 8.5 mg/dL (8.6-10.3); Carbon Dioxide 24 mEq/L (23-29); Chloride 106 mEq/L (98-107); Glucose 108 mg/dL (70-105); Osmolality,Calculated 293 (280-300); Potassium 4.1 mEq/L (3.5-5.1); Sodium 140 mEq/L (136-145); eGFR For African Americans > 60 (> 60); eGFR For Non-African Americans 56 (> 60)
[2018-10-12] MEDS: Insulin LISPRO 300 UNITS/3 ML VIAL SQ SCH ×4 (09:10→20:27)
[2018-10-12] MEDS: Aspirin Enteric Coated 81 MG Tablet PO SCH (09:39)
--- NOTE | 2018-10-12 11:51 | Internal Med Progress Note ---
Hospitalist Progress Note - Encounter Date of Encounter: 10/12/18 Time of Encounter: 10:15 - Subjective Interval History: remains pleasantly confused, afebrile since the episode of T100 on 10/11 at 1am. When specifically asked about R foot pain, he states that he has none. - Exam Vitals: Temp Pulse Resp BP Pulse Ox 98.5 F 57 12 139/64 96 10/12/18 10:46 10/12/18 10:46 10/12/18 10:46 10/12/18 10:46 10/12/18 10:46 Exam: General: Alert but not oriented, not in acute distress. Cardiovascular:Normal S1 & S2, No JVD. Pulse regular. Lungs: clear to auscultation, no wheezes/rales Abdomen:Soft, non-tender, no rigidity. 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 1 x 1 cm wound along the plantar aspect of R 1st toe near MTPJ and pt also developed blister distal to the wound. Blanchable erythema involving the entire 1st toe on both dorsal and plantar region which appears to be regressing Neurological: grossly non-focal - Assessment and Plan (1) Diabetic foot ulcer Current Visit: Yes Status: Acute Assessment and Plan: developed R 1st toe ulcer at the plantar aspect initially, now concerning for soft tissue infection progressed despite taking PO abx for 1 week prior the admission MRI R foot (although limited by movement) did not show any obvious findings compatible with OM. ESR/CRP 69/89 respectively blood cultures NGTD Continue IV VAnc/zosyn D5, developed blisters distal to the ulcer a/w for podiatry input. appreciate vascular surgery input, suggested CT angiogram but family undecided. 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 TCPO2 26/22 R/L feet Vascular surgery input appreciated, family considering CT angiogram but not decided yet (4) Type 2 diabetes mellitus with foot ulcer Current Visit: Yes Status: Chronic Assessment and Plan: continue basal bolus insulin, decrease to low dose sliding scale coverage (5) CAD (coronary artery disease) Current Visit: No Status: Chronic Assessment and Plan: resume ASA, not on statin due to transaminitis (6) Dementia Current Visit: No Status: Chronic Assessment and Plan: continue Namenda (7) DVT prophylaxis Current Visit: Yes Status: Acute Assessment and Plan: SQ heparin - Time Spent with Patient Total time spent is greater than 50% in coordination of care (as documented) at patient's floor/unit and/or counseling patient: 25 - 35 minutes Plan of Care Discussed with: nurse Internal Medicine: Result - Labs CBC & Chem 7: 10/11/18 12:00 10/12/18 06:34 Labs: Short CBC 10/11/18 Range/Units 12:00 WBC 5.3 D (4.3-11.1) K/mcL Hgb 13.7 D (12.9-16.9) g/dL Hct 43.1 (37.5-50.1) % Plt Count 156 (140-400) K/mcL Neutrophils # 3.5 (1.6-8.9) K/mcL BMP 10/11/18 10/12/18 12:00 06:34 Sodium 136 140 Potassium 3.8 4.1 Chloride 104 106 Carbon Dioxide 22 L 24 BUN 22 19 Creatinine 1.31 H 1.23 Glucose 220 H 108 H Calcium 8.5 L 8.5 L - ABG Interpretation ABG results: PT/INR, D-dimer PT 13.6 Seconds (9.4-12.1) H 10/09/18 05:26 Consult Discharge Plan - Plan Referrals: NONE,PCP [Primary Care Provider] - (1) Diabetic foot ulcer Qualifiers: Diabetic foot ulcer location: toe Diabetes mellitus type: type 2 Laterality: right Non-pressure ulcer stage: limited to breakdown of skin Qualified Code(s): E11.621 - Type 2 diabetes mellitus with foot ulcer; L97.511 - Non- pressure chronic ulcer of other part of right foot limited to breakdown of skin (4) Type 2 diabetes mellitus with foot ulcer Qualifiers: Diabetes mellitus parts counterman insulin use: without parts counterman use Qualified C ode(s): E11.621 - Type 2 diabetes mellitus with foot ulcer; L97.509 - Non- pressure chronic ulcer of other part of unspecified foot with unspecified severity (5) CAD (coronary artery disease) Qualifiers: Coronary Disease-Associated Artery/Lesion type: unspecified vessel or lesion type [place] vs. transplanted heart: [place] heart Associated angina: angina presence unspecified Qualified Code(s): I25.10 - Atherosclerotic heart disease of [place] coronary artery without angina pectoris (6) Dementia Qualifiers: Dementia type: unspecified type Dementia behavioral disturbance: without behavioral disturbance Qualified Code(s): F03.90 - Unspecified dementia without behavioral disturbance
--- NOTE | 2018-10-12 12:07 | Podiatry Progress Note ---
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 No open wound noted SHAQUILLE R DP 0.63, PT 0.58, L DP 0.68, L PT 0.88 TCP02 R DP 26, PT 71, L DP 22, PT 68 ESR 69, CRP 89, WBC 5.3, afebrile last 24 hours, max temp 100.0 MR negative for abscess or OM Plan: Wound culture and anaerobic culture obtained at bedside, nursing to send down Local wound care, dressings changed, see below Continue IV atb, primary managing Heel medix boots ordered RIGHT FOOT: Cleansed right foot with 0.9 NS, painted bullae with betadine x 3, inserted 18 gauge needle to bullae, drained serosanginous fluid, painted with betadine x 3, covered with adaptic, 4x4 dry gauze, and kerlix. Secured with medipore tape. LEFT FOOT: Cleansed with 0.9 NS, covered with 4x4 dry gauze, kerlix, and secured with medipore tape Impression: MR/MR foot RT wo/w con IMPRESSION: Evaluation is limited by motion artifact on nearly all sequences. Within this limitation, there is no definite evidence of osteomyelitis. No evidence to suggest abscess formation. D/ / 10/09/2018 10:38:46 Johnnie Elaine / yovanny Interpreting Provider: Johnnie Elaine R #: [id number] XR/XR foot 3V RT IMPRESSION: 1. Soft tissue ulceration along the plantar surface underlying the great toe 2. No acute bony abnormality D/ / Bong Adhikari MD / Bong Adhikari MD Interpreting Provider: Bong Adhikari MD Qualifiers: Diabetic foot ulcer location: toe Diabetes mellitus type: type 2 Laterality: right Non-pressure ulcer stage: limited to breakdown of skin Qualified Code(s): E11.621 - Type 2 diabetes mellitus with foot ulcer; L97.511 - Non-pressure chronic ulcer of other part of right foot limited to breakdown of skin Subjective Principal diagnosis: Cellulitis Interval history: Patient awake in bed. Confused. Sitter at bedside. No family present. Pleasant Objective - Vital Signs Vital Signs: Vital Signs Temp Pulse Resp BP Pulse Ox 10/12/18 10:46 98.5 F 57 12 139/64 96 10/12/18 07:02 98.7 F 58 17 156/72 98 10/12/18 04:00 98.5 F 68 18 129/68 97 10/11/18 23:00 97.9 F 54 17 160/73 100 10/11/18 19:08 98.7 F 58 14 134/62 100 10/11/18 16:11 98.0 F 61 16 168/72 100 Intake and Output 10/11/18 10/12/18 10/12/18 23:59 07:59 15:59 Intake Total 580 / 1380 100 / 440 340 / 440 Balance 580 / 1380 100 / 440 340 / 440 Intake: IV Fluids 100 / 300 100 / 200 100 / 200 Zosyn 3.375 GM In 0.9 % Sodium 100 / 300 100 / 200 100 / 200 Chloride (Mini-Bag +) 100 ML @ 25 mls/hr IVPB Q8H [facility] Rx#: [id number] Oral 480 / 1080 240 / 240 Other: Meal Dinner Breakfast Percent of Meal Consumed 90% 90% # Voids 1 1 Weight 83.6 kg Blood Glucose* 96 102 177 Patient Weight 10/12/18 23:59 Weight 83.6 kg - Exam Exam: Constitiutional: Alert. Pleasantly confused.. Well nourished. No acute distress noted Vascular: faint DP/PT bilaterally, CFT <3 sec to all digits, warm to warm from tibia to toes bilaterally, no calf pain with squeeze BLE Neurologic: Diminished sensation to touch, normal plantar response Dermatologic: Right great toe blood bullae noted to plantar aspect, Colon grade II ulceration noted below bullae, erythema noted to dorsal aspect of foot, receding from demarcation line, slight edema noted, left foot diabetic ulcer with hyperkeratosis noted to medial aspect of foot Musculoskeletal: 2/5 muscle strength and normal tone bilaterally. - Lab Result Diagrams: 10/11/18 12:00 10/12/18 06:34 Labs: Abnormal lab results WBC 11.2 K/mcL (4.3-11.1) H 10/09/18 05:26 RBC 3.78 M/mcL (4.19-5.50) L 10/09/18 05:26 Hgb 12.0 g/dL (12.9-16.9) L D 10/09/18 05:26 Hct 36.2 % (37.5-50.1) L 10/09/18 05:26 Plt Count 132 K/mcL (140-400) L 10/09/18 05:26 ESR 69 mm/hr (0-10) H 10/08/18 14:17 PT 13.6 Seconds (9.4-12.1) H 10/09/18 05:26 Sodium 133 mEq/L (136-145) L 10/09/18 05:26 Carbon Dioxide 22 mEq/L (23-29) L 10/11/18 12:00 BUN 27 mg/dL (8-23) H 10/10/18 17:49 Creatinine 1.31 mg/dL (0.70-1.30) H 10/11/18 12:00 Est GFR ( Amer) 59 (> 60) L 10/10/18 17:49 Est GFR (Non-Af Amer) 56 (> 60) L 10/12/18 06:34 Glucose 108 mg/dL (70-105) H 10/12/18 06:34 POC Glucose 102 mg/dL (70-99) H 10/12/18 07:32 Calcium 8.5 mg/dL (8.6-10.3) L 10/12/18 06:34 C-Reactive Protein 89 mg/L (Less than 10) H 10/08/18 14:17 Consult Discharge Plan - Plan Referrals: NONE,PCP [Primary Care Provider] -
--- NOTE | 2018-10-12 15:45 | Vascular/Endovas Progress Note ---
Date of Encounter: 10/12/18 Time of Encounter: 15:00 - Assessment and plan (1) PAD (peripheral artery disease) Current Visit: Yes Status: Chronic The patient has chronic bilateral lower extremity peripheral vascular occlusive disease. I had a long discussion with the family today to review with them the overall prognosis and progression of atherosclerotic disease. I reviewed with them as well that we have incomplete information about the anatomy of the right lower extremity. If any intervention were to proceed he would need further imaging. Due to his advancing dementia I suggested that a CT angiogram be performed rather than a catheter-based angiogram. However before this study is obtained IVS the family to think very carefully as to how aggressive they wish to be with his lower extremity disease. We discussed the lack of improvement over time for the wounds. We also admitted the progressive nature of his dementia and what this holes for the future. I've asked him to consider these issues before any further testing be performed and that if they desire no type of vascular reconstruction there would be no point in obtaining the CT angiogr am. They're going to consider these issues. I told him that I would return on Friday and we could discuss this further or if they have any further questions. I do not view the right lower extremity issue is requiring emergent or urgent intervention. I reviewed the clinical situation with the patient's son. We also today discussed potential plans. They have decided they would not proceed with hayley ography via CAT scan or any surgical intervention at this time. I have informed them that I will remain available as needed and that they may return to see me in the outpatient clinic as well. All questions were answered. (2) Dementia Current Visit: No Status: Chronic Patient has progressive dementia. He is a resident at a long-term care facility. Qualifiers: Dementia type: unspecified type Dementia behavioral disturbance: without behavioral disturbance Qualified Code(s): F03.90 - Unspecified dementia without behavioral disturbance (3) Type 2 diabetes mellitus with foot ulcer Current Visit: Yes Status: Chronic Patient has chronic diabetes with tibial and pedal artery occlusive disease. Qualifiers: Diabetes mellitus residential insulin use: without residential use Qualified Code(s): E11.621 - Type 2 diabetes mellitus with foot ulcer; L97.509 - Non- pressure chronic ulcer of other part of unspecified foot with unspecified severity - Subjective Interval history: Patient had an uneventful weekend. He is continued on his intravenous antibiotics and dressing changes. He has no complaints. His son is in the room. We discussed his overall status as well as the report of the MRI of the foot and his clinical response to the antibiotics and dressing changes. - Physical Examination General: Present: No Apparent Distress HEENT: Present: Atraumatic Vascular: Present: Other (Patient has dressings on both feet and is on decubitus protection with protective boots on both sides as well.) Abdomen: Present: Soft, Non-tender Skin: Present: No rashes noted on visualized skin Results 10/11/18 12:00 10/12/18 06:34 Lab Results, Last 24 hours 10/12/18 06:34 Sodium 140 Potassium 4.1 Chloride 106 Carbon Dioxide 24 BUN 19 Creatinine 1.23 Glucose 108 H Calcium 8.5 L Consult Discharge Plan - Plan Referrals: NONE,PCP [Primary Care Provider] -
[2018-10-12] MEDS: *HR* Heparin 5,000 UNIT/ML VIAL SQ SCH (17:07)
[2018-10-12] MEDS: traZODone 50 MG TABLET PO SCH (20:26)
[2018-10-12] MEDS: Insulin DETEMIR 100 UNIT/ML X5UNITS SQ SCH (20:26)
[2018-10-13 02:48] LABS: Basophils # 0.1 K/mcL (0.0-0.2); Basophils % 0.8 %; Eosinophils # 0.4 K/mcL (0.0-0.6); Eosinophils % 7.1 %; Hematocrit 37.3 % (37.5-50.1); Immature Granulocytes % 0.3 % (0-4); Lymphocytes # 1.7 K/mcL (0.6-4.6); Lymphocytes % 27.7 %; Mean Corpuscular HGB Conc 31.6 g/dL (31.6-35.5); Mean Corpuscular Hemoglobin 31.1 pg (28.0-33.3); Mean Corpuscular Volume 98.4 fL (83.0-100.0); Mean Platelet Volume 10.9 fL (9.4-12.4); Monocytes # 0.3 K/mcL (0.0-1.3); Monocytes % 4.5 %; Neutrophils # 3.7 K/mcL (1.6-8.9); Platelet Count 194 K/mcL (140-400); Red Blood Count 3.79 M/mcL (4.19-5.50); Red Cell Distribution Width 13.7 % (11.5-14.5); Segmented Neutrophils % 59.6 %; White Blood Count 6.2 K/mcL (4.3-11.1)
[2018-10-13 02:52] LABS: Hemoglobin 11.8 g/dL (12.9-16.9)
[2018-10-13 03:03] LABS: BUN/Creatinine Ratio 14 (6-26); Blood Urea Nitrogen 16 mg/dL (8-23); Calcium 8.3 mg/dL (8.6-10.3); Carbon Dioxide 23 mEq/L (23-29); Chloride 107 mEq/L (98-107); Glucose 145 mg/dL (70-105); Osmolality,Calculated 290 (280-300); Sodium 138 mEq/L (136-145); eGFR For African Americans > 60 (> 60); eGFR For Non-African Americans 60 (> 60)
[2018-10-13] MEDS: *HR* Heparin 5,000 UNIT/ML VIAL SQ SCH ×2 (05:32→18:11)
[2018-10-13] MEDS: Piperacillin/Tazobactam 3.375 GM in 0.9 % Sodium Chloride Mini Bag 100 ML IVPB SCH ×3 (05:32→22:09)
[2018-10-13] MEDS: Insulin LISPRO 300 UNITS/3 ML VIAL SQ SCH ×3 (08:46→22:10)
[2018-10-13] MEDS: Aspirin Enteric Coated 81 MG Tablet PO SCH (08:51)
--- NOTE | 2018-10-13 09:15 | Podiatry Progress Note ---
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 Secured with medipore tape. LEFT FOOT: Cleansed with 0.9 NS, covered with 4x4 dry gauze, kerlix, and secured with medipore tape Impression: MR/MR foot RT wo/w con IMPRESSION: Evaluation is limited by motion artifact on nearly all sequences. Within this limitation, there is no definite evidence of osteomyelitis. No evidence to suggest abscess formation. D/ / 10/09/2018 10:38:46 Johnnie Elaine / yovanny Interpreting Provider: Johnnie Elaine R #: [id number] XR/XR foot 3V RT IMPRESSION: 1. Soft tissue ulceration along the plantar surface underlying the great toe 2. No acute bony abnormality D/ / Bong Adhikari MD / Bong Adhikari MD Interpreting Provider: Bong Adhikari MD Qualifiers: Diabetic foot ulcer location: toe Diabetes mellitus type: type 2 L aterality: right Non-pressure ulcer stage: limited to breakdown of skin Qualified Code(s): E11.621 - Type 2 diabetes mellitus with foot ulcer; L97.511 - Non-pressure chronic ulcer of other part of right foot limited to breakdown of skin Subjective Principal diagnosis: Cellulitis Interval history: Patient awake in bed. Sitter at bedside. No family present. Pleasantly confused. Denies any fevers, chills, nausea, vomiting, or diarrhea. Denies any calf pain, chest pain, or shortness of breath. Currently eating breakfast. Objective - Vital Signs Vital Signs: Vital Signs Temp Pulse Resp BP Pulse Ox 10/13/18 08:05 99.4 F 62 14 109/54 98 10/13/18 05:03 98.4 F 65 14 128/61 97 10/12/18 23:59 98.4 F 73 16 111/59 97 10/12/18 20:26 98 10/12/18 20:23 98.8 F 56 16 132/83 98 10/12/18 10:46 98.5 F 57 12 139/64 96 Intake and Output 10/12/18 10/13/18 10/13/18 23:59 07:59 15:59 Intake Total 350 / 790 100 / 100 Balance 350 / 790 100 / 100 Intake: IV Fluids 350 / 550 100 / 100 Zosyn 3.375 GM In 0.9 % Sodium 100 / 300 100 / 100 Chloride (Mini-Bag +) 100 ML @ 25 mls/hr IVPB Q8H [facility] Rx#: [id number] Vancocin 1,500 MG In 0.9 % 250 / 250 Sodium Chloride 250 ML @ 166.67 mls/hr IVPB Q24H [facility] Rx#: [id number] Other: # Voids 1 1 Weight 82.8 kg Blood Glucose* 150 109 Patient Weight 10/13/18 23:59 Weight 82.8 kg - Exam Exam: Constitiutional: Alert. Pleasantly confused. Well nourished. No acute distress noted Vascular: faint DP/PT bilaterally, CFT <3 sec to all digits, warm to warm from tibia to toes bilaterally, no calf pain with squeeze BLE Neurologic: Diminished sensation to touch, normal plantar response Dermatologic: Right great toe erythema and peeling skin noted. Colon grade II ulceration noted below bullae, erythema noted to dorsal aspect of foot, receding from demarcation line, no edema noted, warm to touch, left foot diabetic ulcer with hyperkeratosis noted to medial aspect of foot Musculoskeletal: 2/5 muscle strength and normal tone bilaterally. - Lab Result Diagrams: 10/13/18 01:43 10/13/18 01:43 Labs: Abnormal lab results WBC 11.2 K/mcL (4.3-11.1) H 10/09/18 05:26 RBC 3.79 M/mcL (4.19-5.50) L 10/13/18 01:43 Hgb 11.8 g/dL (12.9-16.9) L D 10/13/18 01:43 Hct 37.3 % (37.5-50.1) L 10/13/18 01:43 Plt Count 132 K/mcL (140-400) L 10/09/18 05:26 ESR 69 mm/hr (0-10) H 10/08/18 14:17 PT 13.6 Seconds (9.4-12.1) H 10/09/18 05:26 Sodium 133 mEq/L (136-145) L 10/09/18 05:26 Carbon Dioxide 22 mEq/L (23-29) L 10/11/18 12:00 BUN 27 mg/dL (8-23) H 10/10/18 17:49 Creatinine 1.31 mg/dL (0.70-1.30) H 10/11/18 12:00 Est GFR ( Amer) 59 (> 60) L 10/10/18 17:49 Est GFR (Non-Af Amer) 56 (> 60) L 10/12/18 06:34 Glucose 145 mg/dL (70-105) H 10/13/18 01:43 POC Glucose 102 mg/dL (70-99) H 10/12/18 07:32 Calcium 8.3 mg/dL (8.6-10.3) L 10/13/18 01:43 C-Reactive Protein 89 mg/L (Less than 10) H 10/08/18 14:17 Consult Discharge Plan - Plan Referrals: NONE,PCP [Primary Care Provider] -
[2018-10-13] MEDS: Acetaminophen 325 MG TABLET PO PRN (11:47)
--- NOTE | 2018-10-13 12:07 | Internal Med Progress Note ---
Hospitalist Progress Note - Encounter Date of Encounter: 10/13/18 Time of Encounter: 09:45 - Subjective Interval History: No acute events overnight. Podiatry was able to manually drain serosanginous fluid from bullae that he developed on the plantar aspect of R 1st toe -> sent for culture. Otherwise, patient remains pleasantly confused and did not have any fever overnight - Exam Vitals: Temp Pulse Resp BP Pulse Ox 98.6 F 59 18 159/70 98 10/13/18 11:44 10/13/18 11:44 10/13/18 11:44 10/13/18 11:44 10/13/18 11:44 Exam: General: Alert but not oriented, not in acute distress. Cardiovascular:Normal S1 & S2, No JVD. Pulse regular. Lungs: clear to auscultation, no wheezes/rales Abdomen:Soft, non-tender, no rigidity. 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 1 x 1 cm wound along the plantar aspect of R 1st toe near MTPJ and pt also developed blister distal to the wound filled with serosanguineous fluid. Erythema on the dorsal aspect of R 1st toe is improving Neurological: grossly non-focal - Assessment and Plan (1) Diabetic foot ulcer Current Visit: Yes Status: Acute Assessment and Plan: developed R 1st toe ulcer at the plantar aspect initially, now admitted for surrounding soft tissue infection progressed despite taking PO abx for 1 week prior the admission MRI R foot (although limited by movement) did not show any obvious findings compatible with OM. ESR/CRP 69/89 respectively blood cultures NGTD Despite being on IV Vanc/zosyn (D6 today), developed serosanguineous fluid filled bullae distal to the ulcer -> drained and sent for wound culture which is pending discussed with the family members at length -> although vancomycin had been therapeutic, pt had not made significant improvement in his R 1st toe infection Also, there was no definitive plan from podiatry regarding surgical intervention unless R LE is revascularized since vanco trough had been subtherapeutic and wound culture is pending, would give IV abx another day or two (while waiting for culture results) before deciding on CT angiogram (2) OLEG (acute kidney injury) Current Visit: Yes Status: Acute Assessment and Plan: Cr improving, ?element of CKD continue IVF for now as he may require IV contrast for CT angiogram or imaging US reassuring avoid nephrotoxins (3) PAD (peripheral artery disease) Current Visit: Yes Status: Chronic Assessment and Plan: 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 TCPO2 R/L feet Vascular surgery input appreciated, family considering CT angiogram but not de cided yet (4) Type 2 diabetes mellitus with foot ulcer Current Visit: Yes Status: Chronic Assessment and Plan: continue basal bolus insulin (5) CAD (coronary artery disease) Current Visit: No Status: Chronic Assessment and Plan: resume ASA, not on statin due to transaminitis (6) Dementia Current Visit: No Status: Chronic Assessment and Plan: continue Namenda (7) DVT prophylaxis Current Visit: Yes Status: Acute Assessment and Plan: SQ heparin - Time Spent with Patient Total time spent is greater than 50% in coordination of care (as documented) at patient's floor/unit and/or counseling patient: Greater than 35 minutes Plan of Care Discussed with: family (had lengthy discussion with pt's son regarding the plan of IV abx, pending wound culture result, and potential for obtaining CT angiogram) Internal Medicine: Result - Labs CBC & Chem 7: 10/13/18 01:43 10/13/18 01:43 Labs: Short CBC 10/13/18 Range/Units 01:43 WBC 6.2 (4.3-11.1) K/mcL Hgb 11.8 L D (12.9-16.9) g/dL Hct 37.3 L (37.5-50.1) % Plt Count 194 (140-400) K/mcL Neutrophils # 3.7 (1.6-8.9) K/mcL BMP 10/13/18 01:43 Sodium 138 Potassium 4.0 Chloride 107 Carbon Dioxide 23 BUN 16 Creatinine 1.17 Glucose 145 H Calcium 8.3 L - ABG Interpretation ABG results: PT/INR, D-dimer PT 13.6 Seconds (9.4-12.1) H 10/09/18 05:26 Consult Discharge Plan - Plan Referrals: NONE,PCP [Primary Care Provider] - (1) Diabetic foot ulcer Qualifiers: Diabetic foot ulcer location: toe Diabetes mellitus type: type 2 Laterality: right Non-pressure ulcer stage: limited to breakdown of skin Qualified Code(s): E11.621 - Type 2 diabetes mellitus with foot ulcer; L97.511 - Non- pressure chronic ulcer of other part of right foot limited to breakdown of skin (4) Type 2 diabetes mellitus with foot ulcer Qualifiers: Diabetes mellitus police lieutenant insulin use: without alf use Qualified Code(s): E11.621 - Type 2 diabetes mellitus with foot ulcer; L97.509 - Non- pressure chronic ulcer of other part of unspecified foot with unspecified severity (5) CAD (coronary artery disease) Qualifiers: Coronary Disease-Associated Artery/Lesion type: unspecified vessel or lesion type [place] vs. transplanted heart: [place] heart Associated angina: angina presence unspecified Qualified Code(s): I25.10 - Atherosclerotic heart disease of [place] coronary artery without angina pectoris (6) Dementia Qualifiers: Dementia type: unspecified type Dementia behavioral disturbance: without behavioral disturbance Qualified Code(s): F03.90 - Unspecified dementia without behavioral disturbance
[2018-10-13] MEDS: 0.9 % Sodium Chloride 1,000 ML IVC SCH (12:25)
[2018-10-13] MEDS: traZODone 50 MG TABLET PO SCH (22:10)
[2018-10-13] MEDS: Insulin DETEMIR 100 UNIT/ML X5UNITS SQ SCH (22:14)
[2018-10-14] MEDS: *HR* Heparin 5,000 UNIT/ML VIAL SQ SCH ×2 (06:38→17:33)
[2018-10-14] MEDS: Piperacillin/Tazobactam 3.375 GM in 0.9 % Sodium Chloride Mini Bag 100 ML IVPB SCH ×3 (06:38→22:16)
[2018-10-14] MEDS: Insulin LISPRO 300 UNITS/3 ML VIAL SQ SCH ×4 (08:20→22:18)
[2018-10-14] MEDS: Aspirin Enteric Coated 81 MG Tablet PO SCH (08:22)
--- NOTE | 2018-10-14 08:29 | Internal Med Progress Note ---
Hospitalist Progress Note - Encounter Date of Encounter: 10/14/18 Time of Encounter: 08:29 - Exam Vitals: Temp Pulse Resp BP Pulse Ox 97.8 F 62 16 130/79 98 10/14/18 08:26 10/14/18 08:26 10/14/18 08:26 10/14/18 08:26 10/14/18 08:26 - Assessment and Plan (1) Type 2 diabetes mellitus with foot ulcer Current Visit: Yes Status: Chronic (2) Diabetic foot ulcer Current Visit: Yes Status: Acute (3) CAD (coronary artery disease) Current Visit: No Status: Chronic (4) Dementia Current Visit: No Status: Chronic (5) DVT prophylaxis Current Visit: Yes Status: Acute (6) OLEG (acute kidney injury) Current Visit: Yes Status: Acute (7) PAD (peripheral artery disease) Current Visit: Yes Status: Chronic - Time Spent with Patient Total time spent is greater than 50% in coordination of care (as documented) at patient's floor/unit and/or counseling patient: Internal Medicine: Result - Labs CBC & Chem 7: 10/13/18 01:43 10/13/18 01:43 - ABG Interpretation ABG results: PT/INR, D-dimer PT 13.6 Seconds (9.4-12.1) H 10/09/18 05:26 Consult Discharge Plan - Plan Referrals: NONE,PCP [Primary Care Provider] - (1) Type 2 diabetes mellitus with foot ulcer Qualifiers: Diabetes mellitus superintendent container terminal insulin use: without chcf use Qualified Code(s): E11.621 - Type 2 diabetes mellitus with foot ulcer; L97.509 - Non- pressure chronic ulcer of other part of unspecified foot with unspecified severity (2) Diabetic foot ulcer Qualifiers: Diabetic foot ulcer location: toe Diabetes mellitus type: type 2 Laterality: right Non-pressure ulcer stage: limited to breakdown of skin Qualified Code(s): E11.621 - Type 2 diabetes mellitus with foot ulcer; L97.511 - Non- pressure chronic ulcer of other part of right foot limited to breakdown of skin (3) CAD (coronary artery disease) Qualifiers: Coronary Disease-Associated Artery/Lesion type: unspecified vessel or lesion type [place] vs. transplanted heart: [place] heart Associated angina: angina presence unspecified Qualified Code(s): I25.10 - Atherosclerotic heart disease of [place] coronary artery without angina pectoris (4) Dementia Qualifiers: Dementia type: unspecified type Dementia behavioral disturbance: without behavioral disturbance Qualified Code(s): F03.90 - Unspecified dementia without behavioral disturbance
[2018-10-14 08:37] LABS: Basophils # 0.1 K/mcL (0.0-0.2); Basophils % 0.9 %; Eosinophils # 0.4 K/mcL (0.0-0.6); Eosinophils % 8.3 %; Hematocrit 38.9 % (37.5-50.1); Hemoglobin 12.2 g/dL (12.9-16.9); Immature Granulocytes % 0.6 % (0-4); Lymphocytes # 1.6 K/mcL (0.6-4.6); Lymphocytes % 29.7 %; Mean Corpuscular HGB Conc 31.4 g/dL (31.6-35.5); Mean Corpuscular Hemoglobin 30.9 pg (28.0-33.3); Mean Corpuscular Volume 98.5 fL (83.0-100.0); Mean Platelet Volume 10.8 fL (9.4-12.4); Monocytes # 0.4 K/mcL (0.0-1.3); Monocytes % 7.5 %; Neutrophils # 2.8 K/mcL (1.6-8.9); Platelet Count 195 K/mcL (140-400); Red Blood Count 3.95 M/mcL (4.19-5.50); White Blood Count 5.3 K/mcL (4.3-11.1)
[2018-10-14 08:58] LABS: BUN/Creatinine Ratio 12 (6-26); Blood Urea Nitrogen 15 mg/dL (8-23); Calcium 8.7 mg/dL (8.6-10.3); Carbon Dioxide 24 mEq/L (23-29); Chloride 107 mEq/L (98-107); Glucose 103 mg/dL (70-105); Osmolality,Calculated 287 (280-300); Potassium 4.1 mEq/L (3.5-5.1); Sodium 138 mEq/L (136-145); eGFR For African Americans > 60 (> 60); eGFR For Non-African Americans 56 (> 60)
--- NOTE | 2018-10-14 10:24 | Podiatry Progress Note ---
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 site No open wound noted SHAQUILLE R DP 0.63, PT 0.58, L DP 0.68, L PT 0.88 TCP02 R DP 26, PT 71, L DP 22, PT 68 ESR 69, CRP 89, WBC 5.3, afebrile MR negative for abscess or OM Wound cultures negative, blood cultures negative, anaerobic cultures pending Right diabetic boot in place Plan: No plan for surgical intervention at this time, as patient has diminished blood flow and likelihood of wound healing is poor Local wound care, dressings changed, see below Continue atb per primary recommendations Will need follow up in wound care center once discharged, please make appointment prior to RIGHT FOOT: Cleansed right foot with 0.9 NS, removed devitalized tissue with tissue knippers and pickups, wound does not extend into the subcutaneous layer, pink tissue noted underneat, painted with betadine x 3, covered with adaptic, 4x4 dry gauze, and kerlix. Secured with medipore tape. LEFT FOOT: Cleansed with 0.9 NS, covered with 4x4 dry gauze, kerlix, and secured with medipore tape Impression: MR/MR foot RT wo/w con IMPRESSION: Evaluation is limited by motion artifact on nearly all sequences. Within this limitation, there is no definite evidence of osteomyelitis. No evidence to suggest abscess formation. D/ / 10/09/2018 10:38:46 Johnnie Elaine / yovanny Interpreting Provider: Johnnie Elaine R #: [id number] XR/XR foot 3V RT IMPRESSION: 1. Soft tissue ulceration along the plantar surface underlying the great toe 2. No acute bony abnormality D/ / Bong Adhikari MD / Bong Adhikari MD Interpreting Provider: Bong Adhikari MD Qualifiers: Diabetic foot ulcer location: toe Diabetes mellitus type: type 2 Laterality: right Non-pressure ulcer stage: limited to breakdown of skin Qualified Code(s): E11.621 - Type 2 diabetes mellitus with foot ulcer; L97.511 - Non-pressure chronic ulcer of other part of right foot limited to breakdown of skin Subjective Principal diagnosis: Cellulitis Interval history: Patient awake sitting in chair. Sitter at bedside. No family present. Pleasantly confused. Denies any fevers, chills, nausea, vomiting, or diarrhea. Denies any calf pain, chest pain, or shortness of breath. No other questions or concerns at this time. Objective - Vital Signs Vital Signs: Vital Signs Temp Pulse Resp BP Pulse Ox 10/14/18 08:26 97.8 F 62 16 130/79 98 10/14/18 03:23 98.2 F 64 16 154/79 98 10/14/18 00:35 165/75 10/13/18 22:11 98 F 61 17 179/76 99 10/13/18 16:30 98.0 F 54 16 148/67 99 10/13/18 11:44 98.6 F 59 18 159/70 98 Intake and Output 10/13/18 10/14/18 10/14/18 23:59 07:59 15:59 Intake Total 100 / 810 710 / 810 Output Total 600 / 600 500 / 500 Balance -600 / -280 -400 / 310 710 / 310 Intake: IV Fluids 100 / 450 350 / 450 Zosyn 3.375 GM In 0.9 % Sodium 100 / 200 100 / 200 Chloride (Mini-Bag +) 100 ML @ 25 mls/hr IVPB Q8H ROBERTA Rx#: [id number] Vancocin 1,500 MG In 0.9 % 250 / 250 Sodium Chloride 250 ML @ 166.67 mls/hr IVPB Q24H ROBERTA Rx#: [id number] Oral 360 / 360 Output: Urine 600 / 600 500 / 500 Other: Meal Breakfast Percent of Meal Consumed 100% # Voids 2 1 # Bowel Movements 1 Weight 83.1 kg Blood Glucose* 135 Patient Weight 10/14/18 23:59 Weight 83.1 kg - Exam Exam: Constitiutional: Alert. Pleasantly confused. Well nourished. No acute distress noted Vascular: faint DP/PT bilaterally, CFT <3 sec to all digits, warm to warm from tibia to toes bilaterally, no calf pain with squeeze BLE Neurologic: Diminished sensation to touch, normal plantar response Dermatologic: Right great toe erythema and peeling skin noted. Colon grade II ulceration noted to 1st submetatarsal, white discoloration noted to right hallux fat pad extending to medial aspect of toe, erythema noted to dorsal aspect of foot, receding from demarcation line, no edema noted, warm to touch, left foot diabetic ulcer with hyperkeratosis noted to medial aspect of foot Musculoskeletal: 2/5 muscle strength and normal tone bilaterally. - Lab Result Diagrams: 10/14/18 07:48 10/14/18 07:48 Labs: Abnormal lab results WBC 11.2 K/mcL (4.3-11.1) H 10/09/18 05:26 RBC 3.95 M/mcL (4.19-5.50) L 10/14/18 07:48 Hgb 12.2 g/dL (12.9-16.9) L 10/14/18 07:48 Hct 37.3 % (37.5-50.1) L 10/13/18 01:43 MCHC 31.4 g/dL (31.6-35.5) L 10/14/18 07:48 Plt Count 132 K/mcL (140-400) L 10/09/18 05:26 ESR 69 mm/hr (0-10) H 10/08/18 14:17 PT 13.6 Seconds (9.4-12.1) H 10/09/18 05:26 Sodium 133 mEq/L (136-145) L 10/09/18 05:26 Carbon Dioxide 22 mEq/L (23-29) L 10/11/18 12:00 BUN 27 mg/dL (8-23) H 10/10/18 17:49 Creatinine 1.31 mg/dL (0.70-1.30) H 10/11/18 12:00 Est GFR ( Amer) 59 (> 60) L 10/10/18 17:49 Est GFR (Non-Af Amer) 56 (> 60) L 10/14/18 07:48 Glucose 145 mg/dL (70-105) H 10/13/18 01:43 POC Glucose 135 mg/dL (70-99) H 10/13/18 22:02 Calcium 8.3 mg/dL (8.6-10.3) L 10/13/18 01:43 C-Reactive Protein 89 mg/L (Less than 10) H 10/08/18 14:17 Vancomycin Trough 11 mcg/mL (5-10) H 10/13/18 16:55 Microbiology, Last 48 Hours 10/13/18 09:00 Wound Culture - Preliminary Right Great Toe No growth. 10/08/18 14:23 Blood Culture - Final Peripheral Venipuncture No growth. Final report. 10/08/18 14:17 Blood Culture - Final Peripheral Venipuncture No growth. Final report. 10/13/18 09:00 Anaerobic Culture - Preliminary Right Great Toe Culture is incubating. Consult Discharge Plan - Plan Referrals: NONE,PCP [Primary Care Provider] -
--- NOTE | 2018-10-14 15:55 | Internal Med Progress Note ---
Hospitalist Progress Note - Encounter Date of Encounter: 10/14/18 Time of Encounter: 11:52 - Subjective Interval History: Examined this morning and [place]. No acute overnight events. Afebrile and hemodynamically stable. Denies any complaints. On and off confused. Not able to offer any complaints an open question. Has poor insight in his medical i llness. Denies any abdominal pain nausea vomiting or diarrhea. - Exam Vitals: Temp Pulse Resp BP Pulse Ox 98.6 F 59 16 147/61 97 10/14/18 12:26 10/14/18 12:26 10/14/18 12:26 10/14/18 12:10/14/18 12:26 Exam: General: In no acute distress. Respiratory exam: CTAB. no accessory muscle use, rales, rhonchi, wheezes Cardiovascular exam: RRR, +S1, +S2. no murmur, gallop, rubs. GI/Abdominal exam: Non-tender, Non-distended, normal bowel sounds, soft, no peritoneal signs. Extremities exam: no pedal edema, no calf tenderness. 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 1 x 1 cm wound along the plantar aspect of Rt 1st. Erythema on the dorsal aspect of R 1st toe. Neurological exam: CN II-XII intact, AO X1, no focal deficits. Skin exam: No skin rash - Assessment and Plan (1) Type 2 diabetes mellitus with foot ulcer Current Visit: Yes Status: Chronic (2) Diabetic foot ulcer Current Visit: Yes Status: Acute (3) CAD (coronary artery disease) Current Visit: No Status: Chronic (4) Dementia Current Visit: No Status: Chronic (5) DVT prophylaxis Current Visit: Yes Status: Acute (6) OLEG (acute kidney injury) Current Visit: Yes Status: Acute (7) PAD (peripheral artery disease) Current Visit: Yes Status: Chronic - Summary of Assessment and Plan Summary of Assessment and Plan: Assessment Acute non-healing Diabetic foot ulcer with cellulitis OLEG Chronic DM PAD CAD Dementia Plan - non healing Diabetic foot ulcer. Had outpatient treatment with PO antibiotics for about 7 days. unclear which antibiotics. Was started on empiric vancomycin and zosyn. Some improvement per podiatry but minimal after IV abx. Has poor blood flow based on SHAQUILLE. Vascular also consulted. Has known Rt PAD. Family decided not to pursue CT angiogram given then do want any surgical intervention. - Previous wound cultures without growth. Repeat from yesterday pending. MRI R foot (although limited by movement) did not show any obvious findings compatible with OM. elevated ESR/CRP 69/89. c/w empiric abx. Will consult ID to consider need for IV abx - OLEG resolved with IVF. US unremarkable. - c/w accuchecks, SSI and basal bolus insulin - c/w ASA, not on statin due to transaminitis - c/w home Namenda - SQ heparin for dvt ppx/ - Time Spent with Patient Total time spent is greater than 50% in coordination of care (as documented) at patient's floor/unit and/or counseling patient: Internal Medicine: Result - Labs CBC & Chem 7: 10/14/18 07:48 10/14/18 07:48 Labs: Short CBC 10/14/18 Range/Units 07:48 WBC 5.3 (4.3-11.1) K/mcL Hgb 12.2 L (12.9-16.9) g/dL Hct 38.9 (37.5-50.1) % Plt Count 195 (140-400) K/mcL Neutrophils # 2.8 (1.6-8.9) K/mcL BMP 10/14/18 07:48 Sodium 138 Potassium 4.1 Chloride 107 Carbon Dioxide 24 BUN 15 Creatinine 1.23 Glucose 103 Calcium 8.7 - ABG Interpretation ABG results: PT/INR, D-dimer PT 13.6 Seconds (9.4-12.1) H 10/09/18 05:26 Consult Discharge Plan - Plan Referrals: NONE,PCP [Primary Care Provider] - (1) Type 2 diabetes mellitus with foot ulcer Qualifiers: Diabetes mellitus residential insulin use: without residential use Qualified Code(s): E11.621 - Type 2 diabetes mellitus with foot ulcer; L97.509 - Non- pressure chronic ulcer of other part of unspecified foot with unspecified severity (2) Diabetic foot ulcer Qualifiers: Diabetic foot ulcer location: toe Diabetes mellitus type: type 2 Laterality: right Non-pressure ulcer stage: limited to breakdown of skin Qualified Code(s): E11.621 - Type 2 diabetes mellitus with foot ulcer; L97.511 - Non- pressure chronic ulcer of other part of right foot limited to breakdown of skin (3) CAD (coronary artery disease) Qualifiers: Coronary Disease-Associated Artery/Lesion type: unspecified vessel or lesion type [place] vs. transplanted heart: [place] heart Associated angina: angina presence unspecified Qualified Code(s): I25.10 - Atherosclerotic heart disease of [place] coronary artery without angina pectoris (4) Dementia Qualifiers: Dementia type: unspecified type Dementia behavioral disturbance: without behavioral disturbance Qualified Code(s): F03.90 - Unspecified dementia without behavioral disturbance
[2018-10-14] MEDS: traZODone 50 MG TABLET PO SCH (22:17)
[2018-10-14] MEDS: 0.9 % Sodium Chloride 1,000 ML IVC SCH (22:22)
[2018-10-14] MEDS: Insulin DETEMIR 100 UNIT/ML X5UNITS SQ SCH (22:27)
[2018-10-14] MEDS: Acetaminophen 325 MG TABLET PO PRN (22:51)
[2018-10-15] MEDS: Piperacillin/Tazobactam 3.375 GM in 0.9 % Sodium Chloride Mini Bag 100 ML IVPB SCH ×2 (04:47→12:37)
[2018-10-15] MEDS: *HR* Heparin 5,000 UNIT/ML VIAL SQ SCH (04:54)
[2018-10-15] MEDS: Aspirin Enteric Coated 81 MG Tablet PO SCH (08:20)
[2018-10-15] MEDS: Insulin LISPRO 300 UNITS/3 ML VIAL SQ SCH ×3 (08:20→18:02)
--- NOTE | 2018-10-15 10:17 | Infectious Disease Consult ---
Infectious Disease-Consult - Encounter Date/Time Date of Encounter: 10/15/18 - Data of Consult Reason for consult: "need for IV antibiotics" Consult date: 10/15/18 Requesting Physician: Zahida Barboza MD Primary Care Provider: PCP NONE - HPI HPI: Mr. 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 The patient was admitted to the hospital 10/08/18 for right foot infection. We are consulted 10/15/18 for further workup and treatment recommendations for right foot infection. Briefly, the patient's 82-year-old male with past medical history as stated above. The patient's dementia precludes his ability to provide me much information regarding the events leading up to this hospitalization, therefore, most of the information is obtained from the medical record. Apparently, the patient developed an ulceration to the right first toe about 3 weeks prior to admission. He was seen in the wound care clinic about a week prior to admission and was started on a short course of oral antibiotics. His symptoms progressed and he was advised to come to the ER. Upon arrival, he was afebrile and h emodynamically stable. His white blood cell count was normal. ESR was elevated at 69 with a CRP of 89. He had a right foot x-ray that was negative. Arterial TC PO2 monitoring was not consistent with healing. Blood cultures were obtained 2 sets and were negative. He was started empirically on IV antibiotics and admitted to the hospital for further evaluation. Since admission, the patient has been evaluated by podiatry. He underwent bilateral SHAQUILLE studies showed moderate occlusive disease bilaterally. He was evaluated by vascular surgery who recommended a CTA rather than a diagnostic ang iogram given the patient's advanced age and comorbidities, however, the family opted to not pursue imaging because they did not feel that they would want the patient have any surgery. He had an MRI of the right foot that was limited due to motion artifact, but no obvious ostial myelitis or abscess was noted. Since admission, he did develop an acute kidney injury which has resolved. He also had one episode of a low-grade temp of 100. His Vanc trough did not become therapeutic until 10/13/18. He developed a fluid-filled blister to the right great toe and a wound culture was obtained that was negative. Today, Podiatry was able to get some purulent drainage from the 1st metatarsal and cultures were re-sent. Currently, he is on vancomycin and Zosyn. We have been asked to evaluate and make further recommendations. During my exam today, the patient states he does not remember why he came to the hospital. He does endorse some mild pain to the right foot. Denies fevers, chills, rigors. Denies chest pain, shortness of breath, or cough. Denies nausea, vomiting, diarrhea, or constipation. Denies abdominal pain or urinary complaints. Denies oral thrush or skin rashes. Denies back or joint pain except as previously mentioned. States his appetite is good. The patient states he thinks he lives in [facility], but according to the records, he lives at a local extended care facility. He denies tobacco, alcohol, or illicit drug use. - ROS Review of Systems: All systems reviewed and no additional remarkable complaints except as stated. - Results CBC & Chem 7: 10/14/18 07:48 10/14/18 07:48 - Exam Vitals: Temp Pulse Resp BP Pulse Ox 97.4 F L 51 16 157/71 98 10/15/18 07:38 10/15/18 07:38 10/15/18 07:38 10/15/18 07:38 10/15/18 07:38 Exam: Head: Atraumatic, normal inspection, normocephalic. Eye: EOMI, PERRLA, no scleral icterus noted. ENT: Mucous membranes moist. No odontogenic infection noted. Neck: Normal inspection, no meningismus. Respiratory: Clear to auscultation. No rales, respiratory distress, rhonchi, or wheezes noted. Cardiovascular: Regular rate and rhythm, S1 and S2 audible. No murmurs, rubs, or gallops. GI: Soft, nondistended, normal bowel sounds. Extremities:No joint swelling, pedal edema, or tenderness noted. Right foot walking boot intact. Back: Normal inspection. No vertebral tenderness noted. Neurological: Alert, oriented 1, no focal deficits. Psychiatric: normal affect, normal mood. Skin: Dry, intact, warm. Normal color. No rashes. Ascorbate Calcium [Vitamin C] 500 mg PO DAILY 10/08/18 [History] Aspirin [Lo-Dose Aspirin EC] 81 mg PO DAILY 10/08/18 [History] Glucagon,Human Recombinant [Glucagon Emergency Kit] 1 mg IJ PRN PRN 10/08/18 [History] Methotrexate 25 mg IM TH 10/08/18 [History] Multivit-Min/Iron/Folic Acid/K [Adults Multivitamin Tablet] 1 tab PO DAILY 10/08/18 [History] Polyethylene Glycol 3350 [MiraLAX] 17 gm PO DAILY 10/08/18 [History] Trazodone HCl 25 mg PO HS 10/08/18 [History] Emollient Combination No.40 [Cetaphil] 1 appl TP AD 10/09/18 [History] Insulin ASPART [Novolog Flexpen] 2 - 14 units SQ ACHS 10/09/18 [History] Insulin DETEMIR [Levemir Flextouch] 10 units SQ HS 10/09/18 [History] Ketoconazole Shampoo [Nizoral Shampoo] 1 appl TP Q48H 10/09/18 [History] Memantine HCl 20 mg PO DAILY 10/09/18 [History] Allergy/AdvReac Type Severity Reaction Status Date / Time metoprolol AdvReac Rash Verified 10/09/18 14:18 - Assessment and Plan (1) Foot infection Current Visit: Yes Status: Acute Location: Right foot. Causative organism: Unclear. No wound cultures obtained on admission. Wound cu ltures obtained 10/13/18 are no growth. Repeat wound cultures sent today, but the patient is started on 8 days of IV antibiotics are not sure how much information that will give us. X-ray and MRI of the right foot negative for OM or abscess. Podiatry consulted. No surgical intervention planned due to poor blood flow to the extremity and risk for non-healing surgical site. No sepsis criteria. Blood cultures drawn 10/08/18 are negative x 2 sets. Currently on Vanc and Zosyn. SNOMED Code(s): 161127788 (2) OLEG (acute kidney injury) Current Visit: Yes Status: Acute Likely secondary to nephrotoxic medications. Improved. Continue to trend. Avoid nephrotoxins as able and dose-adjust medications. SNOMED Code(s): 73486687, 78082148 (3) Diabetic foot ulcer Current Visit: Yes Status: Acute Location: Right foot first toe. Etiology: Unclear. Podiatry consulted and following. Qualifiers: Diabetic foot ulcer location: toe Diabetes mellitus type: type 2 Laterality: right Non-pressure ulcer stage: limited to breakdown of skin Qualified Code(s): E11.621 - Type 2 diabetes mellitus with foot ulcer; L97.511 - Non-pressure chronic ulcer of other part of right foot limited to breakdown of skin SNOMED Code(s): 086998545 (4) PAD (peripheral artery disease) Current Visit: Yes Status: Chronic Bilateral SHAQUILLE studies consistent with moderately occlusive disease. Arterial TCPO2 monitoring consistent with non-healing bilaterally. Vascular surgery consulted. Family declined CTA because they do not want any further surgical intervention. Given that we know the patient has poor blood flow, I'm not sure how successful we can be in treating this infection as it is nearly impossible to get adequate antibiotic tissue penetration without adequate blood flow. Patient's family is n ot amenable to amputation. SNOMED Code(s): 203163810, 103405312 (5) CAD (coronary artery disease) Current Visit: No Status: Chronic Qualifiers: Coronary Disease-Associated Artery/Lesion type: unspecified vessel or lesion type [place] vs. transplanted heart: [place] heart Associated angina: angina presence unspecified Qualified Code(s): I25.10 - Atherosclerotic heart disease of [place] coronary artery without angina pectoris SNOMED Code(s): 46042033 (6) Dementia Current Visit: No Status: Chronic Qualifiers: Dementia type: unspecified type Dementia behavioral disturbance: without behavioral disturbance Qualified Code(s): F03.90 - Unspecified dementia without behavioral disturbance SNOMED Code(s): 31288436 (7) HLD (hyperlipidemia) Current Visit: No Status: Chronic Qualifiers: Hyperlipidemia type: pure hypercholesterolemia Qualified Code(s): E78.00 - Pure hypercholesterolemia, unspecified; E78.0 - Pure hypercholesterolemia SNOMED Code(s): 62321658 (8) HTN (hypertension) Current Visit: No Status: Chronic Qualifiers: Hypertension type: essential hypertension Qualified Code(s): I10 - Es sential (primary) hypertension SNOMED Code(s): 44136932 - Recommendations Recommendations: Await repeat wound cultures to finalize. Wound care per the Podiatry team. From an infection perspective, we are between a rock and a hard spot. At this point, I am not sure that IV antibiotic therapy is appropriate. Fortunately, he does not have osteomyelitis and this appears to be a SSTI. We know he has poor blood flow which ultimately means poor antibiotic tissue penetration for both IV and PO antibiotics. Additionally, we do not have a causative organism and we would need to use broad-spectrum antibiotics which puts him at risk for OELG given his advanced age. The patient is also high risk for going to ECF with a PICC line in place due to his dementia as he has exhibited behavior during this hospitalization of wanting to pull his IV out. Currently, there is no family at the bedside to discuss this with. I have asked nursing to page me if/when family arrives to discuss this further with them. Continue Vancomycin IV. Pharmacy to dose. Goal trough ~15. Continue Zosyn 3.375 grams IV Q8H. Duration of treatment depends on the clinical picture. Monitor renal function and for drug toxicity and dose-adjust antibiotics. Past Med Surg Social Fam HX - Past Medical History Medical history: coronary artery disease, dementia, diabetes, hyperlipidemia, hypertension, myocardial infarction Psychiatric history: no psych history - Past Surgical History Surgical History: coronary bypass (CABG) Additional surgical history: toe amputations - Social History Smoking Status: Former smoker Alcohol use: none Drug use: none - Family History Father Family Member Ethnicity: Non- Living Status: Hx Family Cardiac Disorders: Yes Hx Family Respiratory Disorders: No Hx Family Cancer: No Hx Family GI Disorders: No Hx Family Endocrine Disorder: No Hx Family Neuromuscular Disorders: No Hx Family Neurologic Disorders: No Hx Family HEENT Disorders: No Hx Family Autoimmune Disorders: No Mother Family Member Ethnicity: Non- Living Status: Hx Family Cardiac Disorders: Yes Hx Family Respiratory Disorders: No Hx Family Cancer: No Hx Family GI Disorders: No Hx Family Endocrine Disorder: No Hx Family Neuromuscular Disorders: No Hx Family Neurologic Disorders: No Hx Family HEENT Disorders: No Hx Family Autoimmune Disorders: No Brother Living Status: Consult Discharge Plan - Plan Additional Instructions: Follow up in wound care with Dr. Ríos 1 weeks after discharge 1. Cleanse right foot with warm water and soap daily. 2. Pack wound to right foot with 1/4 inch iodaform daily. 3. Cover with 4x4 dry gauze, kerlix, and medipore tape Wear diabetic boot at all times when ambulating to offload forefoot and prevent further ulceration Referrals: NONE,PCP [Primary Care Provider] -
--- NOTE | 2018-10-15 11:11 | Podiatry Progress Note ---
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 site No open wound noted SHAQUILLE R DP 0.63, PT 0.58, L DP 0.68, L PT 0.88 TCP02 R DP 26, PT 71, L DP 22, PT 68 ESR 69, CRP 89, WBC 5.3, afebrile MR negative for abscess or OM Wound cultures negative, blood cultures negative, anaerobic cultures pending Right diabetic boot in place Plan: No plan for surgical intervention at this time, as patient has diminished blood flow and likelihood of wound healing is poor Wound cultures of purulent drainage sent ID consulted- appreciate recommendations Local wound care, nursing to change and pack wound Dressings changed, see below Will need follow up in wound care center once discharged, please make appointment prior to Will need web content & social media manager to set up home care/wound care RIGHT FOOT: Cleansed right foot with 0.9 NS, painted with betadine x 3, covered with adaptic, 4x4 dry gauze, and kerlix. Secured with medipore tape. LEFT FOOT: Cleansed with 0.9 NS, covered with 4x4 dry gauze, kerlix, and secured with medipore tape Impression: MR/MR foot RT wo/w con IMPRESSION: Evaluation is limited by motion artifact on nearly all sequences. Within this limitation, there is no definite evidence of osteomyelitis. No evidence to suggest abscess formation. D/ / 10/09/2018 10:38:46 Johnnie Elaine / yovanny Interpreting Provider: Johnnie Elaine R #: [id number] XR/XR foot 3V RT IMPRESSION: 1. Soft tissue ulceration along the plantar surface underlying the great toe 2. No acute bony abnormality D/ / Bong Adhikari MD / Bong Adhikari MD Interpreting Provider: Bong Adhikari MD Qualifiers: Diabetic foot ulcer location: toe Diabetes mellitus type: type 2 Laterality: right Non-pressure ulcer stage: limited to breakdown of skin Qualified Code(s): E11.621 - Type 2 diabetes mellitus with foot ulcer; L97.511 - Non-pressure chronic ulcer of other part of right foot limited to breakdown of skin Subjective Principal diagnosis: Cellulitis Interval history: Patient awake sitting in chair. Sitter at bedside. No family present. Pleasantly confused. Denies any fevers, chills, nausea, vomiting, or diarrhea. Denies any calf pain, chest pain, or shortness of breath. No other questions or concerns at this time. Objective - Vital Signs Vital Signs: Vital Signs Temp Pulse Resp BP Pulse Ox 10/15/18 07:38 97.4 F L 51 16 157/71 98 10/15/18 03:18 98.0 F 71 16 146/73 96 10/14/18 23:36 98.7 F 68 15 132/56 97 10/14/18 18:39 97.7 F 56 16 168/73 100 10/14/18 12:26 98.6 F 59 16 147/61 97 Intake and Output 10/14/18 10/15/18 10/15/18 23:59 07:59 15:59 Intake Total 450 / 2740 100 / 460 360 / 460 Output Total 950 / 1750 850 / 850 Balance -500 / 990 -750 / -390 360 / -390 Intake: IV Fluids 350 / 1800 100 / 100 Zosyn 3.375 GM In 0.9 % Sodium 100 / 300 100 / 100 Chloride (Mini-Bag +) 100 ML @ 25 mls/hr IVPB Q8H ROBERTA Rx#: [id number] Vancocin 1,500 MG In 0.9 % 250 / 500 Sodium Chloride 250 ML @ 166.67 mls/hr IVPB Q24H ROBERTA Rx#: [id number] Oral 100 / 940 0 / 360 360 / 360 Output: Urine 950 / 1750 850 / 850 Other: Meal Breakfast Percent of Meal Consumed 100% Stool Size Large Stool Consistency soft Stool Color Brown # Voids 1 1 Weight 83.7 kg Blood Glucose* 136 106 Patient Weight 10/15/18 23:59 Weight 83.7 kg - Exam Exam: Constitiutional: Alert. Pleasantly confused. Well nourished. No acute distress noted Vascular: faint DP/PT bilaterally, CFT <3 sec to all digits, warm to warm from tibia to toes bilaterally, no calf pain with squeeze BLE Neurologic: Diminished sensation to touch, normal plantar response Dermatologic: Right great toe erythema and peeling skin noted. Colon grade II ulceration noted to 1st submetatarsal, with opening noted above ulceration with purulent drainage, erythema noted to dorsal and medial aspect of foot, receding from demarcation line, no edema noted, warm to touch, left foot diabetic ulcer with hyperkeratosis noted to medial aspect of foot Musculoskeletal: 2/5 muscle strength and normal tone bilaterally. - Lab Result Diagrams: 10/14/18 07:48 10/14/18 07:48 Labs: Abnormal lab results WBC 11.2 K/mcL (4.3-11.1) H 10/09/18 05:26 RBC 3.95 M/mcL (4.19-5.50) L 10/14/18 07:48 Hgb 12.2 g/dL (12.9-16.9) L 10/14/18 07:48 Hct 37.3 % (37.5-50.1) L 10/13/18 01:43 MCHC 31.4 g/dL (31.6-35.5) L 10/14/18 07:48 Plt Count 132 K/mcL (140-400) L 10/09/18 05:26 ESR 69 mm/hr (0-10) H 10/08/18 14:17 PT 13.6 Seconds (9.4-12.1) H 10/09/18 05:26 Sodium 133 mEq/L (136-145) L 10/09/18 05:26 Carbon Dioxide 22 mEq/L (23-29) L 10/11/18 12:00 BUN 27 mg/dL (8-23) H 10/10/18 17:49 Creatinine 1.31 mg/dL (0.70-1.30) H 10/11/18 12:00 Est GFR ( Amer) 59 (> 60) L 10/10/18 17:49 Est GFR (Non-Af Amer) 56 (> 60) L 10/14/18 07:48 Glucose 145 mg/dL (70-105) H 10/13/18 01:43 POC Glucose 136 mg/dL (70-99) H 10/14/18 20:19 Calcium 8.3 mg/dL (8.6-10.3) L 10/13/18 01:43 C-Reactive Protein 89 mg/L (Less than 10) H 10/08/18 14:17 Vancomycin Trough 11 mcg/mL (5-10) H 10/13/18 16:55 Microbiology, Last 48 Hours 10/13/18 09:00 Wound Culture - Final Right Great Toe No pathogens isolated. 10/08/18 14:23 Blood Culture - Final Peripheral Venipuncture No growth. Final report. 10/08/18 14:17 Blood Culture - Final Peripheral Venipuncture No growth. Final report. 10/13/18 09:00 Anaerobic Culture - Preliminary Right Great Toe Culture is incubating. Consult Discharge Plan - Plan Additional Instructions: Follow up in wound care with Dr. Ríos 1 weeks after discharge 1. Cleanse right foot with warm water and soap daily. 2. Pack wound to right foot with 1/4 inch iodaform daily. 3. Cover with 4x4 dry gauze, kerlix, and medipore tape Wear diabetic boot at all times when ambulating to offload forefoot and prevent further ulceration Referrals: NONE,PCP [Primary Care Provider] -
[2018-10-15 12:39] LABS: BUN/Creatinine Ratio 12 (6-26); Blood Urea Nitrogen 16 mg/dL (8-23); eGFR For African Americans > 60 (> 60); eGFR For Non-African Americans 52 (> 60)
[2018-10-15 16:10] VITALS: BP 141/62
--- NOTE | 2018-10-15 16:40 | Discharge Summary ---
- NOTES TO OUTPATIENT PROVIDER Notes to Outpatient Provider: Patient will need to follow up podiatry, infectious disease and vascular surgery as outpatient. Patient to finish 14 days course of antibiotic with by mouth antibiotics for 8 more days. Patient will need to follow up BMP in 1-2 week monitor renal function. Orders not resulted at time of discharge: Pending orders 10/12/18 12:07 Culture,Anaerobic [RM] Routine 10/15/18 11:25 Culture,Anaerobic [RM] Routine Culture,Wound [RM] Routine Date of Encounter: 10/15/18 Time of Encounter: 16:37 - Discharge Diagnosis (1) Type 2 diabetes mellitus with foot ulcer Priority: Secondary Status: Chronic Qualifiers: Diabetes mellitus exterminator helper insulin use: without jail use Qualified Code(s): E11.621 - Type 2 diabetes mellitus with foot ulcer; L97.509 - Non- pressure chronic ulcer of other part of unspecified foot with unspecified severity (2) Diabetic foot ulcer Priority: Primary Status: Acute Qualifiers: Diabetic foot ulcer location: toe Diabetes mellitus type: type 2 Laterality: right Non-pressure ulcer stage: limited to breakdown of skin Qualified Code(s): E11.621 - Type 2 diabetes mellitus with foot ulcer; L97.511 - Non-pressure chronic ulcer of other part of right foot limited to breakdown of skin (3) CAD (coronary artery disease) Priority: Secondary Status: Chronic Qualifiers: Coronary Disease-Associated Artery/Lesion type: unspecified vessel or lesion type [place] vs. transplanted heart: [place] heart Associated angina: angina presence unspecified Qualified Code(s): I25.10 - Atherosclerotic heart disease of [place] coronary artery without angina pectoris (4) Dementia Priority: Secondary Status: Chronic Qualifiers: Dementia type: unspecified type Dementia behavioral disturbance: without behavioral disturbance Qualified Code(s): F03.90 - Unspecified dementia without behavioral disturbance (5) DVT prophylaxis Priority: Secondary Status: Acute (6) OLEG (acute kidney injury) Priority: Primary Status: Acute (7) PAD (peripheral artery disease) Priority: Secondary Status: Chronic Hospital course: Mr. 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 Patient was started on empiric IV antibiotics with vancomycin and Zosyn. Patient had elevated ESR CRP . Also signs of oleg. Podiatry was consulted. Patient had SHAQUILLE and TCPO2 measurements which showed poor perfusion. Vascular surgery were consulted who did not recommend any surgical intervention given severe peripheral artery disease after discussion with family. Patient was continued on empiric vancomycin and Zosyn. Wound culture and blood cultures remain negative. Repeat wound cultures pending. Given patient had poor blood flow infectious disease consult was obtained for need for IV medication however given patient's dementia and the risk of him pulling on his IV access was high and given difference between IV and by mouth not be significantly different was decided to discharge patient on by mouth antibiotics with doxycycline and Augmentin for 8 more days to finish 14 day course of treatment. Patient also did develop OLEG after visualization which was thought to be due to vancomycin and Zosyn. It would be stopped on discharge. He will need to follow up outpatient for BMP checked in 1-2 weeks. Patient will need to follow up with pcp, podiatry, vascular surgery and Bladimir mata infectious disease at outpatient. [facility]. Discharge discussed with: patient, family, nurse, social work, [employer] financial[employer] consultant - Time Spent with Patient Total time spent providing and/or coordinating discharge services: Time spent: Greater than 30 minutes (40) - Discharge Medications Prescriptions: New Amoxicillin/Clavulanate [Augmentin] 875 mg PO BIDWM 8 Days #16 tablet Doxycycline 100 mg PO BID 8 Days #16 capsule Continued Trazodone HCl 25 mg PO HS Multivit-Min/Iron/Folic Acid/K [Adults Multivitamin Tablet] 1 tab PO DAILY Polyethylene Glycol 3350 [MiraLAX] 17 gm PO DAILY Methotrexate 25 mg IM TH Glucagon,Human Recombinant [Glucagon Emergency Kit] 1 mg IJ PRN PRN PRN Reason: Blood Sugar - Low Aspirin [Lo-Dose Aspirin EC] 81 mg PO DAILY Ascorbate Calcium [Vitamin C] 500 mg PO DAILY Emollient Combination No.40 [Cetaphil] 1 appl TP AD Insulin ASPART [Novolog Flexpen] 2 - 14 units SQ ACHS Insulin DETEMIR [Levemir Flextouch] 10 units SQ HS Ketoconazole Shampoo [Nizoral Shampoo] 1 appl TP Q48H Memantine HCl 20 mg PO DAILY Home Medications: Ascorbate Calcium [Vitamin C] 500 mg PO DAILY 10/08/18 [History] Aspirin [Lo-Dose Aspirin EC] 81 mg PO DAILY 10/08/18 [History] Glucagon,Human Recombinant [Glucagon Emergency Kit] 1 mg IJ PRN PRN 10/08/18 [H istory] Methotrexate 25 mg IM TH 10/08/18 [History] Multivit-Min/Iron/Folic Acid/K [Adults Multivitamin Tablet] 1 tab PO DAILY 10/08/18 [History] Polyethylene Glycol 3350 [MiraLAX] 17 gm PO DAILY 10/08/18 [History] Trazodone HCl 25 mg PO HS 10/08/18 [History] Emollient Combination No.40 [Cetaphil] 1 appl TP AD 10/09/18 [History] Insulin ASPART [Novolog Flexpen] 2 - 14 units SQ ACHS 10/09/18 [History] Insulin DETEMIR [Levemir Flextouch] 10 units SQ HS 10/09/18 [History] Ketoconazole Shampoo [Nizoral Shampoo] 1 appl TP Q48H 10/09/18 [History] Memantine HCl 20 mg PO DAILY 10/09/18 [History] Amoxicillin/Clavulanate [Augmentin] 875 mg PO BIDWM 8 Days #16 tablet 10/15/18 [Rx] Doxycycline 100 mg PO BID 8 Days #16 capsule 10/15/18 [Rx] Allergies/Adverse Reactions: Allergy/AdvReac Type Severity Reaction Status Date / Time metoprolol AdvReac Rash Verified 10/09/18 14:18 Date of admission: 10/09/18 15:47 Primary care physician: PCP NONE Consults: 10/08/18 15:59 Consult to Podiatry [CONS] Stat Consulting Provider: Podiatry [facility] Reason for Consult: Foot Wound Infection Time Notified: 15:59 Call Completed: Yes 10/09/18 07:50 Consult to Vascular Surgery [CONS] Routine Consulting Provider: Vascular Surgery Michaela Reason for Consult: PAD, pre-occlusive R 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 Now with R toe ulcer and cellulitis Call Completed: Yes 10/09/18 10:46 Consult to Butt Welder [CONS] Routine Reason for SW Consult: placement 10/14/18 15:52 Consult to Infectious Diseases [CONS] Routine Consulting Provider: Infectious Disease Michaela Reason for Consult: need for IV antibiotics Call Completed: Yes Discharging clinician: Zahida Barboza - Constitutional Vitals: Temp Pulse Resp BP Pulse Ox 98.7 F 61 16 141/62 98 10/15/18 16:00 10/15/18 16:00 10/15/18 16:00 10/15/18 16:00 10/15/18 16:00 Exam: General: In no acute distress. Respiratory exam: CTAB. no accessory muscle use, rales, rhonchi, wheezes Cardiovascular exam: RRR, +S1, +S2. no murmur, gallop, rubs. GI/Abdominal exam: Non-tender, Non-distended, normal bowel sounds, soft, no peritoneal signs. Extremities exam: no pedal edema, no calf tenderness. 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 1 x 1 cm wound along the plantar aspect of Rt 1st. slight more drainage. Neurological exam: CN II-XII intact, AO X1, no focal deficits. Skin exam: No skin rash. - Patient Status Disposition: Transfer SNF Condition: Fair - Discharge Instructions Follow Up With: NONE,PCP [Primary Care Provider] - Forms: ED Satisfaction Letter Additional Instructions: Follow up in wound care with Dr. Ríos 1 weeks after discharge 1. Cleanse right foot with warm water and soap daily. 2. Pack wound to right foot with 1/4 inch iodaform daily. 3. Cover with 4x4 dry gauze, kerlix, and medipore tape Wear diabetic boot at all times when ambulating to offload forefoot and prevent further ulceration - Diet and Activity Activity: as per physical therapy
--- NOTE | 2018-10-15 16:57 | Physician Discharge Referral ---
ExtendedCare Referral Info Institutional Level of Care: Skilled - Diagnosis (1) Type 2 diabetes mellitus with foot ulcer Status: Chronic (2) Diabetic foot ulcer Status: Acute (3) CAD (coronary artery disease) Status: Chronic (4) Dementia Status: Chronic (5) DVT prophylaxis Status: Acute (6) OLEG (acute kidney injury) Status: Acute (7) PAD (peripheral artery disease) Status: Chronic - Transfer Medications Prescriptions: Amoxicillin/Clavulanate [Augmentin] 875 mg PO BIDWM 8 Days #16 tablet Doxycycline 100 mg PO BID 8 Days #16 capsule Home Medications: Ascorbate Calcium [Vitamin C] 500 mg PO DAILY 10/08/18 [History] Aspirin [Lo-Dose Aspirin EC] 81 mg PO DAILY 10/08/18 [History] Glucagon,Human Recombinant [Glucagon Emergency Kit] 1 mg IJ PRN PRN 10/08/18 [History] Methotrexate 25 mg IM TH 10/08/18 [History] Multivit-Min/Iron/Folic Acid/K [Adults Multivitamin Tablet] 1 tab PO DAILY 10/08/18 [History] Polyethylene Glycol 3350 [MiraLAX] 17 gm PO DAILY 10/08/18 [History] Trazodone HCl 25 mg PO HS 10/08/18 [History] Emollient Combination No.40 [Cetaphil] 1 appl TP AD 10/09/18 [History] Insulin ASPART [Novolog Flexpen] 2 - 14 units SQ ACHS 10/09/18 [History] Insulin DETEMIR [Levemir Flextouch] 10 units SQ HS 10/09/18 [History] Ketoconazole Shampoo [Nizoral Shampoo] 1 appl TP Q48H 10/09/18 [History] Memantine HCl 20 mg PO DAILY 10/09/18 [History] Amoxicillin/Clavulanate [Augmentin] 875 mg PO BIDWM 8 Days #16 tablet 10/15/18 [Rx] Doxycycline 100 mg PO BID 8 Days #16 capsule 10/15/18 [Rx] Allergies/Adverse Reactions: Allergy/AdvReac Type Severity Reaction Status Date / Time metoprolol AdvReac Rash Verified 10/09/18 14:18 - Respiratory Orders Smoking Cessation: Smoking cessation has been advised. For more information, call the [place] Tobacco Quit Line at 8-931-PETX-NOW. CERTIFICATION: I certify that the transfer of the above named patient to an Extended Care Facility is necessary for the continuing treatment of the diagnosis listed. The above information is true and accurate reflection of patient's current condition. Confidential - Redisclosure prohibited without a patient's written consent.
[2018-10-15] MEDS ORDERED: Aminoglycoside Consult 1 EACH MC ONE (18:36)
== END 2018-10-15 18:37 | DRG 639 ==
LOC: 3NENU 13:34 → EMEROOARM 13:34 → SUATTDRO 16:13 → 3NENU 16:40 → SUATTDRO 10-09 15:47
PROVIDERS: ADMIT Student in an Organized Health Care Education/Training Program; ATTEND Internal Medicine